=== PATIENT | female | born 1940 | race Caucasian/White ===

== ENCOUNTER 2022-09-11 12:00 | Outpatient (OUT) | payer MEDICARE, SELFPAY | END 2022-09-11 12:01 | disposition home or self-care (01) | LOC: PST 09-20 18:29 | PROVIDERS: PCP Internal Medicine; Visit Provider Surgery | DX: Z01.818 Encounter for other preprocedural examination (principal); R19.4 Change in bowel habit ==

== ENCOUNTER 2022-09-19 07:12 | Day surgery (SDC) | payer MEDICARE, SELFPAY ==
--- NOTE | 2022-09-19 | OP_ITS ---
OPERATION DATE: ??09/19/2022 PREOPERATIVE DIAGNOSIS:? Change in bowel habits with frequent loose stools. POSTOPERATIVE DIAGNOSIS:? Redundant with sigmoid diverticulosis and a patulous ileocecal valve, normal terminal ileum. PROCEDURE:? Colonoscopy to terminal ileum. SURGEON:? Pj Whatley M.D. ANESTHESIA:? Monitored anesthesia care. ESTIMATED BLOOD LOSS:? Zero. INDICATIONS AND CONSENT:? Patient is an 82-year-old female with history of intermittent loose stools, which has been a change in bowels for her.? Indications, risks, benefits, alternatives of proceeding with colonoscopy were explained extensively to the patient, including the risks of bleeding, colon perforation or anesthetic complications.? All of her questions were answered.? Informed consent was obtained. PROCEDURE:? Patient brought to the operating room, placed in the left lateral decubitus position.? Monitored anesthesia care was provided.? Rectal exam was performed which showed no masses or blood.? The scope was inserted into the anal canal.? Under direct visualization was advanced.? With the aid of abdominal compression, it was advanced to the cecum where cecal markings were clearly identified.? There was noted to be a good prep.? Upon withdrawal of the scope, mucosal surfaces were carefully examined.? There were no mass lesions or polyps.? No inflammatory changes or ulcerations.? There was noted to be a patulous ileocecal valve and the terminal ileum had been intubated, and there were no inflammatory changes or ulcerations.? There was moderate sigmoid diverticulosis as well as some redundancy of the colon. ?The scope was retroflexed in the anal canal.? There was no significant hemorrhoidal disease.? The scope was then withdrawn.? Patient tolerated procedure well, was sent to recovery room in good condition. no further colorectal screening required. CC:? [facility]
[2022-09-19 07:37] VITALS: BP 148/91; PULSE 99; RESP 16; TEMP 36.3; O2SAT 98; BMI 27.7
[2022-09-19] MEDS: LACTATED RINGER'S SOLUTION 1,000 ML 50 ML IV (07:48)
[2022-09-19 08:25] VITALS: BP 132/78; PULSE 90; RESP 18; TEMP 36.6; O2SAT 95
[2022-09-19 08:39] VITALS: BP 158/99; PULSE 72; RESP 16; O2SAT 98
[2022-09-19 08:53] VITALS: BP 160/87; PULSE 69; RESP 18; O2SAT 98
== END 2022-09-19 08:55 | disposition home or self-care (01) ==
PROVIDERS: PCP Internal Medicine; Visit Provider Surgery
PROC: (CPT 45378; principal; 2022-09-19 08:20)
DX: R19.4 Change in bowel habit (principal); K57.30 Diverticulosis of large intestine without perforation or abscess without bleeding; Z85.3 Personal history of malignant neoplasm of breast; K21.9 Gastro-esophageal reflux disease without esophagitis; I10 Essential (primary) hypertension; E78.5 Hyperlipidemia, unspecified; M06.9 Rheumatoid arthritis, unspecified; Z79.899 Other long term (current) drug therapy
CPT/HCPCS: 45378; J2704

== ENCOUNTER 2022-12-06 09:11 | Outpatient (OUT) | payer MEDICARE, SELFPAY ==
[2022-12-06 09:35] LABS: Basophils Percent Auto 0.6 % (0.2-2.0); Eosinophils Absolute Auto 0.1 10^3/uL (0.0-0.7); Eosinophils Percent Auto 1.1 % (0.9-7.0); Hematocrit 39.4 % (36.0-48.0); Immature Granulocytes Abs Auto 0.02 10^3/uL (0.00-0.03); Immature Granulocytes Pct Auto 0.3 % (0.0-0.5); Lymphocytes Absolute Auto 1.6 10^3/uL (1.2-3.8); Lymphocytes Percent Auto 24.5 % (20.5-60.0); Mean Corpuscular Hemoglobin 29.1 pg (26.7-34.0); Mean Corpuscular Volume 88.1 fL (81.0-99.0); Mean Platelet Volume 10.8 fL (9.5-13.5); Monocytes Absolute Auto 0.6 10^3/uL (0.3-0.8); Monocytes Percent Auto 8.6 % (1.7-12.0); Neutrophils Absolute Auto 4.2 10^3/uL (1.4-6.5); Neutrophils Percent Auto 64.9 % (43.0-75.0); Platelet Count 205 10^3/uL (150-450); Red Blood Count 4.47 10^6/uL (4.20-5.40); Red Cell Distribution Width 14.8 % (11.0-15.0); White Blood Count 6.5 10^3/uL (4.0-11.0)
[2022-12-06 10:40] LABS: Estimated Average Glucose 120 mg/dL; Glycohemoglobin A1C 5.8 % (4.5-6.2)
[2022-12-06 10:45] LABS: Anion Gap 8.2; BUN Creatinine Ratio 14.3; Calcium 9.5 mg/dL (8.5-10.1); Carbon Dioxide 32.6 mmol/L (21.0-32.0); Chloride 99 mmol/L (98-107); Chol HDL Ratio 2.7; Cholesterol 186 mg/dL (<=200); Estimated GFR (African America >60 (>=60); Estimated GFR (Non-African Ame 59 (>=60); Glucose 108 mg/dL (74-106); HDL Cholesterol 70 mg/dL (40-60); Potassium 3.8 mmol/L (3.5-5.1); Sodium 136 mmol/L (136-145); Thyroid Stimulating Hormone 3.554 uIU/mL (0.358-3.740); Triglycerides 109 mg/dL (<=150); VLDL CHOLESTEROL 21.8 mg/dL
[2022-12-06 12:59] LABS: Bilirubin Urine NEGATIVE (NEGATIVE); Blood Urine SMALL (NEGATIVE); Clarity Urine CLEAR (CLEAR); Color Urine YELLOW (YELLOW); Glucose Urine UA NEGATIVE (NEGATIVE); Ketones Urine NEGATIVE (NEGATIVE); Leukocyte Esterase Urine LARGE (NEGATIVE); Nitrite Urine NEGATIVE (NEGATIVE); Protein Urine TRACE mg/dL (NEG/TRACE); Urobilinogen Urine 0.2 EU/dL (0.2-1.0)
[2022-12-06 13:21] LABS: Bacteria Urine MODERATE #/HPF (NONE SEEN); Mucus Urine NONE SEEN (NONE SEEN); Squamous Epithelial Cell Urine FEW #/LPF (NONE/RARE); WBC Urine 20-50 #/HPF (NONE SEEN)
[2022-12-06 13:22] LABS: Cast Seen? NONE SEEN #/LPF (NONE SEEN); Crystals Seen? None Seen #/HPF (None Seen); Urine Culture Indicated ALREADY ORDERED
== END 2022-12-06 09:12 | disposition home or self-care (01) ==
LOC: LAB 09:13
PROVIDERS: PCP Internal Medicine; Visit Provider Internal Medicine
DX: E78.01 Familial hypercholesterolemia (principal); I10 Essential (primary) hypertension; R73.01 Impaired fasting glucose; R35.89 Other polyuria; Z79.899 Other long term (current) drug therapy; R53.83 Other fatigue
CPT/HCPCS: 36415; 80048; 80061; 81001; 83036; 84443; 85025; 87086; 87186

== ENCOUNTER 2022-12-24 10:43 | Outpatient (OUT) | payer MEDICARE, SELFPAY ==
--- NOTE | 2022-12-24 | XR_ITS ---
[address] [address] Patient Name: MITCH LUNSFORD MRN: [id number] date: 1940 Sex: F Assigned Patient Location: [facility] Current Patient Location: [facility] Accession/Order Number: [id number] Exam Date: 12/24/2022 11:20 Report Date: 12/24/2022 11:46 At the request of: VELVET MEEHAN Procedure: XR DEXA axial skeleton EXAMINATION: XR DEXA axial skeleton HISTORY: Z78.0, menopause COMPARISON: DEXA bone densitometry 09/23/2020 TECHNIQUE: Dual-energy X-ray absorptiometry (DXA) was performed. FINDINGS: SPINE ANALYSIS: Average bone mineral density is 1.108 g/cm2. T-score (standard deviation relative to young adult mean): -0.6 . +1.2% change since prior study. HIP ANALYSIS: Lowest bone mineral density is within the left femoral neck, 0.733 g/cm2. T-score (standard deviation relative to young adult mean): -2.2 . -1.8% change since prior study. XR/XR DEXA axial skeleton IMPRESSION: World [employer] Classification: Osteopenia - Moderate Fracture Risk Electronically authenticated by: ИРИНА MERCHANT Date: 12/24/2022 11:46
== END 2022-12-24 10:44 | disposition home or self-care (01) ==
LOC: RAD 10:43
PROVIDERS: PCP Internal Medicine; Visit Provider Internal Medicine
DX: Z78.0 Asymptomatic menopausal state (principal); M85.80 Other specified disorders of bone density and structure, unspecified site
CPT/HCPCS: 77080

== ENCOUNTER 2024-01-09 08:59 | Outpatient (OUT) | payer MEDICARE, SELFPAY ==
--- NOTE | 2024-01-09 09:02 | MM_ITS ---
Patient Name: MITCH LUNSFORD MR#: [id number] : 1940 Exam Date: 01/09/2024 Ordering Doctor: DR Kirby Bernal D.O. RADIOLOGY REPORT PROCEDURE: MM TOMOSYNTHESIS SCREENING BI COMPARISON: MG MAMM DIAGNOSTIC 3D [place] CAD, 10/20/2021. MG MAMM DIAGNOSTIC 3D [place] CAD, 09/23/2020. MG MAMM [place] DIAG W CAD, 09/17/2019. MAMMO POST BIOPSY UNILATERAL RIGHT, 06/20/2012. INDICATIONS: Screening Calculator Name NCI Breast Cancer Risk Assessment Tool 5 Year Breast Cancer Risk n/a% Lifetime Breast Cancer Risk n/a% Personal Breast Cancer Yes, 2012 right lumpectomy Personal Ovarian Cancer No Treatments radiation and chemotherapy Family Cancers Sister with breast cancer at age 63; Sister with breast cancer at age 70; Mother with ovarian cancer at age 59. LOCATION: [facility] BREAST COMPOSITION: There are scattered areas of fibroglandular density. FINDINGS: DIAGNOSTIC CATEGORY 2--BENIGN FINDING: RIGHT BREAST: No significant suspicious finding. No significant change has occurred. LEFT BREAST: No significant suspicious finding. Scattered benign-appearing calcifications are present. RECOMMENDATIONS: ROUTINE MAMMOGRAM AND CLINICAL EVALUATION IN 12 MONTHS. PLEASE NOTE: A NORMAL MAMMOGRAM DOES NOT EXCLUDE THE POSSIBILITY OF BREAST CANCER. A CLINICALLY SUSPICIOUS PALPABLE LUMP SHOULD BE BIOPSIED. Dictated by: Jose Yousif M.D. on 01/10/2024 at 08:10 Approved by: Jose Yousif M.D. on 01/10/2024 at 08:17
--- OUTSIDE RECORDS SUMMARY | 2024-01-09 09:13 | XMS_ITS | CCD ---
Author Organization [facility] Care Team Providers Care Senior Financial Analyst Name Role Phone DR JOSE YOUSIF Consulting Unavailable GABE, DR VERDIN Admitting Unavailable GABE, DR VERDIN Attending Unavailable GABE, DR VERDIN Primary Care Unavailable GABE, DR VERDIN Primary Care Unavailable GABE, DR VERDIN Admitting Unavailable GABE, DR VERDIN Attending Unavailable GABE, DR VERDIN Consulting Unavailable SHONDA, DR JOSE Xavier Consulting Unavailable KIRBY BERNAL Primary Care Physician Pj BANEGAS Attending Unavailable Kirby Bernal Unavailable JO ANN DIEGO Attending Unavailable MYLES, JO ANN Mcknight Attending Unavailable JO ANN DIEGO Attending Unavailable JO ANN DIEGO Attending Unavailable JO ANN DIEGO Attending Unavailable JO ANN DIEGO Attending Unavailable JO ANN DIEGO Attending Unavailable Kirby Bernal MD Primary Care Provider Allergies Allergy Classification Reported Allergen(s) Allergy Type Date of Onset Reaction(s) Facility (1 source) Sulfonamides (Antibiotic) Drug allergy (disorder) 3 [facility] Repository (2 sources) Sulfonamides (Antibiotic); Translations: [sulfa drugs] Drug allergy 3 Urticaria (disorder) [facility] [place] (2 sources) Sulfonamides (Antibiotic) Drug Allergy 3 Hives, Rash [facility] Work Phone: Medications Current Medications Medication Drug Class(es) Dates Sig (Normalized) Sig (Original) atorvastatin 40 mg oral tablet (8 sources) HMG-CoA Reductase Inhibitor Start: 08-01-2022 End: 12-27-2023 take 40 mg by mouth once daily Atorvastatin Active 40 MG PO Daily 90 90 December 27, 2023 10:27am ciprofloxacin 250 mg oral tablet (3 sources) Quinolone Antimicrobial Start: 12-07-2022 ciprofloxacin (Cipro) 250 MG tablet 12/08/2022 Active hydroCHLOROthiazide 12.5 mg / lisinopril 20 mg oral tablet (8 sources) Thiazide Diuretic, Angiotensin Converting Enzyme Inhibitor Start: 10-16-2023 take 1 tablet by mouth once daily Lisinopril-Hydroc hlorothiazide Active 0 .ROUTE .COMPLEX 90 October 16, 2023 1:25pm Take 1 tablet by mouth once daily Start: 10-16-2023 End: 10-16-2023 take 1 tablet by mouth once daily Lisinopril-Hydrochlorothiazide Discontin ued 1 TAB PO Daily October 16, 2023 12:00am October 16, 2023 1:31pm Start: 08-13-2022 take 1 tablet by jigna th once daily hydrochlorothiazide-lisinopril 12.5 mg-2 0 mg Tab 1 tab(s), Oral, Daily, Refill(s) 0 Start Date: 08/13/22 Status: Ordered Start: 08-13-2022 lisinopril-hyd roCHLOROthiazide 20-12.5 MG tablet Take by mouth. 08/13/2022 Active metoprolol tartrate 25 mg oral tablet (7 sources) beta-Adrenergic Huy Start: 08-13-2022 take 25 mg by mouth twice daily Metoprolol Tartrate Active 25 MG PO Twice daily October 16, 2023 12:00am Problems Active Problems Problem Classification Problem Date Documented Date Episodic/Chronic Abdominal pain (5 sources) Pelvic and perineal pain; Translations: [PELVIC AND PERINEAL PAIN] Onset: 10-19-19 Episodic Cancer of breast (4 sources) Personal history of malignant neoplasm of breast; Translations: [History of malignant neoplasm of breast] Onset: 10-25-19 22 08-13-2022 Episodic Cardiac dysrhythmias (3 sources) Intermittent palpitations; Translations: [Palpitations] Episodic Cataract (2 sources) Bilateral age-related nuclear cataracts; Translations: [Age-related nuclear cataract, bilateral] Onset: 12-17-19 24 12-17-2023 Chronic Diabetes mellitus without complication (6 sources) Impaired fasting glucose; Translations: [Impaired fasting glycemia] Onset: 10-25-19 22 08-13-2022 Episodic Disorders of lipid metabolism (8 sources) Familial hypercholesterolemia; Translations: [Hyperlipidemia] Onset: 10-25-1908-13-2022 Chronic Diverticulosis and diverticulitis (1 source) Diverticular disease 08-17-2022 Chronic Esophageal disorders (5 sources) Gastroesophageal reflux disease; Translations: [Gastro-esophageal reflux disease without esophagitis] 08-13-2022 Chronic Essential hypertension (14 sources) Essential (primary) hypertension; Translations: [Hypertensive disorder] Onset: 10-21-19 Chronic Hemorrhoids (1 source) Internal hemorrhoids 08-17-2022 Episodic Inflammation; infection of eye (except that caused by tuberculosis or sexually transmitteddisease) (3 sources) Keratoconjunctivitis sicca; Translations: [Keratoconjunctivitis sicca, not specified as Sjogren's, bilateral] Onset: 07-03-1907-03-2023 Chronic Malaise and fatigue (1 source) Other fatigue Episodic Other aftercare (2 sources) Other mcc (current) drug therapy; Translations: [OTH [facility] CURRENT DRUG THERAPY] Onset: 10-25-19 Episodic Other bone disease and musculoskeletal deformities (1 source) Osteopenia 08-13-2022 Episodic Other bone disease and musculoskeletal deformities (3 sources) Other specified disorders of bone density and structure, left thigh; Translations: [Osteopenia of neck of left femur] Episodic Other bone disease and musculoskeletal deformities (3 sources) Other specified disorders of bone density and structure, right thigh; Translations: [Osteopenia of neck of right femur] Episodic Other gastrointestinal disorders (5 sources) Irritable bowel syndrome; Translations: [Mixed irritable bowel syndrome] 08-13-2022 Chronic Other gastrointestinal disorders (1 source) Mixed irritable bowel syndrome Chronic Other gastrointestinal disorders (1 source) Irritable bowel syndrome without diarrhea; Translations: [Irritable bowel syndrome] 12-27-2023 Chronic Other gastrointestinal disorders (2 sources) Diarrhea; Translations: [Diarrhea, unspecified] Onset: 08-22-19 Episodic Other gastrointestinal disorders (5 sources) Altered bowel function; Translations: [Change in bowel habit] Onset: 08-22-19 Episodic Other gastrointestinal disorders (4 sources) Urgent desire for stool; Translations: [Fecal urgency] 08-13-2022 Episodic Other gastrointestinal disorders (3 sources) Abdominal bloating; Translations: [Abdominal distension (gaseous)] Episodic Other nutritional; endocrine; and metabolic disorders (1 source) Overweight 08-21-2022 Episodic Other nutritional; endocrine; and metabolic disorders (1 source) Overweight in adulthood with body mass index of 25 or more but less than 30 08-21-2022 Episodic Other screening for suspected conditions (not mental disorders or infectious disease) (3 sources) Encounter for screening mammogram for malignant neoplasm of breast; Translations: [Patient encounter status] Episodic Other upper respiratory disease (1 source) Seasonal allergic rhinitis 08-13-2022 Chronic Other upper respiratory disease (3 sources) Allergic rhinitis due to pollen; Translations: [Allergic rhinitis due to pollen] Chronic Residual codes; unclassified (1 source) Family history of malignant neoplasm of breast; Translations: [FAMILY HX MALIG NEOPLASM OF BREAST] Onset: 10-25-19 Episodic Residual codes; unclassified (1 source) Family history of malignant neoplasm of ovary; Translations: [FAM HX MALIGNANT NEOPLASM OVARY] Onset: 10-25-19 Episodic Residual codes; unclassified (1 source) Asymptomatic menopausal state Episodic Retinal detachments; defects; vascular occlusion; and retinopathy (3 sources) Exudative age-related macular degeneration; Translations: [Exudative age-related macular degeneration, right eye, with active choroidal neovascularization] Onset: 08-28-19 23 08-27-2022 Chronic Rheumatoid arthritis and related disease (3 sources) Rheumatoid arthritis; Translations: [Rheumatoid arthritis, unspecified] Onset: 12-03-19 14 08-13-2022 Chronic Spondylosis; intervertebral disc disorders; other back problems (6 sources) Cervical spondylosis; Translations: [Cervical spondylosis without myelopathy] 08-13-2022 Chronic Urinary tract infections (1 source) Acute cystitis without hematuria Episodic Past or Other Problems Problem Classification Problem Date Documented Da te Episodic/Chronic Unclassified (1 source) Polyuria R35.89 Results Test Name Value Interpretation Reference Range Facility Optical coherence tomography study reporton 12-17-2023 [facility] Radiology Study observation (narrative) [facility] Healthcare Study observation Right reti na by OCTon 12-17-2023 [facility] Validascar e Radiology Study observation (narrative) [facility] Healthcare Outside Colonoscopyon 2022 Outside Colonoscopy [id number] [id number]:127 Normal [facility] Consent for Procedure/Surger yon 08-22-2022 Consent for Procedure/Surgery [id number] 4#[id number]:127 Normal [facility] Ambulatory Visit Summaryon 0 08-21-2022 Ambulatory Visit Summary MITCH LUNSFORD Farzana :1940 Visit Date:08/21/2022 Ambulatory Visit Instructions Your Diagnosis Change in bowel habits Frequent loose stools Your Care Team Attending Physician - MAKENZIE PONCE, Pj Xavier Primary Care Physician - KIRBY BERNAL DO This Is Your Medications List Contact prescribing physician if questions or concerns atorvastatin (atorvastatin 40 mg Tab) hydrochlorothiazide -lisinopril (hydrochlorothiazid e-lisinopril 12.5 mg-20 mg Tab) metoprolol (Metoprolol tartrate 25 mg Tab) Procedures Performed Colonoscopy (06/12/2013), Lumpectomy of breast (2012), Right hemithyroidectomy. Discharge Vitals Heart Rate (Peripheral) 72 Respiratory Rate 16 Blood Pressure 118/86 Height 158.7 cm Height 62 in Weight 67.4 kg Weight 148.28 lb BMI 26.76 Medications What How Much When Instructions Unchanged atorvastatin (atorvastatin 40 mg Tab) 1 Tablets By Mouth Every day Contact prescribing physician if questions or concerns Unchanged hydrochlorothiazide -lisinopril (hydrochlorothiazid e-lisinopril 12.5 mg-20 mg Tab) 1 Tablets By Mouth Every day Contact prescribing physician if questions or concerns Unchanged metoprolol (Metoprolol tartrate 25 mg Tab) 1 Tablets By Mouth 2 times a day Contact prescribing physician if questions or concerns Allergies sulfa drugs (Urticaria) Problems Ongoing - Any problem that you are currently receiving treatment for. BMI 26.0-26.9,adult Cervical spondylosis Change in bowel habits Diverticulosis Fecal urgency Frequent loose stools GERD (gastroesophageal reflux disease) History of breast cancer HTN (hypertension) Hyperlipidemia IBS (irritable bowel syndrome) IFG (impaired fasting glucose) Internal hemorrhoids Osteopenia Overweight Rheumatoid arthritis Seasonal allergic rhinitis Rc [facility] Ambulatory Visit Summary MITCH LUNSFORD Farzana :1940 Visit Date:08/21/2022 Ambulatory Visit Instructions Your Diagnosis Change in bowel habits Frequent loose stools Your Care Team Attending Physician - MAKENZIE PONCE, Pj Xavier Primary Care Physician - KIRBY BERNAL DO This Is Your Medications List Contact prescribing physician if questions or concerns atorvastatin (atorvastatin 40 mg Tab) hydrochlorothiazide -lisinopril (hydrochlorothiazid e-lisinopril 12.5 mg-20 mg Tab) metoprolol (Metoprolol tartrate 25 mg Tab) Procedures Performed Colonoscopy (06/12/2013), Lumpectomy of breast (2012), Right hemithyroidectomy. Discharge Vitals Heart Rate (Peripheral) 72 Respiratory Rate 16 Blood Pressure 118/86 Height 158.7 cm Height 62 in Weight 67.4 kg Weight 148.28 lb BMI 26.76 Medications What How Much When Instructions Unchanged atorvastatin (atorvastatin 40 mg Tab) 1 Tablets By Mouth Every day Contact prescribing physician if questions or concerns Unchanged hydrochlorothiazide -lisinopril (hydrochlorothiazid e-lisinopril 12.5 mg-20 mg Tab) 1 Tablets By Mouth Every day Contact prescribing physician if questions or concerns Unchanged metoprolol (Metoprolol tartrate 25 mg Tab) 1 Tablets By Mouth 2 times a day Contact prescribing physician if questions or concerns Allergies sulfa drugs (Urticaria) Problems Ongoing - Any problem that you are currently receiving treatment for. BMI 26.0-26.9,adult Cervical spondylosis Change in bowel habits Diverticulosis Fecal urgency Frequent loose stools GERD (gastroesophageal reflux disease) History of breast cancer HTN (hypertension) Hyperlipidemia IBS (irritable bowel syndrome) IFG (impaired fasting glucose) Internal hemorrhoids Osteopenia Overweight Rheumatoid arthritis Seasonal allergic rhinitis Normal [facility] Physician Referralon 023 Physician Referral [id number]:127 Normal [facility] CBC AUTO DIFFon 10-20-2021 BASO # 0.0 103/ul Normal 0.0-0.1 [facility] Comment on above: Performed By: #### C BC #### [facility] [address] [place], [place] [address] Dr. Zion Baugh Basophils/100 WBC (Bld) 0.6 % Normal 0.2-2.0 [facility] Comment on above: Performed By: #### C BC #### [facility] [address] [place] [address] Dr. Zion Baugh EO # 0.1 103/ul Normal 0.0-0.7 [facility] Comment on above: Performed By: #### C BC #### [facility] [address] [place] [address] Dr. Zion Baugh Eosinophils/100 WBC (Bld) 1.1 % Normal 0.9-7.0 [facility] Comment on above: Performed By: #### C BC #### [facility] [address] [place] [address] Dr. Zion Baugh Erythrocyte distribution width (RBC) [Ratio] 14.7 % Normal 11.0-15.0 [facility] Comment on above: Performed By: #### C BC #### [facility] [address] [place] [address] Dr. Zion Baugh Hematocrit (Bld) [Volume fraction] 39.9 % Normal 36.0-48.0 [facility] Comment on above: Performed By: #### C BC #### [facility] [address] [place] [address] Dr. Zion Baugh Hemoglobin (Bld) [Mass/Vol] 13.1 g/dL Normal 12.0-16.0 [facility] Comment on above: Performed By: #### C BC #### [facility] [address] [place] [address] Dr. Zion Baugh IG # 0.02 10e3/ul Normal 0.00-0.03 [facility] Comment on above: Performed By: #### C BC #### [facility] [address] [place] [address] Dr. Zion Baugh IG % 0.3 % Normal 0.0-0.5 [facility] Comment on above: Performed By: #### C BC #### [facility] [address] [place] [address] Dr. Zion Baugh LYMPH # 1.7 103/ul Normal 1.2-3.8 [facility] Comment on above: Performed By: #### C BC #### [facility] [address] [place] [address] Dr. Zion Baugh Lymphocytes/100 WBC (Bld) 26.1 % Normal 20.5-60.0 [facility] Comment on above: Performed By: #### C BC #### [facility] [address] [place] [address] Dr. Zion Baugh MANUAL DIFF REQ NO Normal [facility] Comment on above: Performed By: #### C BC #### [facility] [address] [place] [address] Dr. Zion Baugh MCH (RBC) [Entitic mass] 28.4 pg Normal 26.7-34.0 [facility] Comment on above: Performed By: #### C BC #### [facility] [address] [place] [address] Dr. Zion Baugh MCHC (RBC) [Mass/Vol] 32.8 g/dL Normal 29.9-35.2 [facility] Comment on above: Performed By: #### C BC #### [facility] [address] [place] [address] Dr. Zion Baugh MCV (RBC) [Entitic vol] 86.4 fL Normal 81.0-99.0 [facility] Comment on above: Performed By: #### C BC #### [facility] [address] [place] [address] Dr. Zion Baugh MONO # 0.6 103/ul Normal 0.3-0.8 [facility] Comment on above: Performed By: #### C BC #### [facility] [address] [place] [address] Dr. Zion Baugh Monocytes/100 WBC (Bld) 8.6 % Normal 1.7-12.0 [facility] Comment on above: Performed By: #### C BC #### [facility] [address] [place] [address] Dr. Zion Baugh NEUT # 4.0 103/ul Normal 1.4-6.5 [facility] Comment on above: Performed By: #### C BC #### [facility] [address] [place] [address] Dr. Zion Baugh Neutrophils/100 WBC (Bld) 63.3 % Normal 43.0-75.0 [facility] Comment on above: Performed By: #### C BC #### [facility] [address] [place] [address] Dr. Zion Baugh Platelet mean volume (Bld) [Entitic vol] 10.5 fL Normal 9.5-13.5 [facility] Comment on above: Performed By: #### C BC #### [facility] [address] [place] [address] Dr. Zion Baugh PLT 235 103/ul Normal 150-450 [facility] Comment on above: Performed By: #### C BC #### [facility] [address] [place] [address] Dr. Zion Baugh RBC 4.62 106/ul Normal 4.20-5.40 [facility] Comment on above: Performed By: #### C BC #### [facility] [address] [place] [address] Dr. Zion Baugh WBC 6.4 103/ul Normal 4.0-11.0 [facility] Comment on above: Performed By: #### C BC #### [facility] [address] [place] [address] Dr. Zion Baugh DIRECT LDLon 10-20-2021 Cholesterol in LDL [Mass/Vol] 88 mg/dL Normal [facility] Comment on above: Performed By: #### B CARLOS DLDL #### [facility] [address] [place] [address] Dr. Zion Baugh DLDL NORMAL SEE BELOW Normal [facility] Comment on above: Result Comment: <100 mg/dl OPTIMAL 100 - 129 mg/dl NEAR OR ABOVE OPTIMAL 130 - 159 mg/dl BORDERLINE HIGH 160 - 189 mg/dl HIGH >190 mg/dl VERY HIGH Performed By: #### B CARLOS DLDL #### [facility] [address] [place] [address] Dr. Zion Baugh GLYCOHEMOGLOBIN A1Con 2021 ADA RECOMMENDATION SEE BELOW Normal [facility] Comment on above: Result Comment: ADA RECOMMENDED LIMIT 4.0 - 6.0 ADA THERAPEUTIC TARGET < 7.0 ACTION SUGGESTED > 7.0 Performed By: #### A 1C #### [facility] [address] [place], [place] [address] Dr. Zion Baugh Glucose [Mass/Vol] 114 mg/dL Normal [facility] Comment on above: Performed By: #### A 1C #### [facility] [address] [place], [place] [address] Dr. Zion Baugh HbA1c (Bld) [Mass fraction] 5.6 % Normal 4.5-6.2 [facility] Comment on above: Performed By: #### A 1C #### [facility] [address] [place], [place] [address] Dr. Zion Baugh MG MAMM DIAGNOSTIC 3D GILBERT CA Don 10-20-2021 MG MAMM DIAGNOSTIC 3D GILBERT CAD Patient: MITCH LUNSFORD Exam Date: 10/20/2021 : 1940 Gender:F Ordering : DR KIRBY BERNAL D.O. Admission #: [id number] Family : Order #: [id number] CLICK HERE TO VIEW EXAM RADIOLOGY REPORT PROCEDURE: MAMMOGRAM DIAGNOSTIC 3D BILATERAL CAD COMPARISON: MG MAMM DIAGNOSTIC 3D GILBERT CAD, 09/23/2020. MG MAMM GILBERT DIAG W CAD, 09/17/2019. INDICATIONS: Personal history of malignant neoplasm of breast Calculator Name NCI Breast Cancer Risk Assessment Tool 5 Year Breast Cancer Risk n/a% Lifetime Breast Cancer Risk n/a% Personal Breast Cancer Yes, 2012 right lumpectomy Personal Ovarian Cancer No Treatments radiation and chemotherapy Family Cancers Sister with breast cancer at age 63; Sister with breast cancer at age 70; Mother with ovarian cancer at age 59. LOCATION: [facility] BREAST COMPOSITION: Scattered areas fibroglandular density. FINDINGS: DIAGNOSTIC CATEGORY 2--BENIGN FINDING: RIGHT BREAST: No significant suspicious finding. Scattered benign-appearing calcifications are present. Stable mild postsurgical scarring within the upper-outer quadrant. No significant change has occurred. LEFT BREAST: No significant suspicious finding. Scattered benign-appearing calcifications are present. No significant change has occurred. RECOMMENDATIONS: ROUTINE MAMMOGRAM AND CLINICAL EVALUATION IN 12 MONTHS. PLEASE NOTE: A NORMAL MAMMOGRAM DOES NOT EXCLUDE THE POSSIBILITY OF BREAST CANCER. A CLINICALLY SUSPICIOUS PALPABLE LUMP SHOULD BE BIOPSIED. Dictated by: Jose Yousif M.D. on 10/20/2021 at 09:32 Approved by: Jose Yousif M.D. on 10/20/2021 at 09:35 Normal [facility] PROF CHEM 8 (BAS METB)on Anion gap [Moles/Vol] 8.5 mmol/L Normal [facility] Comment on above: Performed By: #### B MP, DLDL #### [facility] [address] [place] [address] Dr. Zion Baugh Calcium [Mass/Vol] 9.4 mg/dL Normal 8.5-10.1 [facility] Comment on above: Performed By: #### B CARLOS, DLDL #### [facility] [address] [place] [address] Dr. Zion Baugh Chloride [Moles/Vol] 98 mmol/L Normal 98-107 [facility] Comment on above: Performed By: #### B CARLOS, DLDL #### [facility] [address] [place] [address] [address] Zion Baugh CO2 [Moles/Vol] 33.1 mmol/L Critically high 21.0-32.0 [facility] Comment on above: Performed By: #### B CARLOS, DLDL #### [facility] [address] [place] [address] Dr. Zion Baugh Creatinine [Mass/Vol] 0.75 mg/dL Normal 0.55-1.02 [facility] Comment on above: Performed By: #### B CARLOS, DLDL #### [facility] [address] [place] [address] Dr. Zion Baugh EGFR-AF URUGUAYAN >60 Normal >=60 [facility] Comment on above: Performed By: #### B MP, DLDL #### [facility] [address] [place] [address] Dr. Zion Baugh EGFR-NON AF URUGUAYAN 74 mL/min/1.73m2 Normal >=60 [facility] Comment on above: Performed By: #### B MP, DLDL #### [facility] [address] [place] [address] Dr. Zion Baugh Glucose [Mass/Vol] 123 mg/dL Critically high 74-106 [facility] Comment on above: Performed By: #### B CARLOS, DLDL #### [facility] [address] [place] [address] Dr. Zion Baugh Potassium [Moles/Vol] 3.6 mmol/L Normal 3.5-5.1 [facility] Comment on above: Performed By: #### B CARLOS, DLDL #### [facility] [address] [place] [address] Dr. Zion Baugh Sodium [Moles/Vol] 136 mmol/L Normal 136-145 [facility] Comment on above: Performed By: #### B CARLOS, DLDL #### [facility] [address] [place] [address] Dr. Zion Baugh Urea nitrogen [Mass/Vol] 16.0 mg/dL Normal 7.0-18.0 [facility] Comment on above: Performed By: #### B CARLOS, DLDL #### [facility] [address] [place] [address] Dr. Zion Baugh Urea nitrogen/Creatinine [Mass ratio] 21.3 mg/mg Normal [facility] Comment on above: Performed By: #### B CARLOS, DLDL #### [facility] [address] [place] [address] Dr. Zion Baugh UA RANDOM W/MICROSCOPICon BACTERIA SMALL Abnormal NONE SEEN [facility] Comment on above: Performed By: #### U AMIC #### [facility] [address] [place] [address] Dr. Zion Baugh Bilirubin Ql (U) Negative Normal NEGATIVE [facility] Comment on above: Performed By: #### U AMIC #### [facility] [address] [place] [address] Dr. Zion Baugh CAST NONE SEEN Normal NONE SEEN [facility] Comment on above: Performed By: #### U AMIC #### [facility] [address] [place] [address] Dr. Zion Baugh Clarity (U) SL CLOUDY Abnormal CLEAR [facility] Comment on above: Performed By: #### U AMIC #### [facility] [address] [place] [address] [address] Zion Baugh Color (U) LT. YELLOW Normal YELLOW [facility] Comment on above: Performed By: #### U AMIC #### [facility] [address] [address] [address] Zion Baugh Crystals LM Nom (Urine sed) NONE SEEN Normal NONE SEEN [facility] [facility] Comment on above: Performed By: #### U AMIC #### [facility] [address] [address] [address] Zion Baugh Epithelial cells LM Ql (Urine sed) FEW Abnormal NONE SEEN /RARE [facility] Comment on above: Performed By: #### U AMIC #### [facility] [address] [place] [address] Dr. Zion Baugh Glucose Ql (U) Negative Normal NEGATIVE [facility] Comment on above: Performed By: #### U AMIC #### [facility] [address] [address] [address] Zion Baugh Hemoglobin Ql (U) TRACE-INTACT Abnormal NEGATIVE [facility] Comment on above: Performed By: #### U AMIC #### [facility] [address] [address] [address] Zion Baugh Ketones Ql (U) Negative Normal NEGATIVE [facility] Comment on above: Performed By: #### U AMIC #### [facility] [address] [address] [address] Zion Baugh LEUKOCYTES MODERATE Abnormal NEGATIVE [facility] Comment on above: Performed By: #### U AMIC #### [facility] [address] [address] [address] Zion Baugh MUCOUS NONE SEEN Normal NONE SEEN [facility] Comment on above: Performed By: #### U AMIC #### [facility] [address] [place] [address] Dr. Zion Baugh Nitrite Ql (U) Negative Normal NEGATIVE [facility] Comment on above: Performed By: #### U AMIC #### [facility] [address] [address] [address] Zion Baugh pH (U) 6.0 [pH] Normal 5-9 [facility] Comment on above: Performed By: #### U AMIC #### [facility] [address] [address] [address] Zion Baugh RBC NONE SEEN Abnormal 0-2 [facility] Comment on above: Performed By: #### U AMIC #### [facility] [address] [address] [address] Zion Baugh SPEC GRAVITY 1.015 Normal 1.005-<=1.025 The [facility] Comment on above: Performed By: #### U AMIC #### [facility] [address] [place] [address] Dr. Zion Baugh UA PROTEIN Negative Normal NEGATIVE/ TRACE [facility] Comment on above: Performed By: #### U AMIC #### [facility] [address] [place] [address] Dr. Zion Baugh Urobilinogen Qn (U) 0.2 {Dona'U}/dL Normal 0.2 - 1. 0 [facility] Comment on above: Performed By: #### U AMIC #### [facility] [address] [place] [address] Dr. Zion Baugh WBC 2-5 Abnormal NONE SEEN [facility] Comment on above: Performed By: #### U AMIC #### [facility] [address] [place] [address] Dr. Zion Baugh US PELVISon 10-19-2021 US PELVIS EXAMINATION: US PELVIS HISTORY: Pelvic and perineal pain , bloating, indigestion COMPARISON: No relevant comparison available. TECHNIQUE: Transabdominal sonographic examination. FINDINGS: UTERUS: 17 x 13 x 8 mm hyperechoic avascular area within left uterine fundus, likely a leiomyoma. Uterus size: 4 3.2 x 5.6 cm ENDOMETRIUM: Very thin; cannot be from myometrium. RIGHT OVARY: Not seen. LEFT OVARY: Not seen. CUL-DE-SAC: Unremarkable. No significant free fluid. BLADDER: Unremarkable. OTHER: None. IMPRESSION: 1. Slightly limited examination due to patient age and transabdominal imaging. 2. Small hyperechoic mass within uterine fundus, likely a leiomyoma. Electronically authenticated by: JOSE YOUSIF Date: 2021-10-19 09:40 Normal [facility] CNPTOUTREACHomaurilio 04-08-2020 [facility] Patient Outreach (COVAMN) ---- MITCH LUNSFORD ([id number]) 1940 F Date Time Provider Department 04/08/20 MERRICK TRAN During your visit today, we recorded the following information about you: Allergies As of Date: 04/08/2020 Noted Allergy Reaction SULFA (SULFONAMIDE ANTIBIOTICS) 07/01/2012 4 - Hives Date Reviewed: 07/09/2018 Reviewed by: Yeimy Arambula - Fully Assessed Order(s):SARS-COVID VACCINE 1ST DOSE APPT [[id number]] Order #: [id number] FUTURE Prescriptions as of 04/08/2020 Sig: PRESERVISION AREDS 2 ORAL Take by mouth once daily. ATORVASTATIN 40 MG TABLET Take 40 mg by mouth once shreya* CALCIUM 500 MG TABLET Take 500 mg by mouth three ti* CHOLECALCIFEROL (VITAMIN D3) * Take 1 capsule by mouth once * LISINOPRIL 20 MG-HYDROCHLOROT* Take 1 tablet by mouth once d* Problem List As Of Date 04/08/2020 Noted Resolved Breast cancer [C50.919] More... Hot flashes [R23.2] 12/03/2012 Joint ache [M25.50] 06/03/2013 RA (rheumatoid arthritis) (HCC) [M06.9] 12/02/2013 Letter Text Encounter Status:Closed by EPIC, PRODUSER on 04/11/20 Normal [facility] Vital Signs Date Time Vital Sign Value Performing Clinician Facility 12-27-2023 10: Body height 160.02 cm [facility] 12-27-2023 10:13-0400 Body mass index (BMI) [Ratio] 26.7 kg/m2 [facility] 12-27-2023 10:13-0400 Body weight 68.49 kg [facility] 12-27-2023 10:13-0400 Diastolic blood pressure 98 mm[Hg] [facility] 12-27-2023 10:13-0400 Heart rate 81 /min [facility] 12-27-2023 10:13-0400 Respiratory rate 12 /min [facility] 12-27-2023 10:13-0400 Systolic blood pressure 171 mm[Hg] [facility] 11-06-2022 10:00-0400 Body height 158.75 cm Kirby Ball Other [facility] Other 11-06-2022 10:00-0400 Body mass index (BMI) [Ratio] 26.78 kg/m2 Kirby Ball Other [facility] Other 11-06-2022 10:00-0400 Body weight 67.5 kg Kirby Ball Other [facility] Other 11-06-2022 10:00-0400 Diastolic blood pressure 94 mm[Hg] Kirby Ball Other [facility] Other 11-06-2022 10:00-0400 Respiratory rate 12 /min Kirby Ball Other [facility] Other 11-06-2022 10:00-0400 Systolic blood pressure 169 mm[Hg] Kirby Ball Other [facility] Other 08-21-2022 13:32-0400 Blood Pressure Location Pj BANEGAS [facility] [place] 08-21-2022 13:32-0400 Diastolic blood pressure 86 mm[Hg] Pj BANEGAS [facility] [place] 08-21-2022 13:32-0400 Heart rate 72 /min Pj BANEGAS [facility] [place] 08-21-2022 13:32-0400 Respiratory rate 16 /min Pj BANEGAS [facility] [place] 08-21-2022 13:32-0400 Systolic blood pressure 118 mm[Hg] Pj BANEGAS [facility] [place] Encounters Encounter Date Encounter Type Care Provider Facility Start: 12-27-2023 End: 12-27-2023 ambulatory [facility] Work Phone: Start: 12-27-2023 End: 12-27-2023 Patient encounter procedure [facility] Work Phone: Start: 12-26-2023 Non-patient / Non-visit [facility] Work Phone: Start: 12-24-2023 Patient encounter procedure [facility] Start: 12-17-2023 End: 12-17-2023 ambulatory JO ANN ROSASER Not Available Start: 12-17-2023 End: 12-17-2023 Bamboo flowsheet Jo Ann Hernandezhler DO Work Phone: [facility] Start: 12-17-2023 End: 12-17-2023 Bamboo flowsheet Jo Ann Hernandezhler DO Work Phone: [facility] Start: 10-16-2023 Non-patient / Non-visit [facility] Work Phone: Start: 10-07-2023 End: 10-07-2023 ambulatory JO ANNLARISA ROSASER Not Available Start: 08-28-2023 End: 08-28-2023 ambulatory JO ANN D SAMREENHLER Not Available Start: 07-03-2023 End: 07-03-2023 ambulatory JO ANN D ZAHLER Not Available Start: 05-08-2023 End: 05-08-2023 ambulatory JO ANN D SAMREENHLER Not Available Start: 03-13-2023 End: 03-13-2023 ambulatory JO ANN DIEGO Not Available Start: 01-15-2023 End: 01-15-2023 ambulatory JO ANN DIEGO Not Available Start: 12-07-2022 End: 12-07-2022 ambulatory Kirby Gabe Other [facility] Other Start: 12-07-2022 Telephone encounter Kirby WILEY [facility] Start: 12-06-2022 End: 12-06-2022 ambulatory Kirby Gabe Other [facility] Other Start: 12-06-2022 Telephone encounter Kirby WILEY Juan [facility] Start: 11-06-2022 End: 11-06-2022 ambulatory Kirby Bernal Other [facility] Other Start: 11-06-2022 Patient encounter procedure Kirby BERNAL [facility] Start: 08-21-2022 End: 08-22-2022 ambulatory Pj BANEGAS Facility:[facility] Start: 08-21-2022 End: 08-21-2022 Patient encounter procedure Pj R NILL [facility] Start: 08-17-2022 ambulatory Pj BANEGAS Facility:[facility] Start: 08-13-2022 ambulatory Pj BANEGAS Facility:[facility] Start: 10-20-2021 End: 10-21-[address] KIRBY BERNAL Facility:[facility] Start: 10-18-2021 End: 10-19-[address] JOSE YOUSIF Facility:[facility] Procedures Date Procedure Procedure Detail Performing Clinician Start: 12-17-2023 End: 12-17-2023 Computerized ophthalmic imaging retina Jo Ann Diego DO Work Phone: Start: 12-17-2023 End: 12-17-2023 [facility] medical xm&eval comprhnsv estab pt 1/> Exudative age-related macular degeneration of right eye with active choroidal neovascularization (CMS/HCC) Jo Ann Diego DO Work Phone: Comment on above: Retinal Injection; F ollow-up; Macular Degeneration Start: 06-12-2013 Colonoscopy Pj VACA Start: 03-04-2012 Lumpectomy of breast Kaitlynn BANEGAS Excision of right lo be of thyroid gland Pj BANEGAS Plan of Treatment Date Care Activity Detail Author Start: 01-28-2024 End: 01-28-2024 Patient encounter procedure 01/28/2024 10:30 AM EST Office Visit [facility] [address] [place] [address] Jo Ann Diego, DO [address] [place] [address] [facility] Comprehensive metabo lic 2000 panel - Serum or Plasma [facility] MG Breast - bilatera l Screening [facility] Immunizations Immunization Date Immunization Notes Care Provider Fa cility 11-05-2019 influenza virus vaccine, split virus (incl. purified surface antigen) Kirby Bernal Other [facility] Other 11-05-2019 influenza virus vaccine, unspecified formulation [facility] 12-05-2017 influenza virus vaccine, split virus (incl. purified surface antigen) Kirby Bernal Other [facility] Other 12-05-2017 influenza virus vaccine, unspecified formulation [facility] 05-24-2015 pneumococcal conjuga te vaccine, 13 valent Kirby Bernal Other [facility] 11-05-2012 tetanus and diphther ia toxoids, adsorbed, preservative free, for adult use (5 Lf of tetanus toxoid and 2 Lf of diphtheria toxoid) Kirby Bernal Other [facility] 05-09-2011 pneumococcal polysaccharide vaccine, 23 valent Kirby Bernal Other [facility] Payers Date Payer Category Payer Medicare (Managed Care) [place] [place] [employer] [id number] 1958 Medicare [id number] 1940 Unknown [id number]. 2.593 1940 Unknown [id number] [id number]. 2.593 1940 Unknown [id number] [id number]. 2.727 1940 Unknown [id number] [id number]. 2.1259 1940 Unknown [id number] [id number]. 2.1259 1940 Unknown [id number] 2.16.840.1.260147.3.579. 2.1259 1940 Unknown [id number] 2.16.840.1.086816.3.579. 2.1259 1940 Unknown [id number] 2.16.840.1.505669.3.579. 2.1259 1940 Unknown [id number] 2.16.840.1.766304.3.579. 2.1259 1940 Unknown [id number] [id number]. 2.1259 Medicare [place] [employer] PFFS OP [id number] Social History Date Type Detail Facility Start: 08-21-2022 End: 10-05-2022 Tobacco smoking status Never smoked tobacco (finding) [facility] Tobacco smoking status Never [facility] [place] Start: 10-07-2023 Sex Assigned At Female [facility] Start: 10-05-2022 Tobacco use and exposure Smokeless tobacco non-user [facility] Start: 10-07-2023 History of Social function [facility] Start: 1940 Sex assigned at Not on file [facility] Start: 1940 Sex Assigned At Female [facility] NEGATED: Highlighted rowStart: NINF History of tobacco use Passive smoker [facility] Functional Status Date Assessment Result Facility 08-21-2022 Functional Status N/A [facility] Clinical Notes 08-21-2022 to 12-17-2023 Jo Ann Diego DO - 12/17/2023 2:45 PM EDTJo Ann Diego DO - 12/17/2023 2:45 PM EDT Note Date & Type Note Facility 12-17-2023 Note Right Eye Quality was good. Scan locations included subfoveal. Progression has been stable. Findings include abnormal foveal contour. Left Eye Quality was good. Scan locations included subfoveal. Progression has been stable. Findings include abnormal foveal contour. Notes Retinal pigment epithelium (RPE) changes c/w drusen [facility] 12-17-2023 History of Presen t illness Narrative Images from the original note were not included. Assessment/Plan Images from the original note were not included. Assessment/Plan Diagnoses and all orders for this visit: Exudative age-related macular degeneration of right eye with active choroidal neovascularization (CMS/HCC) - ARMD OU, dry. Importance of smoking cessation, blood pressure control, and healthy diet were emphasized. Patient was advised to consider ultraviolet-B blocking sunglasses. In accordance with the AREDS study, appropriate antioxidant and mineral supplements were prescribed. Patient was instructed to self monitor their monocular vision (reading/Amsler Grid) at least weekly. Patient should immediately report any new onset of decreased vision or metamorphopsia. - Pt looks quiet today. Stable. No treatment today. Will cont to observe. Age-related nuclear cataract of both eyes - Cataract, OU: Observe for now without intervention. The patient was advised to contact us if any change or worsening of vision Keratoconjunctivitis sicca of both eyes not specified as Sjogren's - Keratoconjunctivitis sicca OU -- Environmental changes to minimize dryness and exposure and the use of artificial tears were recommended. Restart Cyclosporin both eyes (OU) BID and increase usage of artificial tears. documented in this encounter [facility] 12-07-2022 Evaluation note Encounter Date Diagnosis Assessment Notes Dec, Acute cystitis without hematuria (ICD-10 - N30.00) [facility] Other 09-05-2023 Evaluation note* Encounter Date Diagnosis Assessment Notes Treatment Notes Treatment Clinical Notes Nov, Medicare annual wellness visit, subsequent (ICD-10 - Z00.00) Personalized health advice was given to the beneficiary including a written plan for screenings discussed and provided. Advanced care planning reviewed and/or information given as requested. Additional counseling was provided here today in regards to, [ ]. The above visit was performed by [ ], under direct supervision of [ ]. Document reviewed and amended by provider signed below. Nov, Primary hypertension (ICD-10 - I10) This patient is instructed to consume a healthy, low-fat, low-salt diet. They are also encouraged to continue exercise to achieve/maintain a normal BMI. Nov, GERD (gastroesophageal reflux disease) (ICD-10 - K21.9) Diet instructions: Smaller portions, avoid eating and laying flat, avoid eating or drinking prior to bedtime. Weight loss. Nov, Hyperlipidemia type II (ICD-10 - E78.01) Instructed on diet and exercise with continued statin therapy.Discussed the beneficial effects of lowering cholesterol in reducing the risk for cerebrovchascular and cardiovascular disease. Nov, Irritable bowel syndrome with both constipation and diarrhea (ICD-10 - K58.2) Nov, IFG (impaired fasting glucose) (ICD-10 - R73.01) Healthy diet, exercise and weight loss A1C yearly Nov, Screening mammogram for breast cancer (ICD-10 - Z12.31) Hx of breast cancer 10 years ago. Instructed patient on monthly SBE and yearly mammograms. Nov, Menopause (ICD-10 - Z78.0) Healthy diet, exercise Ca and Vit D supplements Nov, High risk medication use (ICD-10 - Z79.899) Nov, Polyuria (ICD-10 - R35.89) Push fluids, check UA Nov, Fatigue, unspecified type (ICD-10 - R53.83) Check labs: TSH and H/H [facility] Other 06-20-2023 NoteChief Complaint consultation for bowel changes HPI Staff 82 year old female presents on consultation from Dr. Bernal for change in bowel habits. Reports one year history of alternating loose stools and constipation. Reports occasional crampy abdominal pain with fecal urgency and rare incontinence. Denies rectal pain or bleeding. Denies nausea or vomiting. No unexplained weight loss. PCP recommended daily Metamucil for which patient does not regularly. Last colonoscopy completed 06/2013 with diverticulosis and internal hemorrhoids. No known family history of colon cancer. History of Present Illness 82 yo female with h/o htn, hyperlipidemia, Rheumatoid arthritis, GERD, IBS, referred for change in bowel habits; patient reports 1 year h/o intermittent loose stools, worsening over the past several months; no blood or mucous; at times worse with dairy products; has tried to take more fiber, but is inconsistent; no abd pain, no N/V; no wt loss; no abd operations; last colonoscopy 2013 with diverticulosis; no asa or NSAID use, no SBE prophylaxis, no fmhx of GI malignancy or IBD; no tobacco use. Review of Systems PHQ Score Initial Depression Screen Score: 0 ROS - Provider Constitutional: no fever, no sweats, no weight loss. Eyes: no glasses, no blurred vision, no visual loss. ENMT: no dentures, no hoarseness, no swallowing difficulties, no hearing loss, no ear infection(s),no nose bleeds. Cardiovascular: normal blood pressure, no chest pain, regular heartbeat, no heart murmur. Respiratory: no shortness of breath, no cough, no asthma, no wheezing. Gastrointestinal: no nausea, no vomiting, yes diarrhea, no constipation, no blood in stool, yes change in bowel habits, no abdominal pain, no hepatitis. Genitourinary: no kidney stones, no urine infection, no dysuria. Musculoskeletal: no pain, no weakness. Skin: no changing moles, no rash, no skin lumps. Neurologic: no seizures, no epilepsy, no headache. Psychiatric: no emotional or psychiatric problem. Heme/Lymph: no bleeding problems, no anemia, no blood clots, no transfusions. Allergy/Immunologic: no swollen lymph nodes/glands, no IV drug abuse. Other: Additional ROS info: Except as noted in the above Review of Systems and in the History of Present Illness, all other systems have been reviewed and are negative or noncontributory. Physical Exam Vitals & Measurements HR: 72(Peripheral) RR: 16 BP: 118/86 HT: 62 in HT: 158.7 cm WT: 67.4 kg WT: 148.28 lb BMI: 26.76 HEENT: normal conjunctiva, sclera clear, no scleral icterus, EOM intact, PERRLA, oral mucosa moist without lesions. Neck: trachea midline, no mass, symmetric, no thyromegaly or nodules, no adenopathy Respiratory: lungs CTA, respirations non labored. Cardiovascular: regular rate and rhythm, no murmur, no pedal edema or varicosities. Gastrointestinal: soft, non distended, no tenderness, no masses, no palpable hernias, diastasis recti no, no hepatosplenomegaly; normal bs; abd bruit Lymphatic: no cervical adenopathy, no axillary adenopathy, no inguinal adenopathy. Musculoskeletal: normal gait, digits and nails without infection, nodes, cyanosis, clubbing. Skin: no rashes, no lesions, no ulcers, no subcutaneous nodules, induration. Psychiatric/Neuro: oriented to time, place, person, judgement normal, affect appropriate for age, insight intact, no focal deficits. Tests: review of old records completed, Discussed surgical options, risks, and possible complications with patient. Assessment/Plan 1. Change in bowel habits (R19.4: Change in bowel habit) plan colonoscopy under anesthesia for further evaluation, informed consent obtained. 2. Frequent loose stools (R19.7: Diarrhea, unspecified) see # 1 Follow-up No qualifying data available Problem List/Past Medical History Ongoing BMI 26.0-26.9,adult Cervical spondylosis Change in bowel habits Diverticulosis Fecal urgency Frequent loose stools GERD (gastroesophageal reflux disease) History of breast cancer HTN (hypertension) Hyperlipidemia IBS (irritable bowel syndrome) IFG (impaired fasting glucose) Internal hemorrhoids Osteopenia Overweight Rheumatoid arthritis Seasonal allergic rhinitis Historical No qualifying data Procedure/Surgical History Colonoscopy (06/12/2013), Lumpectomy of breast (2012), Right hemithyroidectomy. Medications atorvastatin 40 mg Tab, 40 mg= 1 tab(s), Oral, Daily hydrochlorothiazide-lisinopril 12.5 mg-20 mg Tab, 1 tab(s), Oral, Daily Metoprolol tartrate 25 mg Tab, 25 mg= 1 tab(s), Oral, BID Allergies sulfa drugs (Urticaria) Social History Alcohol Current, Wine, 1-2 times per week, 08/21/2022 Substance Abuse - Denies Substance Abuse, 08/21/2022 Tobacco Never (less than 100 in lifetime) Tobacco Use:. Never Smokeless Tobacco Use:., 08/21/2022 Family History Hypertension: Mother. Ovarian cancer: Mother. Primary malignant neoplasm of female breast: Sister.[facility] Comment on above:Result Comment: Electronically Signed By: MAKENZIE PONCE, Pj Rahman\Date and Time Signed: 08/21/22 14:16 EDTEvaluation + Plan note No data available for this section [facility] Evaluation noteNo [employer] Other Evaluation note* Diagnosis Exudative age-related macular degeneration of right eye with active choroidal neovascularization (CMS/HCC)- Primary Age-related nuclear cataract of both eyes Keratoconjunctivitis sicca of both eyes not specified as Sjogren's [facility] Diagnosis Onset Date Resolution Status Cervical spondylosis acute H/O malignant neoplasm of breast acute Hypercholesterolemia acute Hypertension acute IBS (irritable bowel syndrome) acute Medicare annual wellness visit, subsequent acute Rheumatoid arthritis acute Screening mammogram for breast cancer acute [facility] Work Phone: History general Narrative - Reported* Type Description Date Medical History Osteopenia of neck of left femur Medical History Osteopenia of neck of right femu r Medical History GERD (gastroesophageal reflux di sease) Medical History IFG (impaired fasting glucose) Medical History Essential hypertension Medical History History of breast cancer Medical History Hyperlipidemia type II Medical History Intermittent palpitations Medical History Seasonal allergic rhinitis due t o pollen Medical History Cervical spondylosis without mye lopathy Medical History Irritable bowel synd gem with both constipation and diarrhea Surgical History LUMPECTOMY W/ SENTINAL NODE DIS ECTION 2012 Surgical History RIGHT HEMITHYROIDECTOMY 2013 Surgical History COLONOSCOPY 2013 Surgical History Colonoscopy 09/2022 Hospitalization History SEE SURGICAL HX [facility] Other Hospital Discharge instructions No data available for this section [facility] [place] Progress note No data available for this section [facility] [place] Summary Purpose Family History Relationship Condition Age at Onset Recorded Date/T bianca family member Malignant neoplasm of ovary Unknown mother Unknown Hypertension Unknown Advance Directives Advance Directive Response Recorded Date/ Time Advance Directives No December 27, 2023 9:24am Chief Complaint and Reason for Visit Chief Complaint Amb Documentation CC Adult Risk Stratification Wellness Reason for Visit Cervical spondylosis H/O malignant neoplasm of breast Hypercholesterolemia Hypertension IBS (irritable bowel syndrome) Medicare annual wellness visit, subsequent Rheumatoid arthritis Screening mammogram for breast cancer Additional Source Comments INFORMATION SOURCE (unrecogn ized section and content) DATE CREATED AUTHOR 04/11/2020 [facility] DATE CREATED AUTHOR AUTHOR'S ORGANIZ ATION 10/25/2021 [facility] DATE CREATED AUTHOR AUTHOR'S ORGANIZ ATION 09/21/2022 [facility] DATE CREATED AUTHOR AUTHOR'S ORGANIZ ATION 12/19/2023 [facility] EPIC Patient Care team informatio n (unrecognized section and content) Senior Financial Analyst Relationship Specialty Start Date End Date Kirby Bernal MD [address] [place] [address] PCP - General Internal Medicine 08/28/23 Senior Financial Analyst Relationship Specialty Start Date End Date Kirby Bernal MD [address] [facility] [place] [address] PCP - General Internal Medicine 08/28/23 Team Status: Active Member Role Status Dates iKrby Bernal DO Primary Care Provider Active Team Status: Active Member Role Status Dates Kirby Bernal DO Primary Care Provider Active Start: October 16, 2023 Ria Martinez LPN Attending Provider Active St art: October 16, 2023 Team Status: Active Member Role Status Dates Kirby Bernal DO Primary Care Provide r, Attending Provider Active Start: December 26, 2023 Team Status: Inactive Member Role Status Dates Kirby Bernal DO Primary Care Provide r, Attending Provider Active Start: December 27, 2023 End: December 27, 2023 REASON FOR VISIT (unrecogniz ed section and content) Reason Comments Retinal Injection Follow-up Macular Degeneration Goals (unrecognized section and content) Goals may be documented in a n alternate section FOR RECORDS PERTAINING TO PATIENTS WHO ARE OR HAVE BEEN ENROLLED IN A CHEMICAL DEPENDENCY/SUBSTANCEABUSE PROGRAM, SOME INFORMATION MAY BE OMITTED. This clinical summary was aggregated from multiple sources. Caution should be exercised in using it in the provision of clinical care. This summary normalizes information from multiple sources, and as a consequence, information in this document may materially change the coding, format and clinical context of patient data. In addition, data may be omitted in some cases. CLINICAL DECISIONS SHOULD BE BASED ON THE PRIMARY CLINICAL RECORDS. [employer] [facility]. provides no warranty or guarantee of the accuracy or completeness of information in this document.
[2024-01-09 09:21] LABS: Basophils Percent Auto 0.5 % (0.2-2.0); Eosinophils Absolute Auto 0.1 10^3/uL (0.0-0.7); Eosinophils Percent Auto 1.4 % (0.9-7.0); Hematocrit 39.9 % (36.0-48.0); Hemoglobin 13.2 g/dL (12.0-16.0); Immature Granulocytes Abs Auto 0.01 10^3/uL (0.00-0.03); Immature Granulocytes Pct Auto 0.2 % (0.0-0.5); Lymphocytes Absolute Auto 1.9 10^3/uL (1.2-3.8); Lymphocytes Percent Auto 32.8 % (20.5-60.0); Mean Corpuscular HGB Conc 33.1 g/dL (29.9-35.2); Mean Corpuscular Volume 87.7 fL (81.0-99.0); Monocytes Absolute Auto 0.6 10^3/uL (0.3-0.8); Monocytes Percent Auto 9.5 % (1.7-12.0); Neutrophils Absolute Auto 3.2 10^3/uL (1.4-6.5); Neutrophils Percent Auto 55.6 % (43.0-75.0); Platelet Count 221 10^3/uL (150-450); Red Blood Count 4.55 10^6/uL (4.20-5.40); Red Cell Distribution Width 14.5 % (11.0-15.0); White Blood Count 5.8 10^3/uL (4.0-11.0)
[2024-01-09 10:23] LABS: Alanine Aminotransferase 20 U/L (14-59); Albumin Globulin Ratio 0.7; Albumin Level 3.3 g/dL (3.4-5.0); Alkaline Phosphatase 80 U/L (46-116); Anion Gap 12.2; Aspartate Amino Transferase 21 U/L (15-37); BUN Creatinine Ratio 18.8; Bilirubin Total 0.7 mg/dL (0.2-1.0); Calcium 9.1 mg/dL (8.5-10.1); Carbon Dioxide 27.3 mmol/L (21.0-32.0); Chloride 101 mmol/L (98-107); Chol HDL Ratio 3.2; Cholesterol 209 mg/dL (<=200); Estimated GFR (African America >60 (>=60 mL/min/1.73m^2); Estimated GFR (Non-African Ame >60 (>=60 mL/min/1.73m^2); Globulin 4.6 g/dL; Glucose 109 mg/dL (74-106); HDL Cholesterol 66 mg/dL (40-60); Potassium 3.5 mmol/L (3.5-5.1); Sodium 137 mmol/L (136-145); Thyroid Stimulating Hormone 3.528 uIU/mL (0.358-3.740); Total Protein 7.9 g/dL (6.4-8.2); Triglycerides 84 mg/dL (<=150); VLDL CHOLESTEROL 16.8 mg/dL
[2024-01-09 11:17] LABS: Bilirubin Urine NEGATIVE (NEGATIVE); Blood Urine NEGATIVE (NEGATIVE); Clarity Urine CLEAR (CLEAR); Color Urine LT. YELLOW (YELLOW); Glucose Urine UA NEGATIVE (NEGATIVE); Ketones Urine NEGATIVE (NEGATIVE); Leukocyte Esterase Urine SMALL (NEGATIVE); Nitrite Urine NEGATIVE (NEGATIVE); Protein Urine NEGATIVE (NEG/TRACE); Urobilinogen Urine 0.2 EU/dL (0.2-1.0)
[2024-01-09 11:29] LABS: Bacteria Urine SMALL #/HPF (NONE SEEN); Cast Seen? NONE SEEN #/LPF (NONE SEEN); Crystals Seen? None Seen #/HPF (None Seen); Mucus Urine NONE SEEN (NONE SEEN); RBC Urine 0-2 #/HPF (0-2); Squamous Epithelial Cell Urine MODERATE #/LPF (NONE/RARE)
== END 2024-01-09 09:00 | disposition home or self-care (01) ==
LOC: LAB 08:59
PROVIDERS: PCP Internal Medicine; Visit Provider Internal Medicine
DX: Z12.31 Encounter for screening mammogram for malignant neoplasm of breast (principal); Z85.3 Personal history of malignant neoplasm of breast; E78.00 Pure hypercholesterolemia, unspecified; I10 Essential (primary) hypertension; M06.9 Rheumatoid arthritis, unspecified; R30.0 Dysuria; R53.83 Other fatigue; Z80.3 Family history of malignant neoplasm of breast; Z80.41 Family history of malignant neoplasm of ovary
CPT/HCPCS: 36415; 77063; 77067; 80053; 80061; 81001; 84443; 85025; 87086

== ENCOUNTER 2024-12-04 09:01 | Outpatient (OUT) | payer MEDICARE, SELFPAY ==
--- OUTSIDE RECORDS SUMMARY | 2024-12-04 09:08 | XMS_ITS | CCD ---
Author Organization [facility] [employer] Care Team Providers Care Auto Technician Name Role Phone DR JOSE YOUSIF Consulting Unavailable ZORAN, DR VERDIN Admitting Unavailable ZORAN, DR VERDIN Attending Unavailable ZORAN, DR VERDIN Primary Care Unavailable ZORAN, DR VERDIN Primary Care Unavailable ZORAN, DR VERDIN Admitting Unavailable ZORAN, DR VERDIN Attending Unavailable ZORAN, DR VERDIN Consulting Unavailable SHONDA, DR JOSE Xavier Consulting Unavailable KIRBY BERNAL Primary Care Physician Pj BANEGAS Attending Unavailable Kirby Bernal Unavailable Kirby Bernal MD Primary Care Provider Kirby Bernal MD Primary Care Provider Kirby Bernal DO Primary Care Provider JO ANN DIEGO Attending Unavailable JO ANN DIEGO Attending Unavailable JO ANN DIEGO Attending Unavailable JO ANN DIEGO Attending Unavailable JO ANN DIEGO Attending Unavailable JO ANN DIEGO Attending Unavailable JO ANN DIEGO Attending Unavailable JO ANN DIEGO Attending Unavailable JO ANN DIEGO Attending Unavailable JO ANN DIEGO Attending Unavailable JO ANN DIEGO Attending Unavailable JO ANN DIEGO Attending Unavailable Kirby Bernal DO Primary Care Provider [phone] Kirby Bernal DO Attending Provider [phone] Allergies Allergy Classification Reported Allergen(s) Allergy Type Date of Onset Reaction(s) Facility (1 source) Sulfonamides (Antibiotic) Drug allergy (disorder) 3 [facility] (2 sources) Sulfonamides (Antibiotic); Translations: [sulfa drugs] Drug allergy 3 Urticaria (disorder) [facility] [place] (20 sources) Sulfonamides (Antibiotic) Drug Allergy 3 Hives, Rash [facility] Work Phone: Medications Current Medications Medication Drug Class(es) Dates Sig (Normalized) Sig (Original) ciprofloxacin 250 mg oral tablet (20 sources) Quinolone Antimicrobial Start: ciprofloxacin (Cipro) 250 MG tablet 12/08/2022 Active cycloSPORINE 0.5 mg/ml ophthalmic suspension (12 sources) Calcineurin Inhibitor Immunosuppressant Start: 025 End: take 1 drop(s) into the eye(s) in the morning cycloSPORINE (Restasis) 0.05 % ophthalmic emulsion Indications: Keratoconjunctivitis sicca of both eyes not specified as Sjogren's Administer 1 drop into both eyes in the morning and 1 drop before bedtime. 180 mL 3 04/15/2024 07/14/2024 Active hydroCHLOROthiazide 12.5 mg / lisinopril 20 mg oral tablet (20 sources) Thiazide Diuretic, Angiotensin Converting Enzyme Inhibitor Start: 024 End: take 1 tablet by mouth once daily Lisinopril-Hydrochloro thiazide 20-12.5 mg tablet Active 0 .ROUTE .COMPLEX 90 October 09, 2024 7:43am Take 1 tablet by mouth once daily Complies with drug therapy Start: 10-16-2023 End: 10-16-2023 take 1 tablet by mouth once daily Lisinopril-Hydrochlorothiazide 20-12.5 m g tablet Discontinued 1 TAB PO Daily October 16, 2023 12:00am October 16, 2023 1:31pm Start: 08-13-2022 take 1 tablet by jigna th once daily hydrochlorothiazide-lisinopril 12.5 mg-2 0 mg Tab 1 tab(s), Oral, Daily, Refill(s) 0 Start Date: 08/13/22 Status: Ordered Start: 08-13-2022 lisinopril-hyd roCHLOROthiazide 20-12.5 MG tablet Take by mouth. 08/13/2022 Active metoprolol tartrate 25 mg oral tablet (20 sources) beta-Adrenergic Huy Start: 04-15-2024 take 1 tablet by mouth twice daily Metoprolol Tartrate 25 mg tablet Active 0 .ROUTE .COMPLEX 180 April 15, 2024 7:51am Take 1 tablet by mouth twice daily Complies with drug therapy Start: 08-13-2022 End: 04-15-2024 take 1 tablet by mouth twice daily Metoprolol Tartrate 25 mg tablet Discontinued 25 MG PO Twice daily October 16, 2023 12:00am April 15, 2024 7:51am nitrofurantoin, macrocrystals 25 mg / nitrofurantoin, monohydrate 75 mg oral capsule (1 source) Nitrofuran Antibacterial Start: 11-11-2024 take 1 capsule by mouth every twelve hours at mealtime Nitrofurantoin Monohyd/M-Cryst 100 mg capsule Active 100 MG PO Every 12 hours 10 November 11, 2024 12:00am must administer with a meal/food Complies with drug therapy Prednisolon-Moxiflox -Bromfenac 1-0.5-0.075 % solution (16 sources) Start: 04-15-2024 Prednisolon-Moxiflo x-Bromfenac 1-0.5-0.075 % solution Indications: Age-related nuclear cataract of both eyes Administer 1 drop into affected eye(s) in the morning and 1 drop at noon and 1 drop in the evening and 1 drop before bedtime. 10 mL 1 04/15/2024 Active Completed/Discontinued Medications Medication Drug Class(es) Dates Sig (Normalized) Sig (Original) atorvastatin 40 mg oral tablet (20 sources) HMG-CoA Reductase Inhibitor Start: 08-01-2022 End: 12-27-2023 take 1 tablet by mouth once daily Atorvastatin 40 mg tablet Discontinued 40 MG PO Daily October 16, 2023 12:00am December 27, 2023 10:28am Bevacizumab solution prefilled syringe 1.25 mg (10 sources) Start: 10-21-2024 End: 10-21-2024 Bevacizumab solution prefilled syringe 1.25 mg Start: 10-21-2024 End: 10-21-2024 1.25 mg, Intravitreal, Once PRN Procedure, Starting on Sat10/21/24 at 1022, For 1 dose Start: 07-14-2024 End: 07-14-2024 Bevacizumab solution prefill ed syringe 1.25 mg Start: 07-14-2024 End: 07-14-2024 1.25 mg, Intravitreal, Once PRN Procedure, Starting on Sat07/14/24 at 0958, For 1 dose Start: 05-13-2024 End: 05-13-2024 Bevacizumab solution prefill ed syringe 1.25 mg Start: 05-13-2024 End: 05-13-2024 1.25 mg, Intravitreal, Once PRN Procedure, Starting on Sat05/13/24 at 1120, For 1 dose Start: 03-18-2024 End: 03-18-2024 Bevacizumab solution prefill ed syringe 1.25 mg Start: 03-18-2024 End: 03-18-2024 1.25 mg, Intravitreal, Once PRN Procedure, Starting on Sat03/18/24 at 1558, For 1 dose Start: 01-28-2024 End: 01-28-2024 Bevacizumab solution prefill ed syringe 1.25 mg Start: 01-28-2024 End: 01-28-2024 1.25 mg, Intravitreal, Once PRN Procedure, Starting on Sat01/28/24 at 1030, For 1 dose Problems Active Problems Problem Classification Problem Date Documented Date Episodic/Chronic Abdominal pain (6 sources) Pelvic and perineal pain; Translations: [Abdominal pain] Onset: 10-19-19 Episodic Cancer of breast (7 sources) Personal history of malignant neoplasm of breast; Translations: [History of malignant neoplasm of breast] Onset: 10-25-1908-13-2022 Episodic Cardiac dysrhythmias (3 sources) Intermittent palpitations; Translations: [Palpitations] Episodic Cataract (20 sources) Bilateral age-related nuclear cataracts; Translations: [Age-related nuclear cataract, bilateral] Onset: 12-17-19 Resolved : 07-02-1912-17-2023 Chronic Diabetes mellitus without complication (6 sources) Impaired fasting glucose; Translations: [Impaired fasting glycemia] Onset: 10-25-1908-13-2022 Episodic Disorders of lipid metabolism (11 sources) Familial hypercholesterolemia; Translations: [Hyperlipidemia] Onset: 10-25-1908-13-2022 Chronic Diverticulosis and diverticulitis (1 source) Diverticular disease 08-17-2022 Chronic Esophageal disorders (5 sources) Gastroesophageal reflux disease; Translations: [Gastro-esophageal reflux disease without esophagitis] 08-13-2022 Chronic Essential hypertension (17 sources) Essential (primary) hypertension; Translations: [Hypertensive disorder] Onset: 10-21-19 Chronic Genitourinary symptoms and ill-defined conditions (2 sources) Dysuria; Translations: [Dysuria] 12-27-2023 Episodic Hemorrhoids (1 source) Internal hemorrhoids 08-17-2022 Episodic Inflammation; infection of eye (except that caused by tuberculosis or sexually transmitteddisease) (20 sources) Keratoconjunctivitis sicca; Translations: [Keratoconjunctivitis sicca, not specified as Sjogren's, bilateral] Onset: 07-03-1907-03-2023 Chronic Malaise and fatigue (1 source) Other fatigue Episodic Other aftercare (2 sources) Other [place] [facility] (current[facility] drug therapy; Translations: [OTH JAIL CURRENT DRUG THERAPY] Onset: 10-25-19 Episodic Other [...] of right femur] Episodic Other gastrointestinal disorders (8 sources) Irritable bowel syndrome; Translations: [Mixed irritable [...] conditions (not mental disorders or infectious disease) (5 sources) Encounter for screening mammogram for malignant neoplasm of breast; Translations: [Patient encounter status] Episodic Other upper respiratory disease (1 source) Seasonal allergic rhinitis 08-13-2022 Chronic Other upper respiratory disease (3 sources) Allergic rhinitis due to pollen; Translations: [Allergic rhinitis due to pollen] Chronic Other upper respiratory disease (1 source) Nasal congestion; Translations: [Nasal congestion] 11-17-2024 Episodic Residual codes; unclassified (1 source) Family history of malignant neoplasm of breast; Translations: [FAMILY HX MALIG NEOPLASM OF BREAST] Onset: 10-25-19 Episodic Residual codes; unclassified (1 source) Family history of malignant neoplasm of ovary; Translations: [FAM HX MALIGNANT NEOPLASM OVARY] Onset: 10-25-19 Episodic Residual codes; unclassified (1 source) Asymptomatic menopausal state Episodic Retinal detachments; defects; vascular occlusion; and retinopathy (20 sources) Exudative age-related macular degeneration; Translations: [Exudative age-related macular degeneration, right eye, with active choroidal neovascularization] Onset: 08-28-19 23 08-27-2022 Chronic Rheumatoid arthritis and related disease (6 sources) Rheumatoid arthritis; Translations: [Rheumatoid arthritis, unspecified] Onset: 12-03-19 14 08-13-2022 Chronic Spondylosis; intervertebral disc disorders; other back problems (9 sources) Cervical spondylosis; Translations: [Cervical spondylosis without myelopathy] 08-13-2022 Chronic Urinary tract infections (1 source) Acute cystitis without hematuria Episodic Past or Other Problems Problem Classification Problem Date Documented Da te Episodic/Chronic Unclassified (1 source) Polyuria R35.89 Results Test Name Value Interpretation Reference Range Facility Laboratory - Chemistry and C hemistry - challengeOrdered By: Kirby Bernal on 11-11-2024 Bilirubin Ql (U) Negative [facility] Glucose (U) [Mass/Vol] Negative [facility] Ketones Ql (U) Negative [facility] pH (U) 7.0 [pH] [facility] Specific gravity (U) [Rel density] 1.000 [facility] Urobilinogen (U) [Mass/Vol] 0.2 mg/dL [facility] Laboratory - Specimen inform ationOrdered By: Kirby Bernal on 11-11-2024 Appearance (U) clear [facility] Color (U) lightyellow [facility] Laboratory - UrinalysisOrder ed By: Kirby Bernal on 11-11-2024 Leukocyte esterase Test strip Ql (U) + [facility] Nitrite Ql (U) Negative [facility] Protein Ql (U) + [facility] No Panel InformationOrdered By: Kirby Bernal on 11-11-2024 Urine Occult Blood Negative [facility] Intravitreal Injection, Phar macologic Agent - OD - Right Eyeon 10-21-2024 [facility] Radiology Study observation (narrative) [facility] Optical coherence tomography study reporton 10-21-2024 [facility] Radiology Study observation (narrative) [facility] Intravitreal Injection, Phar macologic Agent - OD - Right Eyeon 07-14-2024 [facility] Radiology Study observation (narrative) [facility] Optical coherence tomography study reporton 07-14-2024 [facility] Radiology Study observation (narrative) [facility] Optical coherence tomography study reporton 06-02-2024 [facility] Radiology Study observation (narrative) [facility] US Eye+Orbit - bilateralon 0 06-02-2024 Diagnosis: Cataract both eyes (OU) Testing Indication: Performed for preop measurements in the determination of an intraocular lens (IOL) for both eyes (OU) Test Reliability: Good quality both eyes (OU) Interpretation: Good measurements for intraocular lens (IOL) calculation purposes. Calculation made for both eyes (OU). [facility] Radiology Study observation (narrative) [facility] Intravitreal Injection, Phar macologic Agent - OD - Right Eyeon 05-13-2024 [facility] Radiology Study observation (narrative) [facility] Optical coherence tomography study reporton 05-13-2024 [facility] Radiology Study observation (narrative) [facility] Optical coherence tomography study reporton 04-15-2024 [facility] Radiology Study observation (narrative) [facility] Intravitreal Injection, Phar macologic Agent - OD - Right Eyeon 03-18-2024 [facility] Radiology Study observation (narrative) [facility] Optical coherence tomography study reporton 03-18-2024 [facility] Radiology Study observation (narrative) [facility] Intravitreal Injection, Phar macologic Agent - OD - Right Eyeon 02-14-2024 [facility] Optical coherence tomography study reporton 02-03-2024 [facility] No Panel Informationon 01-27 Radiology Study observation (narrative) [facility] Optical coherence tomography study reporton 12-17-2023 [facility] Radiology Study observation (narrative) [facility] Study observation Right reti na by OCTon 12-17-2023 [facility] Radiology Study observation (narrative) [facility] Outside Colonoscopyon 2022 Outside Colonoscopy [id number] 40#1.00CD:127 Normal [facility] Consent for Procedure/Surger yon 08-22-2022 Consent for Procedure/Surgery [id number] 4#1.00CD:127 Normal [facility] Ambulatory Visit Summaryon 0 08-21-2022 Ambulatory Visit Summary MITCH LUNSFORD :1940 Visit Date:08/21/2022 Ambulatory Visit Instructions Your Diagnosis Change in bowel habits Frequent loose stools Your Care Team Attending Physician - MAKNEZIE PONCE, Pj Xavier Primary Care Physician - [...] Overweight Rheumatoid arthritis Seasonal allergic rhinitis Normal [facility] Ambulatory Visit Summary MITCH LUNSFORD :1940 Visit Date:08/21/2022 Ambulatory Visit Instructions Your [...] Osteopenia Overweight Rheumatoid arthritis Seasonal allergic rhinitis [facility] Physician Referralon 023 Physician Referral [id number] F1#[id number]:127 Normal [facility] CBC AUTO DIFFon 10-20-2021 BASO # 0.0 103/ul Normal 0.0-0.1 [facility] Comment on above: Performed By: #### C BC #### [facility] [address] [address] [address] Zion Baugh Basophils/100 WBC (Bld) 0.6 % Normal 0.2-2.0 [facility] Comment on above: Performed By: #### C BC #### [facility] [address] [address] [address] Zion Baugh EO # 0.1 103/ul Normal 0.0-0.7 [facility] Comment on above: Performed By: #### C BC #### [facility] [address] [place] [address] Dr. Zion Baugh Eosinophils/100 WBC (Bld) 1.1 % Normal 0.9-7.0 [facility] Comment on above: Performed By: #### C BC #### [facility] [address] [address] [address] Zion Baugh Erythrocyte distribution width (RBC) [Ratio] 14.7 % Normal 11.0-15.0 [facility] Comment on above: Performed By: #### C BC #### [facility] [address] [place] [address] Dr. Zion Baugh Hematocrit (Bld) [Volume fraction] 39.9 % Normal 36.0-48.0 [facility] Comment on above: Performed By: #### C BC #### [facility] [address] [address] [address] Zion Baugh Hemoglobin (Bld) [Mass/Vol] 13.1 g/dL Normal 12.0-16.0 [facility] Comment on above: Performed By: #### C BC #### [facility] [address] [place] [address] Dr. Zion Baugh IG # 0.02 10e3/ul Normal 0.00-0.03 [facility] Comment on above: Performed By: #### C BC #### [facility] [address] [place] [address] Dr. Zion Baugh IG % 0.3 % Normal 0.0-0.5 [facility] Comment on above: Performed By: #### C BC #### [facility] [address] [place] [address] Dr. Zion Baugh LYMPH # 1.7 103/ul Normal 1.2-3.8 [facility] Comment on above: Performed By: #### C BC #### [facility] [address] [place] [address] Dr. Zion Baugh Lymphocytes/100 WBC (Bld) 26.1 % Normal 20.5-60.0 [facility] Comment on above: Performed By: #### C BC #### [facility] [address] [place] [address] Dr. Zion Baugh MANUAL DIFF REQ NO Normal [facility] Comment on above: Performed By: #### C BC #### [facility] [address] [place] [address] Dr. Zion Baugh MCH (RBC) [Entitic mass] 28.4 pg Normal 26.7-34.0 [facility] Comment on above: Performed By: #### C BC #### [facility] [address] [place] [address] Dr. Zion Baugh MCHC (RBC) [Mass/Vol] 32.8 g/dL Normal 29.9-35.2 [facility] Comment on above: Performed By: #### C BC #### [facility] [address] [place] [address] Dr. Zion Baugh MCV (RBC) [Entitic vol] 86.4 fL Normal 81.0-99.0 [facility] Comment on above: Performed By: #### C BC #### [facility] [address] [place] [address] Dr. Zion Baugh MONO # 0.6 103/ul Normal 0.3-0.8 [facility] Comment on above: Performed By: #### C BC #### [facility] [address] [place] [address] Dr. Zion Baugh Monocytes/100 WBC (Bld) 8.6 % Normal 1.7-12.0 [facility] Comment on above: Performed By: #### C BC #### [facility] [address] [place] [address] Dr. Zion Baugh NEUT # 4.0 103/ul Normal 1.4-6.5 [facility] Comment on above: Performed By: #### C BC #### [facility] [address] [place] [address] Dr. Zion Baugh Neutrophils/100 WBC (Bld) 63.3 % Normal 43.0-75.0 [facility] Comment on above: Performed By: #### C BC #### [facility] [address] [place] [address] Dr. Zion Baugh Platelet mean volume (Bld) [Entitic vol] 10.5 fL Normal 9.5-13.5 [facility] Comment on above: Performed By: #### C BC #### [facility] [address] [place] [address] Dr. Zion Baugh PLT 235 103/ul Normal 150-450 [facility] Comment on above: Performed By: #### C BC #### [facility] [address] [place] [address] Dr. Zion Baugh RBC 4.62 106/ul Normal 4.20-5.40 [facility] Comment on above: Performed By: #### C BC #### [facility] [address] [place] [address] Dr. Zion Baugh WBC 6.4 103/ul Normal 4.0-11.0 [facility] Comment on above: Performed By: #### C BC #### [facility] [address] [place] [address] Dr. Zion Baugh DIRECT LDLon 10-20-2021 Cholesterol in LDL [Mass/Vol] 88 mg/dL Normal [facility] Comment on above: Performed By: #### B MP, DLDL #### [facility] [address] [address] [address] Zion Baugh DLDL NORMAL SEE BELOW Normal [facility] Comment on above: Result Comment: <100 mg/dl OPTIMAL 100 - 129 mg/dl NEAR OR ABOVE OPTIMAL 130 - 159 mg/dl BORDERLINE HIGH 160 - 189 mg/dl HIGH >190 mg/dl VERY HIGH Performed By: #### B MP, DLDL #### [facility] [address] [address] [address] Zion Baugh GLYCOHEMOGLOBIN A1Con 2021 ADA RECOMMENDATION SEE BELOW Normal [facility] Comment on above: Result Comment: ADA RECOMMENDED LIMIT 4.0 - 6.0 ADA THERAPEUTIC TARGET < 7.0 ACTION SUGGESTED > 7.0 Performed By: #### A 1C #### [facility] [address] [address] [address] Zion Baugh Glucose [Mass/Vol] 114 mg/dL Normal [facility] Comment on above: Performed By: #### A 1C #### [facility] [address] [address] [address] Zion Baugh HbA1c (Bld) [Mass fraction] 5.6 % Normal 4.5-6.2 [facility] Comment on above: Performed By: #### A 1C #### [facility] [address] [place] [address] Dr. Zion Baugh MG MAMM DIAGNOSTIC 3D [place] CA Don 10-20-2021 MG MAMM DIAGNOSTIC 3D [place] CAD Patient: MITCH LUNSFORD Exam Date: 10/20/2021 : 1940 Gender:F Ordering : DR KIRBY BERNAL D.O. Admission #: [id number] Family : Order #: [id number] CLICK HERE TO VIEW EXAM RADIOLOGY REPORT [...] ovarian cancer at age 60. LOCATION: [facility] BREAST COMPOSITION: Scattered areas fibroglandular density. [...] Yousif M.D. on 10/20/2021 at 09:35 Normal [facility] PROF CHEM 8 (BAS METB)on Anion gap [Moles/Vol] 8.5 mmol/L Normal [facility] Comment on above: Performed By: #### B CARLOS, DLDL #### [facility] [address] [address] [address] Zion Baugh Calcium [Mass/Vol] 9.4 mg/dL Normal 8.5-10.1 [facility] Comment on above: Performed By: #### B CARLOS, DLDL #### [facility] [address] [address] [address] Zion Baugh Chloride [Moles/Vol] 98 mmol/L Normal 98-107 [facility] Comment on above: Performed By: #### B CARLOS, DLDL #### [facility] [address] [address] [address] Zion Baugh CO2 [Moles/Vol] 33.1 mmol/L Critically high 21.0-32.0 [facility] Comment on above: Performed By: #### B CARLOS, DLDL #### [facility] [address] [address] [address] Zion Baugh Creatinine [Mass/Vol] 0.75 mg/dL Normal 0.55-1.02 [facility] Comment on above: Performed By: #### B CARLOS DLDL #### [facility] [address] [address] [address] Zion Baugh EGFR-AF [place] >60 Normal >=60 [facility] Comment on above: Performed By: #### B MP, DLDL #### [facility] [address] [address] [address] Zion Baugh EGFR-NON AF [place] 74 mL/min/1.73m2 Normal >=60 [facility] Comment on above: Performed By: #### B MP, DLDL #### [facility] [address] [address] [address] Zion Baugh Glucose [Mass/Vol] 123 mg/dL Critically high 74-106 T [facility] Comment on above: Performed By: #### B MP, DLDL #### [facility] [address] [address] [address] Zion Baugh Potassium [Moles/Vol] 3.6 mmol/L Normal 3.5-5.1 [facility] Comment on above: Performed By: #### B MP, DLDL #### [facility] [address] [address] [address] Zion Baugh Sodium [Moles/Vol] 136 mmol/L Normal 136-145 [facility] Comment on above: Performed By: #### B MP, DLDL #### [facility] [address] [address] [address] Zion Baugh Urea nitrogen [Mass/Vol] 16.0 mg/dL Normal 7.0-18.0 [facility] Comment on above: Performed By: #### B MP, DLDL #### [facility] [address] [address] [address] Zion Baugh Urea nitrogen/Creatinine [Mass ratio] 21.3 mg/mg Normal [facility] Comment on above: Performed By: #### B MP, DLDL #### [facility] [address] [address] [address] Zion Baugh UA RANDOM W/MICROSCOPICon BACTERIA SMALL Abnormal NONE SEEN [facility] Comment on above: Performed By: #### U AMIC #### [facility] [address] [address] [address] Zion Baugh Bilirubin Ql (U) Negative Normal NEGATIVE [facility] Comment on above: Performed By: #### U AMIC #### [facility] [address] [address] [address] Zion Baugh CAST NONE SEEN Normal NONE SEEN [facility] Comment on above: Performed By: #### U AMIC #### [facility] [facility] [address] [address] [address] Zion Baugh Clarity (U) SL CLOUDY Abnormal CLEAR [facility] Comment on above: Performed By: #### U AMIC #### [facility] [address] [address] [address] Zion Baugh Color (U) LT. YELLOW Normal YELLOW [facility] Comment on above: Performed By: #### U AMIC #### [facility] [address] [address] [address] Zion Baugh Crystals LM Nom (Urine sed) NONE SEEN Normal NONE SEEN [facility] Comment on above: Performed By: #### U AMIC #### [facility] [address] [address] [address] Zion Baugh Epithelial cells LM Ql (Urine sed) FEW Abnormal NONE SEEN /RARE [facility] Comment on above: Performed By: #### U AMIC #### [facility] [address] [address] [address] Zion Baugh Glucose Ql (U) Negative Normal NEGATIVE [facility] Comment on above: Performed By: #### U AMIC #### [facility] [address] [address] [address] Zion Baugh Hemoglobin Ql (U) TRACE-INTACT Abnormal NEGATIVE [facility] Comment on above: Performed By: #### U AMIC #### [facility] [address] [address] [address] Zion Baugh Ketones Ql (U) Negative Normal NEGATIVE [facility] Comment on above: Performed By: #### U AMIC #### [facility] [address] [address] [address] Zion Baugh LEUKOCYTES MODERATE Abnormal NEGATIVE [facility] Comment on above: Performed By: #### U AMIC #### [facility] [address] [address] [address] Zion Baugh MUCOUS NONE SEEN Normal NONE SEEN [facility] Comment on above: Performed By: #### U AMIC #### [facility] [address] [address] [address] Zion Baugh Nitrite Ql (U) Negative Normal NEGATIVE [facility] Comment on above: Performed By: #### U AMIC #### [facility] [address] [address] [address] Zion Baugh pH (U) 6.0 [pH] Normal 5-9 [facility] Comment on above: Performed By: #### U AMIC #### [facility] [address] [place] [address] Dr. Zion Baugh RBC NONE SEEN Abnormal 0-2 [facility] Comment on above: Performed By: #### U AMIC #### [facility] [address] [place] [address] Dr. Zion Baugh SPEC GRAVITY 1.015 Normal 1.005-<=1.025 The [facility] Comment on above: Performed By: #### U AMIC #### [facility] [address] [place] [address] Dr. Zion Baugh UA PROTEIN Negative Normal NEGATIVE/ TRACE [facility] Comment on above: Performed By: #### U AMIC #### [facility] [address] [place] [address] Dr. Zion Baugh Urobilinogen Qn (U) 0.2 {Dona'U}/dL Normal 0.2 - 1. 0 [facility] Comment on above: Performed By: #### U AMIC #### [facility] [address] [place] [address] Dr. Zion Baugh WBC 2-5 Abnormal NONE SEEN [facility] Comment on above: Performed By: #### U AMIC #### [facility] [address] [place] [address] Dr. Zion Baugh US PELVISon 10-19-2021 US [...] by: JOSE YOUSIF Date: 2021-10-19 09:40 Normal [facility] CNPTOUTREACHon 04-08-2020 [facility] Patient Outreach (COVAMN) ---- MITCH LUNSFORD ([id number]) 1940 F Date Time Provider [facility] your visit today, we recorded the following information about you: Allergies As of Date: 04/08/2020 Noted Allergy Reaction SULFA (SULFONAMIDE ANTIBIOTICS) 07/01/2012 4 - Hives Date Reviewed: 07/09/2018 Reviewed by: Yeimy Arambula - Fully Assessed Order(s):SARS-COVID VACCINE 1ST DOSE APPT [[id number]] Order #: [id number] FUTURE Prescriptions as of 04/08/2020 Sig: PRESERVISION [...] Status:Closed by EPIC, PRODUSER on 04/11/20 Normal [facility] Vital Signs Date Time Vital Sign Value Performing Clinician Facility 11-17-2024 10:43-0400 Body height 160.02 cm Kirby Ball DO Work Phone: [facility] 11-17-2024 10:43-0400 Body mass index (BMI) [Ratio] 27.6 kg/m2 Kirby Ball DO Work Phone: [facility] 11-17-2024 10:43-0400 Body weight 70.93 kg Kirby Ball DO Work Phone: [facility] 11-17-2024 10:43-0400 Diastolic blood pressure 101 mm[Hg] Kirby Ball DO Work Phone: [facility] 11-17-2024 10:43-0400 Heart rate 75 /min Kirby Ball DO Work Phone: [facility] 11-17-2024 10:43-0400 Respiratory rate 12 /min Kirby Ball DO Work Phone: [facility] 11-17-2024 10:43-0400 Systolic blood pressure 193 mm[Hg] Kirby Ball DO Work Phone: [facility] 12-27-2023 10:130400 Body height 160.02 cm [facility] 12-27-2023 10:13-0400 Body mass index (BMI) [Ratio] 26.7 kg/m2 [facility] 12-27-2023 10:13-0400 Body weight 68.49 kg [facility] 12-27-2023 10:13-0400 Diastolic blood pressure 98 mm[Hg] [facility] 12-27-2023 10:13-0400 Heart rate 81 /min [facility] 12-27-2023 10:13-0400 Respiratory rate 12 /min [facility] 12-27-2023 10:13-0400 Systolic blood pressure 171 mm[Hg] [facility] 11-06-2022 10:00-0400 Body height 158.75 cm Kirby Ball Other [facility] Other 11-06-2022 10:00-0400 Body mass index (BMI) [Ratio] 26.78 kg/m2 Kirby Ball Other [facility] Other 11-06-2022 10:00-0400 Body weight 67.5 kg Kirby Ball Other [facility] Other 11-06-2022 10:00-0400 Diastolic blood pressure 94 mm[Hg] Kirby Ball Other [facility] Other 11-06-2022 10:00-0400 Respiratory rate 12 /min Kirby Ball Other [facility] Other 11-06-2022 10:00-0400 Systolic blood pressure 169 mm[Hg] Kirby Ball Other [facility] Other 08-21-2022 13:32-0400 Blood Pressure Location [facility] [place] [facility] 08-21-2022 13:32-0400 Diastolic blood pressure 86 mm[Hg] P[facility] N[facility] [place] 08-21-2022 13:32-0400 Heart rate 72 /min Pj NILL [facility] [place] 08-21-2022 13:32-0400 Respiratory rate 16 /min Pj NILL [facility] [place] 08-21-2022 13:32-0400 Systolic blood pressure 118 mm[Hg] Pj BANEGAS [facility] [place] Encounters Encounter Date Encounter Type Care Provider Facility Start: 11-17-2024 End: 11-17-2024 ambulatory Kirby Ball DO Work Phone: [facility] Work Phone: Start: 11-17-2024 End: 11-17-2024 Patient encounter procedure Kirby Ball DO -[facility] Work Phone: Start: 11-11-2024 End: 11-11-2024 ambulatory Kirby Ball DO Work Phone: [facility] Work Phone: Start: 11-11-2024 End: 11-11-2024 Patient encounter procedure Kirby Ball DO -[facility] Work Phone: Start: 10-21-2024 End: 10-21-2024 Bamboo flowsheet Jo Ann Diego DO Work Phone: [facility] Start: 10-21-2024 End: 10-21-2024 Bamboo flowsheet Jo Ann Diego DO Work Phone: [facility] Start: 10-21-2024 End: 10-21-2024 ambulatory JO ANN DIEGO Not Available Start: 10-21-2024 End: 10-21-2024 Follow-up encounter Jo Ann Diego DO Work Phone: [facility] Comment on above: Follow-up; Retinal I njection; Macular Degeneration Start: 08-11-2024 End: 08-11-2024 Bamboo flowsheet Jo Ann Diego DO Work Phone: [facility] Start: 08-11-2024 End: 08-11-2024 Bamboo flowsheet Jo Ann Diego DO Work Phone: [facility] Start: 08-11-2024 End: 08-11-2024 ambulatory JO ANN DIEGO Not Available Start: 08-11-2024 End: 08-11-2024 Postop follow up visit related to original px Jo Ann Roxanna Marypatelcuca DO Work Phone: [facility] Comment on above: Pseudophakia (Primar y Dx) Start: 07-14-2024 End: 07-14-2024 Bamboo flowsheet Jo Ann Diego DO Work Phone: [facility] Start: 07-14-2024 End: 07-14-2024 Bamboo flowsheet Jo Ann Veraer DO Work Phone: [facility] Start: 07-14-2024 End: 07-14-2024 Follow-up encounter Jo Ann Diego DO Work Phone: [facility] Comment on above: Follow-up; Retinal I njection; Macular Degeneration Start: 07-14-2024 End: 07-14-2024 ambulatory JO ANN DIEGO Not Available Start: 07-07-2024 End: 07-07-2024 Bamboo flowsheet Jo Ann Diego DO Work Phone: [facility] Start: 07-07-2024 End: 07-07-2024 Bamboo flowsheet Jo Ann Diego DO Work Phone: [facility] Start: 07-07-2024 End: 07-07-2024 Postop follow up visit related to original px Jo Ann Diego DO Work Phone: [facility] Comment on above: Pseudophakia (Primar y Dx) Start: 07-07-2024 End: 07-07-2024 ambulatory JO ANN DIEGO Not Available Start: 07-01-2024 End: 07-01-2024 Bamboo flowsheet Jo Ann Diego DO Work Phone: [facility] Start: 07-01-2024 End: 07-01-2024 Bamboo flowsheet Jo Ann D Zahler DO Work Phone: [facility] Start: 07-01-2024 End: 07-01-2024 Postop follow up visit related to original px Jo Ann D Zahler DO Work Phone: [facility] Comment on above: Pseudophakia (Primar y Dx); Age-related nuclear cataract of left eye Start: 07-01-2024 End: 07-01-2024 ambulatory JO ANN DIEGO Not Available Start: 06-23-2024 End: 06-23-2024 Bamboo flowsheet Jo Ann Roxanna Zahler DO Work Phone: [facility] Start: 06-23-2024 End: 06-23-2024 Bamboo flowsheet Jo Ann Roxanna Zahler DO Work Phone: [facility] Start: 06-23-2024 End: 06-23-2024 ambulatory JO ANN DIEGO Not Available Start: 06-23-2024 End: 06-23-2024 Postop follow up visit related to original px Jo Ann Mcknight Zahler DO Work Phone: [facility] Comment on above: Pseudophakia (Primar y Dx) Start: 06-02-2024 End: 06-02-2024 Bamboo flowsheet Jo Ann Roxanna Zahler DO Work Phone: [facility] Start: 06-02-2024 End: 06-02-2024 Bamboo flowsheet Jo Ann Roxanna Zahler DO Work Phone: [facility] Start: 06-02-2024 End: 06-02-2024 ambulatory JOA NN VERAER Not Available Start: 06-02-2024 End: 06-02-2024 Office outpatient visit 25 minutes Jo Ann Roxanna Hernandezhler DO Work Phone: [facility] Comment on above: Age-related nuclear cataract of both eyes (Primary Dx); Exudative age-related macular degeneration of right eye with active choroidal neovascularization (CMS/HCC) Start: 05-13-2024 End: 05-13-2024 Patient encounter procedure Jo Ann Diego DO Work Phone: [facility] Comment on above: Exudative age-relate d macular degeneration of right eye with active choroidal neovascularization (CMS/HCC) (Primary Dx) Start: 05-13-2024 End: 05-13-2024 ambulatory JO ANN DIEGO Not Available Start: 04-15-2024 End: 04-15-2024 Bamboo flowsheet Jo Ann Diego DO Work Phone: [facility] Start: 04-15-2024 End: 04-15-2024 Bamboo flowsheet Jo Ann Diego DO Work Phone: [facility] Start: 04-15-2024 End: 04-15-2024 ambulatory JO ANN DIEGO Not Available Start: 03-18-2024 End: 03-18-2024 Follow-up encounter Jo Ann Diego DO Work Phone: [facility] Comment on above: Follow-up; Retinal I njection; Macular Degeneration Start: 03-18-2024 End: 03-18-2024 ambulatory JO ANN DIEGO Not Available Start: 03-18-2024 End: 03-18-2024 Bamboo flowsheet Jo Ann Diego DO Work Phone: [facility] Start: 03-18-2024 End: 03-18-2024 Bamboo flowsheet Jo Ann Diego DO Work Phone: [facility] Start: 01-28-2024 End: 01-28-2024 ambulatory JO ANN DIEGO Not Available Start: 01-28-2024 End: 01-28-2024 Patient encounter procedure Jo Ann Diego DO Work Phone: [facility] Comment on above: Age-related nuclear cataract of both eyes (Primary Dx); Exudative age-related macular degeneration of right eye with active choroidal neovascularization (CMS/HCC) Start: 12-27-2023 End: 12-27-2023 ambulatory [facility] Work Phone: Start: 12-27-2023 End: 12-27-2023 [facility] Work Phone: Start: 12-26-2023 Non-patient / Non-visit [facility] Work Phone: Start: 12-24-2023 Patient encounter procedure [facility] Start: 12-17-2023 End: 12-17-2023 ambulatory JO ANN DIEGO Not Available Start: 12-17-2023 End: 12-17-2023 Bamboo flowsheet Jo Ann Diego DO Work Phone: [facility] Start: 12-17-2023 End: 12-17-2023 Bamboo flowsheet Jo Ann Diego DO Work Phone: [facility] Start: 10-16-2023 Non-patient / Non-visit [facility] Work Phone: Start: 12-07-2022 End: 12-07-2022 ambulatory Kirby Bernal Other [employer] Other Start: 12-07-2022 Telephone encounter Kirby Bernal [facility] Start: 12-06-2022 End: 12-06-2022 ambulatory Kirby Bernal Other [employer] Other Start: 12-06-2022 Telephone encounter Kirby Bernal [facility] Start: 11-06-2022 End: 11-06-2022 ambulatory Kirby Bernal Other [employer] Other Start: 11-06-2022 Patient encounter procedure Kirby Bernal [facility] Start: 08-21-2022 End: 08-22-2022 ambulatory Pj BANEGAS Facility: [facility] Start: 08-21-2022 End: 08-21-2022 Patient encounter procedure Pj Xavier MAKENZIE [facility] Start: 08-17-2022 ambulatory Pj MAKENZIE Facility:[facility] Start: 08-13-2022 ambulatory Pj BANEGAS Facility:[facility] Start: 10-20-2021 End: 10-21-[address] KIRBY BERNAL Facility:[facility] Start: 10-18-2021 End: 10-19-[address] JOSE YOUSIF Facility:[facility] Procedures Date Procedure Procedure Detail Performing Clinician Start: 10-21-2024 Intravitreal njx pharmacologic agt spx Jo Ann Diego DO Work Phone: Start: 10-21-2024 Computerized ophthalmic imaging retina Jo Ann Diego DO Work Phone: Start: 07-14-2024 Intravitreal njx pharmacologic agt spx Jo Ann Diego DO Work Phone: Start: 07-14-2024 Computerized ophthalmic imaging retina Jo Ann Diego DO Work Phone: Start: 06-02-2024 End: 06-02-2024 Oph bmtry prtl coher intrfrmtry io lens pwr mathew Jo Ann Diego DO Work Phone: Start: 05-13-2024 Intravitreal njx pharmacologic agt spx Jo Ann Diego DO Work Phone: Start: 05-13-2024 Computerized ophthalmic imaging retina Jo Ann Dieog DO Work Phone: Start: 04-15-2024 Computerized ophthalmic imaging retina Jo Ann Diego DO Work Phone: Start: 04-15-2024 End: 04-15-2024 Oph medical xm&eval comprhnsv estab pt 1/> Keratoconjunctivitis sicca of both eyes not specified as Sjogren's Jo Ann Diego DO Work Phone: Comment on above: Keratoconjunctivitis sicca of both eyes not specified as Sjogren's (Primary Dx); Age-related nuclear cataract of both eyes; Exudative age-related macular degeneration of right eye with active choroidal neovascularization (CMS/HCC) Start: 03-18-2024 Intravitreal njx pharmacologic agt spx Jo Ann Diego DO Work Phone: Start: 03-18-2024 Computerized ophthalmic imaging retina Jo Ann Diego DO Work Phone: Start: 01-28-2024 Computerized ophthalmic imaging retina Jo Ann Diego DO Work Phone: Start: 01-28-2024 Intravitreal njx pharmacologic agt spx Jo Ann Diego DO Work Phone: Start: 12-17-2023 End: 12-17-2023 Computerized ophthalmic imaging retina Jo Ann Digeo DO Work Phone: Start: 12-17-2023 End: 12-17-2023 [facility] medical xm&eval comprhnsv estab pt 1/> Exudative age-related macular degeneration of right eye with active choroidal neovascularization (CMS/HCC) Jo Ann Diego DO Work Phone: Comment on above: Retinal Injection; Follow-up; Macular De generation Start: 06-12-2013 Colonoscopy Pj BANEGAS Start: 03-04-2012 Lumpectomy of breast Pj BANEGAS Excision of right lo be of thyroid gland Pj BANEGAS Plan of Treatment Date Care Activity Detail Author Start: 07-14-2024 End: 07-14-2024 Clinical Support 07/14/2024 9:30 AM EDT Clinical Support [facility] [address] [place] [address] Jo Ann Diego DO [address] [place] [address] Arrived [facility] Comment on above: Arrived Start: 07-07-2024 End: 07-07-2024 Patient encounter procedure [facility] Comment on above: Arrived Start: 07-01-2024 End: 07-01-2024 Patient encounter procedure 07/01/2024 10:15 AM EDT Office Visit [facility] [address] [place] [phone] Jo Ann Diego, DO [address] [place] [address] Arrived [facility] Comment on above: Arrived Start: 06-02-2024 End: 06-02-2024 Patient encounter procedure 06/02/2024 1:15 PM EDT Office Visit [facility] [address] [place] [phone] Jo Ann Diego, DO [address] [place] [address] [facility] Start: 03-18-2024 End: 03-18-2024 Clinical Support 03/18/2024 3:00 PM EST Clinical Support [facility] [address] [place] [phone] Jo Ann Diego, DO [address] [place] [address] Arrived [facility] Comment on above: Arrived Start: 01-28-2024 End: 01-28-2024 Patient encounter procedure 01/28/2024 10:30 AM EST Office Visit [facility] [address] [place] [phone] Jo Ann Diego, DO [address] [place] [address] [facility] Comprehensive metabo lic 1999 panel - Serum or Plasma [facility] MG Breast - bilatera l Screening [facility] Urine culture [facility] US Eye+Orbit - bilateral IOL Bio metry - OU - Both Eyes (CPT 83852) Ophthalmology Routine Age-related nuclear cataract of both eyes Ordered: 04/15/2024 [facility] Work Phone: Comment on above: Ordered: 04/15/2024 [facility] Immunizations Immunization Date Immunization Notes Care Provider Fa cility 11-05-2019 influenza virus vaccine, split virus (incl. purified surface antigen) Kirby Bernal Other [facility] [email or web address] Other 11-05-2019 influenza virus vaccine, unspecified formulation [facility] 12-05-2017 influenza virus vaccine, split virus (incl. purified surface antigen) Kirby Bernal Other [facility] [email or web address] Other 12-05-2017 influenza virus vaccine, unspecified formulation [facility] 05-24-2015 pneumococcal conjuga te vaccine, 13 valent Kirby Bernal Other [facility] 11-05-2012 tetanus and diphther ia toxoids, adsorbed, preservative free, for adult use (5 Lf of tetanus toxoid and 2 Lf of diphtheria toxoid) Kirby Bernal Other [facility] 05-09-2011 pneumococcal polysaccharide vaccine, 23 valent Kirby Bernal Other [facility] Payers Date Payer Category Payer Medicare (Managed Care) [employer] [id number] 1958 Medicare [id number] 1940 Unknown [id number] [id number]. 2.593 1940 Unknown [id number] 2.16.840.1.701648.3.579. 2.593 1940 Unknown [id number] 2.16.840.1.883238.3.579. 2.727 1940 Unknown [id number] 2.16.840.1.890843.3.579. 2.125 1940 Unknown [id number] 2.16.840.1.482475.3.579. 2.125 1940 Unknown [id number] 2.16.840.1.160478.3.579. 2.125 1941 Unknown [id number] 2.16.840.1.800578.3.579. 2.125 1941 Unknown [id number] 2.16.840.1.222958.3.579. 2.125 1941 Unknown [id number] 2.16.840.1.962798.3.579. 2.125 1941 Unknown [id number] 2.16.840.1.052625.3.579. 2.125 1941 Unknown [id number] 2.16.840.1.961288.3.579. 2.125 1941 Unknown [id number] 2.16.840.1.368563.3.579. 2.125 1941 Unknown [id number] 2.16.840.1.461036.3.579. 2.125 1941 Unknown [id number] 2.16.840.1.278336.3.579. 2.125 1940 Unknown [id number] 2.16.840.1.669221.3.579. 2.1259 Medicare Anthem MCR PFFS OP [id number] Social History Date Type Detail Facility Start: 08-21-2022 End: 10-05-2022 Tobacco smoking status Never smoked tobacco (finding) [facility] Tobacco smoking status Never [facility] Start: 10-07-2023 End: 08-11-2024 Sex Assigned At Female [facility] Start: 10-05-2022 Tobacco use and exposure Smokeless tobacco non-user [facility] Start: 10-07-2023 End: 08-11-2024 History of Social function [facility] Start: 1940 Sex assigned at Not on file [facility] Start: 1940 Sex Assigned At Female [facility] Tobacco smoking status NHIS Unknown if ever smoked [facility] Work Phone: Sex Female (finding) [facility] NEGATED: Highlighted rowStart: NINF History of tobacco use Passive smoker [facility] Functional Status Date Assessment Result Facility 08-21-2022 Functional Status N/A [facility] 08-21-2022 to 10-21-2024 Jo Ann Diego, DO - 10/21/2024 9:30 AM EDTJo Ann Diego, DO - 08/11/2024 9:30 AM EDKenney Diego, DO - 07/14/2024 9:30 AM EDKenney Diego, DO - 07/07/2024 8:45 AM EDT Note Date & Type Note Facility 10-21-2024 Note Time Out 10/21/2024. 10:22 AM. Confirmed correct patient, procedure, site, and patient consented. Anesthesia Topical anesthesia was used. Anesthetic medications included Lidocaine 2%, Proparacaine 0.5%. Procedure Preparation included 5% betadine to ocular surface, eyelid speculum. A 30 gauge needle was used. Injection: 1.25 mg Bevacizumab 1.25 MG/0.05ML Route: Intravitreal, Site: Right Eye [facility]: [address]-3, Lot: [id number], Expiration date: 01/19/2025 Post-op Post injection exam found visual acuity of at least counting fingers, no retinal detachment, perfused optic nerve. The patient tolerated the procedure well. There were no complications. The patient received written and verbal post procedure care education. Post injection medications were not given. Notes Intravitreal antiVEGF Treatment: Risks, benefits and alternatives were discussed for Intravitreal injection with the prescribed antiVEGF agent. With intraocular surgery, there is potential for direct retinal damage through retinal or RPE tear, or infection, with subsequent vision loss. Informative Intravitreal pamphlet provided as well as an OMIC consent. Of course, the treatment may fail to accomplish the overall therapeutic objectives, which is to stall or decrease the amount of retinal edema / bleeding, and therefore stall or improve vision loss. Intravitreal Anti-VEGF: Consent was obtained and questions answered. Operative eye was identified, receiving topical proparacaine, 5% betadine, and 2% xylocaine jelly. A lid speculum was placed and the inferotemp. injection site received additional anesthetic with a proparacaine soaked cotton swab. Using calipers (set at 3.5mm for pseudo and 4mm for phakic), the inferotemp. limbus was measured, sclera marked and 2 additional drops of betadine placed. Avoiding any talking to avoid contamination, intravitreal injection was carried out without difficulty. Any residual amount of medication was discarded appropriately. The patient tolerated the procedure well and instructed to call with increased pain, redness, decreased vision or concerns. [facility] 10-21-2024 Note Right Eye Quality was good. Scan locations included subfoveal. Progression has been stable. Findings include abnormal foveal contour, subretinal fluid. Left Eye Quality was good. Scan locations included subfoveal. Progression has been stable. Findings include abnormal foveal contour. [facility] 10-21-2024 History of Presen t illness Narrative Images from the original note were not included. Assessment/Plan Diagnoses and all orders for this visit: Exudative age-related macular degeneration of right eye with active choroidal neovascularization (HCC) - OCT, Retina - OU - Both Eyes - Intravitreal Injection, Pharmacologic Agent - OD - Right Eye - Bevacizumab solution prefilled syringe 1.25 mg OCT, Retina - OU - Both Eyes Right Eye Quality was good. Scan locations included subfoveal. Progression has been stable. Findings include abnormal foveal contour, subretinal fluid. Left Eye Quality was good. Scan locations included subfoveal. Progression has been stable. Findings include abnormal foveal contour. Linked Images Intravitreal Injection, Pharmacologic Agent - OD - Right Eye Time Out 10/21/2024. 10:22 AM. Confirmed correct patient, procedure, site, and patient consented. Anesthesia Topical anesthesia was used. Anesthetic medications included Lidocaine 2%, Proparacaine 0.5%. Procedure Preparation included 5% betadine to ocular surface, eyelid speculum. A 30 gauge needle was used. Injection: 1.25 mg Bevacizumab 1.25 MG/0.05ML Route: Intravitreal, Site: Right Eye [facility]: [address]-6, Lot: [id number], Expiration date: 01/19/2025 Post-op Post injection exam found visual acuity of at least counting fingers, no retinal detachment, perfused optic nerve. The patient tolerated the procedure well. There were no complications. The patient received written and verbal post procedure care education. Post injection medications were not given. Notes Intravitreal antiVEGF Treatment: Risks, benefits and alternatives were discussed for Intravitreal injection with the prescribed antiVEGF agent. With intraocular surgery, there is potential for direct retinal damage through retinal or RPE tear, or infection, with subsequent vision loss. Informative Intravitreal pamphlet provided as well as an OMIC consent. Of course, the treatment may fail to accomplish the overall therapeutic objectives, which is to stall or decrease the amount of retinal edema / bleeding, and therefore stall or improve vision loss. Intravitreal Anti-VEGF: Consent was obtained and questions answered. Operative eye was identified, receiving topical proparacaine, 5% betadine, and 2% xylocaine jelly. A lid speculum was placed and the inferotemp. injection site received additional anesthetic with a proparacaine soaked cotton swab. Using calipers (set at 3.5mm for pseudo and 4mm for phakic), the inferotemp. limbus was measured, sclera marked and 2 additional drops of betadine placed. Avoiding any talking to avoid contamination, intravitreal injection was carried out without difficulty. Any residual amount of medication was discarded appropriately. The patient tolerated the procedure well and instructed to call with increased pain, redness, decreased vision or concerns. documented in this encounter [facility] 08-11-2024 History of Presen t illness Narrative Images from the original note were not included. Assessment/Plan Diagnoses and all orders for this visit: Pseudophakia - s/p CE OS (1mth): Patient should be close to off all post-op meds. Pt. received final refraction for this eye today. documented in this encounter [facility] 07-14-2024 Note Time Out 07/14/2024. 9:58 AM. Confirmed correct patient, procedure, site, and patient consented. Anesthesia Topical anesthesia was used. Anesthetic medications included Lidocaine 2%, Proparacaine 0.5%. Procedure Preparation included 5% betadine to ocular surface, eyelid speculum. A 30 gauge needle was used. Injection: 1.25 mg Bevacizumab 1.25 MG/0.05ML Route: Intravitreal, Site: Right Eye [facility]: [address]-5, Lot: [id number], Expiration date: 01/19/2025 Post-op Post injection exam found visual acuity of at least counting fingers, no retinal detachment, perfused optic nerve. The patient tolerated the procedure well. There were no complications. The patient received written and verbal post procedure care education. Post injection medications were not given. Notes Intravitreal antiVEGF Treatment: Risks, benefits and alternatives were discussed for Intravitreal injection with the prescribed antiVEGF agent. With intraocular surgery, there is potential for direct retinal damage through retinal or RPE tear, or infection, with subsequent vision loss. Informative Intravitreal pamphlet provided as well as an OMIC consent. Of course, the treatment may fail to accomplish the overall therapeutic objectives, which is to stall or decrease the amount of retinal edema / bleeding, and therefore stall or improve vision loss. Intravitreal Anti-VEGF: Consent was obtained and questions answered. Operative eye was identified, receiving topical proparacaine, 5% betadine, and 2% xylocaine jelly. A lid speculum was placed and the inferotemp. injection site received additional anesthetic with a proparacaine soaked cotton swab. Using calipers (set at 3.5mm for pseudo and 4mm for phakic), the inferotemp. limbus was measured, sclera marked and 2 additional drops of betadine placed. Avoiding any talking to avoid contamination, intravitreal injection was carried out without difficulty. Any residual amount of medication was discarded appropriately. The patient tolerated the procedure well and instructed to call with increased pain, redness, decreased vision or concerns. [facility] 07-14-2024 Note Right Eye Quality was good. Scan locations included subfoveal. Progression has been stable. Findings include pigment epithelial detachment. Left Eye Quality was good. Scan locations included subfoveal. Progression has been stable. Findings include normal observations. Notes Good scan with normal appearance [facility] 07-14-2024 History of Presen t illness Narrative Images from the original note were not included. Assessment/Plan Diagnoses and all orders for this visit: Exudative age-related macular degeneration of right eye with active choroidal neovascularization (CMS/HCC) - OCT, Retina - OU - Both Eyes - Intravitreal Injection, Pharmacologic Agent - OD - Right Eye - Bevacizumab solution prefilled syringe 1.25 mg OCT, Retina - OU - Both Eyes Right Eye Quality was good. Scan locations included subfoveal. Progression has been stable. Findings include pigment epithelial detachment. Left Eye Quality was good. Scan locations included subfoveal. Progression has been stable. Findings include normal observations. Notes Good scan with normal appearance Linked Images Intravitreal Injection, Pharmacologic Agent - OD - Right Eye Time Out 07/14/2024. 9:58 AM. Confirmed correct patient, procedure, site, and patient consented. Anesthesia Topical anesthesia was used. Anesthetic medications included Lidocaine 2%, Proparacaine 0.5%. Procedure Preparation included 5% betadine to ocular surface, eyelid speculum. A 30 gauge needle was used. Injection: 1.25 mg Bevacizumab 1.25 MG/0.05ML Route: Intravitreal, Site: Right Eye [facility]: [address]-8, Lot: [id number], Expiration date: 01/19/2025 Post-op Post injection exam found visual acuity of at least counting fingers, no retinal detachment, perfused optic nerve. The patient tolerated the procedure well. There were no complications. The patient received written and verbal post procedure care education. Post injection medications were not given. Notes Intravitreal antiVEGF Treatment: Risks, benefits and alternatives were discussed for Intravitreal injection with the prescribed antiVEGF agent. With intraocular surgery, there is potential for direct retinal damage through retinal or RPE tear, or infection, with subsequent vision loss. Informative Intravitreal pamphlet provided as well as an OMIC consent. Of course, the treatment may fail to accomplish the overall therapeutic objectives, which is to stall or decrease the amount of retinal edema / bleeding, and therefore stall or improve vision loss. Intravitreal Anti-VEGF: Consent was obtained and questions answered. Operative eye was identified, receiving topical proparacaine, 5% betadine, and 2% xylocaine jelly. A lid speculum was placed and the inferotemp. injection site received additional anesthetic with a proparacaine soaked cotton swab. Using calipers (set at 3.5mm for pseudo and 4mm for phakic), the inferotemp. limbus was measured, sclera marked and 2 additional drops of betadine placed. Avoiding any talking to avoid contamination, intravitreal injection was carried out without difficulty. Any residual amount of medication was discarded appropriately. The patient tolerated the procedure well and instructed to call with increased pain, redness, decreased vision or concerns. documented in this encounter [facility] 07-07-2024 History of Presen t illness Narrative Images from the original note were not included. Assessment/Plan Diagnoses and all orders for this visit: Pseudophakia - s/p CE OS (POD #1): Patient provided with post-op form. Instructed to continue drops as well as shield. Instructed to call immediately with increased pain, redness, decreased vision, questions or concerns. documented in this encounter [facility] 07-01-2024 History of Presen t illness Narrative Images from the original note were not included. Assessment/Plan Diagnoses and all orders for this visit: Pseudophakia - s/p CE OD (POD #7): Patient provided with post-op form. Instructed to continue drops. Discontinue eye shield. Instructed to call immediately with increased pain, redness, decreased vision, questions or concerns. Age-related nuclear cataract of left eye - Visually Significant Cataract, OS: I discussed the risks, benefits, alternatives, and expectations of cataract surgery. A complete ophthalmic exam was performed and it was determined that the cataracts were a primary source of vision decline, affecting activities of daily living, necessitating removal. Limited vision post-surgery may occur with pre-existing conditions affecting other areas of the eye or the brain was explained and the patient displayed an understanding. The overall objective is to improve ADLs, not eliminate glasses or restore vision to 20/20. Tests were reviewed - the different lens options were explained including the [id number] fees for any upgrades. Intraocular lens (IOL) selection may be altered either prior to or during the procedure based on the doctor's discretion including reverting to a traditional intraocular lens (IOL). They understood that there will exist the potential of glasses prescription need post surgery for near, distance or possibly both. The patient stated a full understanding and a desire to proceed with the procedure. The patient received cataract measurements and had any additional questions answered. - A complete exam was performed including a physical exam: General: AAOx3 and NAD, Lungs: Clear, Heart: RRR, Abdomen: S/NT/ND, Extremities: no pitting edema. documented in this encounter [facility] 06-23-2024 History of Presen t illness Narrative Images from the original note were not included. Assessment/Plan Diagnoses and all orders for this visit: Pseudophakia - s/p CE OD (POD #1): Patient provided with post-op form. Instructed to continue drops as well as shield. Instructed to call immediately with increased pain, redness, decreased vision, questions or concerns. documented in this encounter [facility] 06-02-2024 Note Right Eye Quality was good. Scan locations included subfoveal. Progression has been stable. Findings include abnormal foveal contour. Left Eye Quality was good. Scan locations included subfoveal. Progression has been stable. Findings include abnormal foveal contour. [facility] 06-02-2024 History of Presen t illness Narrative Images from the original note were not included. Subjective Patient ID: Mitch Lunsford is a 83 y.o. female. Chief Complaint Macular Degeneration; Cataract HPI Macular Degeneration In right eye. This started years ago. Vision is stable. Characterized as blurry vision. Associated difficulties include daily activities. Cataract In both eyes. Associated symptoms include blurred vision, glare and haloes. Severity is moderate. Onset was gradual. Frequency is constant. Context: mid-range vision, reading, watching TV and computer work. Since onset it is gradually worsening. Affected activities include working on the computer, night driving, watching TV and daily activities. Treatments tried include artificial tears and glasses. Response to treatment was mild improvement. 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 Pt states she uses restasis, and otc artificial tears for dry eyes. Pt states she thought she was here to schedule her cataract extraction (CE) she states she still needs to order her drops (gtts) that RX was sent 04/15/24. Last edited by Jo Ann Diego DO on 06/02/2024 2:45 PM. Current Outpatient Medications (Ophthalmic Agents) Medication Sig Dispense Refill cycloSPORINE (Restasis) 0.05 % ophthalmic emulsion Administer 1 drop into both eyes in the morning and 1 drop before bedtime. 180 mL 3 Itlgytqkzek-Stxlexwl-Ctjyqyzzo 1-0.5-0.075 % solution Administer 1 drop into affected eye(s) in the morning and 1 drop at noon and 1 drop in the evening and 1 drop before bedtime. 10 mL 1 No current facility-administered medications for this visit. (Ophthalmic Agents) Current Outpatient Medications (Other) Medication Sig Dispense Refill atorvastatin (Lipitor) 40 MG tablet Take 40 mg by mouth. ciprofloxacin (Cipro) 250 MG tablet lisinopril-hydroCHLOROthiazide 20-12.5 MG tablet Take by mouth. metoprolol tartrate (Lopressor) 25 MG tablet Take 25 mg by mouth in the morning and 25 mg before bedtime. No current facility-administered medications for this visit. (Other) Past Medical History: Diagnosis Date ARMD (age related macular degeneration) Cataract Dry eyes HTN (hypertension) (CMS/HCC) Hypercholesteremia (CMS/HCC) Allergies Allergen Reactions Sulfa Antibiotics Hives and Rash Review of Systems Constitutional: Negative. HENT: Negative. Eyes: Negative. Respiratory: Negative. Cardiovascular: Negative. Gastrointestinal: Negative. Genitourinary: Negative. Musculoskeletal: Negative. Skin: Negative. Neurological: Negative. Psychiatric/Behavioral: Negative. Hematological: Negative. Endocrine: Negative. Allergic/Immunologic: Negative. Objective Base Eye Exam Visual Acuity (Snellen - Linear) Right Left Dist cc 20/50 20/30 -1 Correction: Glasses Pupils Pupils Right PERRL Left PERRL Visual Goldman Left Right Full Full Extraocular Movement Right Left Full, Ortho Full, Ortho Neuro/Psych Oriented x3: Yes Dilation Both eyes: 1.0% Mydriacyl @ 1:43 PM Additional Tests Glare Testing High Right 20/400 Left 20/100 Slit Lamp and Fundus Exam External Exam Right Left External Rosacea, Brow ptosis Rosacea, Brow ptosis Slit Lamp Exam Right Left Lids/Lashes Blepharitis, Ptosis, Dermatochalasis - upper lid Blepharitis, Ptosis, Dermatochalasis - upper lid Conjunctiva/Sclera White and quiet White and quiet Cornea Decreased tear film, central anterior stromal hazy patches, 3-4+ diffuse superficial punctate keratitis (SPK), ABMD central Decreased tear film, 1+ superficial punctate keratitis (SPK), haze and ABMD changes Anterior Chamber Deep and quiet Deep and quiet Iris Round and reactive Round and reactive Lens 3+ Nuclear sclerosis, 1+ Cortical cataract 3+ Nuclear sclerosis, 1+ Cortical cataract Anterior Vitreous Normal Normal Fundus Exam Right Left Disc Normal Normal Macula Retinal pigment epithelial mottling, Hard drusen Retinal pigment epithelial mottling, Hard drusen Vessels Normal Normal Periphery Normal Normal Refraction Wearing Rx Sphere Cylinder [place] Add Right +0.25 -2.50 096 +2.25 Left +0.50 -2.25 086 +2.25 Final Rx Sphere Cylinder [place] Dist [place] Add Right -0.25 -2.50 095 20/50 +2.25 Left [place] -2.25 085 20/30 +2.25 Expiration Date: 06/02/2025 Assessment/Plan Diagnoses and all orders for this visit: Age-related nuclear cataract of both eyes - Visually Significant Cataract, OU: I discussed the risks, benefits, alternatives, and expectations of cataract surgery. A complete ophthalmic exam was performed and it was determined that the cataracts were a primary source of vision decline, affecting activities of daily living, necessitating removal. Limited vision post-surgery may occur with pre-existing conditions affecting other areas of the eye or the brain was explained and the patient displayed an understanding. The overall objective is to improve ADLs, not eliminate glasses or restore vision to 20/20. Tests were reviewed - the different lens options were explained including the [id number] fees for any upgrades. Intraocular lens (IOL) selection may be altered either prior to or during the procedure based on the doctor's discretion including reverting to a traditional intraocular lens (IOL). They understood that there will exist the potential of glasses prescription need post surgery for near, distance or possibly both. The patient stated a full understanding and a desire to proceed with the procedure. The patient received cataract measurements and had any additional questions answered. - A complete exam was performed including a physical exam: General: AAOx3 and NAD, Lungs: Clear, Heart: RRR, Abdomen: S/NT/ND, Extremities: no pitting edema. Exudative age-related macular degeneration of right eye with active choroidal neovascularization (CMS/HCC) - Cont current management. documented in this encounter [facility] 05-13-2024 Note Time Out 05/13/2024. 11:20 AM. Confirmed correct patient, procedure, site, and patient consented. Anesthesia Topical anesthesia was used. Anesthetic medications included Lidocaine 2%, Proparacaine 0.5%. Procedure Preparation included 5% betadine to ocular surface, eyelid speculum. A 30 gauge needle was used. Injection: 1.25 mg Bevacizumab 1.25 MG/0.05ML Route: Intravitreal, Site: Right Eye [facility]: [address]-6, Lot: [id number], Expiration date: 01/19/2025 Post-op Post injection exam found visual acuity of at least counting fingers, no retinal detachment, perfused optic nerve. The patient tolerated the procedure well. There were no complications. The patient received written and verbal post procedure care education. Post injection medications were not given. Notes Intravitreal antiVEGF Treatment: Risks, benefits and alternatives were discussed for Intravitreal injection with the prescribed antiVEGF agent. With intraocular surgery, there is potential for direct retinal damage through retinal or RPE tear, or infection, with subsequent vision loss. Informative Intravitreal pamphlet provided as well as an OMIC consent. Of course, the treatment may fail to accomplish the overall therapeutic objectives, which is to stall or decrease the amount of retinal edema / bleeding, and therefore stall or improve vision loss. Intravitreal Anti-VEGF: Consent was obtained and questions answered. Operative eye was identified, receiving topical proparacaine, 5% betadine, and 2% xylocaine jelly. A lid speculum was placed and the inferotemp. injection site received additional anesthetic with a proparacaine soaked cotton swab. Using calipers (set at 3.5mm for pseudo and 4mm for phakic), the inferotemp. limbus was measured, sclera marked and 2 additional drops of betadine placed. Avoiding any talking to avoid contamination, intravitreal injection was carried out without difficulty. Any residual amount of medication was discarded appropriately. The patient tolerated the procedure well and instructed to call with increased pain, redness, decreased vision or concerns. [facility] 05-13-2024 Note Right Eye Quality was good. Scan locations included subfoveal. Progression has been stable. Findings include normal observations. Left Eye Quality was good. Scan locations included subfoveal. Progression has been stable. Findings include normal observations. Notes Good scan with normal appearance [facility] 05-13-2024 History of Presen t illness Narrative Images from the original note were not included. Assessment/Plan Diagnoses and all orders for this visit: Exudative age-related macular degeneration of right eye with active choroidal neovascularization (CMS/HCC) - OCT, Retina - OU - Both Eyes - Intravitreal Injection, Pharmacologic Agent - OD - Right Eye - Bevacizumab solution prefilled syringe 1.25 mg OCT, Retina - OU - Both Eyes Right Eye Quality was good. Scan locations included subfoveal. Progression has been stable. Findings include normal observations. Left Eye Quality was good. Scan locations included subfoveal. Progression has been stable. Findings include normal observations. Notes Good scan with normal appearance Linked Images Intravitreal Injection, Pharmacologic Agent - OD - Right Eye Time Out 05/13/2024. 11:20 AM. Confirmed correct patient, procedure, site, and patient consented. Anesthesia Topical anesthesia was used. Anesthetic medications included Lidocaine 2%, Proparacaine 0.5%. Procedure Preparation included 5% betadine to ocular surface, eyelid speculum. A 30 gauge needle was used. Injection: 1.25 mg Bevacizumab 1.25 MG/0.05ML Route: Intravitreal, Site: Right Eye [facility]: [address]-8, Lot: [id number], Expiration date: 01/19/2025 Post-op Post injection exam found visual acuity of at least counting fingers, no retinal detachment, perfused optic nerve. The patient tolerated the procedure well. There were no complications. The patient received written and verbal post procedure care education. Post injection medications were not given. Notes Intravitreal antiVEGF Treatment: Risks, benefits and alternatives were discussed for Intravitreal injection with the prescribed antiVEGF agent. With intraocular surgery, there is potential for direct retinal damage through retinal or RPE tear, or infection, with subsequent vision loss. Informative Intravitreal pamphlet provided as well as an OMIC consent. Of course, the treatment may fail to accomplish the overall therapeutic objectives, which is to stall or decrease the amount of retinal edema / bleeding, and therefore stall or improve vision loss. Intravitreal Anti-VEGF: Consent was obtained and questions answered. Operative eye was identified, receiving topical proparacaine, 5% betadine, and 2% xylocaine jelly. A lid speculum was placed and the inferotemp. injection site received additional anesthetic with a proparacaine soaked cotton swab. Using calipers (set at 3.5mm for pseudo and 4mm for phakic), the inferotemp. limbus was measured, sclera marked and 2 additional drops of betadine placed. Avoiding any talking to avoid contamination, intravitreal injection was carried out without difficulty. Any residual amount of medication was discarded appropriately. The patient tolerated the procedure well and instructed to call with increased pain, redness, decreased vision or concerns. documented in this encounter [facility] 04-15-2024 Note Right Eye Quality was poor. Scan locations included subfoveal. Progression has been stable. Findings include abnormal foveal contour. Left Eye Quality was borderline. Scan locations included subfoveal. Progression has been stable. Findings include normal observations. Notes Good scan with normal appearance OS [facility] 04-15-2024 History of Presen t illness Narrative Images from the original note were not included. Assessment/Plan Diagnoses and all orders for this visit: Keratoconjunctivitis sicca of both eyes not specified as Sjogren's - Keratoconjunctivitis sicca OU -- Environmental changes to minimize dryness and exposure and the use of artificial tears were recommended. Begin Restasis both eyes (OU) BID as well as artificial tears both eyes (OU) QID and warm compresses. - Pt has failed at using artificial tears alone. Age-related nuclear cataract of both eyes - Cataract, OU: Observe for now without intervention. The patient was advised to contact us if any change or worsening of vision Exudative age-related macular degeneration of right eye with active choroidal neovascularization (CMS/HCC) - Repeat antiVEGF in treatment and extension model with a return in 4 wks for a total of 8 wks since last injection. documented in this encounter [facility] 03-18-2024 Note Time Out 03/18/2024. 3:58 PM. Confirmed correct patient, procedure, site, and patient consented. Anesthesia Topical anesthesia was used. Anesthetic medications included Lidocaine 2%, Proparacaine 0.5%. Procedure Preparation included 5% betadine to ocular surface, eyelid speculum. A 30 gauge needle was used. Injection: 1.25 mg Bevacizumab 1.25 MG/0.05ML Route: Intravitreal, Site: Right Eye [facility]: [address]-3, Lot: [id number], Expiration date: 05/14/2024 Post-op Post injection exam found visual acuity of at least counting fingers, no retinal detachment, perfused optic nerve. The patient tolerated the procedure well. There were no complications. The patient received written and verbal post procedure care education. Post injection medications were not given. Notes Intravitreal antiVEGF Treatment: Risks, benefits and alternatives were discussed for Intravitreal injection with the prescribed antiVEGF agent. With intraocular surgery, there is potential for direct retinal damage through retinal or RPE tear, or infection, with subsequent vision loss. Informative Intravitreal pamphlet provided as well as an OMIC consent. Of course, the treatment may fail to accomplish the overall therapeutic objectives, which is to stall or decrease the amount of retinal edema / bleeding, and therefore stall or improve vision loss. Intravitreal Anti-VEGF: Consent was obtained and questions answered. Operative eye was identified, receiving topical proparacaine, 5% betadine, and 2% xylocaine jelly. A lid speculum was placed and the inferotemp. injection site received additional anesthetic with a proparacaine soaked cotton swab. Using calipers (set at 3.5mm for pseudo and 4mm for phakic), the inferotemp. limbus was measured, sclera marked and 2 additional drops of betadine placed. Avoiding any talking to avoid contamination, intravitreal injection was carried out without difficulty. Any residual amount of medication was discarded appropriately. The patient tolerated the procedure well and instructed to call with increased pain, redness, decreased vision or concerns. [facility] 03-18-2024 Note Right Eye Quality was poor. Scan locations included subfoveal. Progression has been stable. Findings include normal observations. Left Eye Quality was borderline. Scan locations included subfoveal. Progression has been stable. Findings include normal observations. Notes Good scan with normal appearance [facility] 03-18-2024 History of Presen t illness Narrative Images from the original note were not included. Assessment/Plan Diagnoses and all orders for this visit: Exudative age-related macular degeneration of right eye with active choroidal neovascularization (CMS/HCC) - OCT, Retina - OU - Both Eyes - Intravitreal Injection, Pharmacologic Agent - OD - Right Eye - Bevacizumab solution prefilled syringe 1.25 mg OCT, Retina - OU - Both Eyes Right Eye Quality was poor. Scan locations included subfoveal. Progression has been stable. Findings include normal observations. Left Eye Quality was borderline. Scan locations included subfoveal. Progression has been stable. Findings include normal observations. Notes Good scan with normal appearance Linked Images Intravitreal Injection, Pharmacologic Agent - OD - Right Eye Time Out 03/18/2024. 3:58 PM. Confirmed correct patient, procedure, site, and patient consented. Anesthesia Topical anesthesia was used. Anesthetic medications included Lidocaine 2%, Proparacaine 0.5%. Procedure Preparation included 5% betadine to ocular surface, eyelid speculum. A 30 gauge needle was used. Injection: 1.25 mg Bevacizumab 1.25 MG/0.05ML Route: Intravitreal, Site: Right Eye [facility]: [address]-4, Lot: [id number], Expiration date: 05/14/2024 Post-op Post injection exam found visual acuity of at least counting fingers, no retinal detachment, perfused optic nerve. The patient tolerated the procedure well. There were no complications. The patient received written and verbal post procedure care education. Post injection medications were not given. Notes Intravitreal antiVEGF Treatment: Risks, benefits and alternatives were discussed for Intravitreal injection with the prescribed antiVEGF agent. With intraocular surgery, there is potential for direct retinal damage through retinal or RPE tear, or infection, with subsequent vision loss. Informative Intravitreal pamphlet provided as well as an OMIC consent. Of course, the treatment may fail to accomplish the overall therapeutic objectives, which is to stall or decrease the amount of retinal edema / bleeding, and therefore stall or improve vision loss. Intravitreal Anti-VEGF: Consent was obtained and questions answered. Operative eye was identified, receiving topical proparacaine, 5% betadine, and 2% xylocaine jelly. A lid speculum was placed and the inferotemp. injection site received additional anesthetic with a proparacaine soaked cotton swab. Using calipers (set at 3.5mm for pseudo and 4mm for phakic), the inferotemp. limbus was measured, sclera marked and 2 additional drops of betadine placed. Avoiding any talking to avoid contamination, intravitreal injection was carried out without difficulty. Any residual amount of medication was discarded appropriately. The patient tolerated the procedure well and instructed to call with increased pain, redness, decreased vision or concerns. Age-related nuclear cataract of both eyes - Plan for cataract extraction (CE) left eye (OS) then right eye (OD) with right eye (OD) 2 wks after Avastin. documented in this encounter [facility] 02-14-2024 Note Time Out 01/28/2024. 11:00 AM. Confirmed correct patient, procedure, site, and patient consented. Anesthesia Topical anesthesia was used. Anesthetic medications included Lidocaine 2%, Proparacaine 0.5%. Procedure Preparation included 5% betadine to ocular surface, eyelid speculum. A 30 gauge needle was used. Injection: 1.25 mg Bevacizumab 1.25 MG/0.05ML Route: Intravitreal, Site: Right Eye [facility]: [address]-4, Lot: [id number], Expiration date: 03/22/2024 Post-op Post injection exam found visual acuity of at least counting fingers, no retinal detachment, perfused optic nerve. The patient tolerated the procedure well. There were no complications. The patient received written and verbal post procedure care education. Post injection medications were not given. Notes Intravitreal antiVEGF Treatment: Risks, benefits and alternatives were discussed for Intravitreal injection with the prescribed antiVEGF agent. With intraocular surgery, there is potential for direct retinal damage through retinal or RPE tear, or infection, with subsequent vision loss. Informative Intravitreal pamphlet provided as well as an OMIC consent. Of course, the treatment may fail to accomplish the overall therapeutic objectives, which is to stall or decrease the amount of retinal edema / bleeding, and therefore stall or improve vision loss. Intravitreal Anti-VEGF: Consent was obtained and questions answered. Operative eye was identified, receiving topical proparacaine, 5% betadine, and 2% xylocaine jelly. A lid speculum was placed and the inferotemp. injection site received additional anesthetic with a proparacaine soaked cotton swab. Using calipers (set at 3.5mm for pseudo and 4mm for phakic), the inferotemp. limbus was measured, sclera marked and 2 additional drops of betadine placed. Avoiding any talking to avoid contamination, intravitreal injection was carried out without difficulty. Any residual amount of medication was discarded appropriately. The patient tolerated the procedure well and instructed to call with increased pain, redness, decreased vision or concerns. [facility] 02-03-2024 Note Right Eye Quality was good. Scan locations included subfoveal. Progression has been stable. Findings include abnormal foveal contour, pigment epithelial detachment, subretinal fluid. Left Eye Quality was good. Scan locations included subfoveal. Progression has been stable. Findings include normal observations. Notes Good scan with normal appearance OS [facility] 01-28-2024 History of Presen t illness Narrative Images from the original note were not included. Assessment/Plan Diagnoses and all orders for this visit: Age-related nuclear cataract of both eyes Exudative age-related macular degeneration of right eye with active choroidal neovascularization (CMS/HCC) - OCT, Retina - OU - Both Eyes - Intravitreal Injection, Pharmacologic Agent - OD - Right Eye - Bevacizumab solution prefilled syringe 1.25 mg OCT, Retina - OU - Both Eyes Right Eye Quality was good. Scan locations included subfoveal. Progression has been stable. Findings include abnormal foveal contour, pigment epithelial detachment, subretinal fluid. Left Eye Quality was good. Scan locations included subfoveal. Progression has been stable. Findings include normal observations. Notes Good scan with normal appearance OS Linked Images Intravitreal Injection, Pharmacologic Agent - OD - Right Eye Time Out 01/28/2024. 11:00 AM. Confirmed correct patient, procedure, site, and patient consented. Anesthesia Topical anesthesia was used. Anesthetic medications included Lidocaine 2%, Proparacaine 0.5%. Procedure Preparation included 5% betadine to ocular surface, eyelid speculum. A 30 gauge needle was used. Injection: 1.25 mg Bevacizumab 1.25 MG/0.05ML Route: Intravitreal, Site: Right Eye [facility]: [address]-7, Lot: [id number], Expiration date: 03/22/2024 Post-op Post injection exam found visual acuity of at least counting fingers, no retinal detachment, perfused optic nerve. The patient tolerated the procedure well. There were no complications. The patient received written and verbal post procedure care education. Post injection medications were not given. Notes Intravitreal antiVEGF Treatment: Risks, benefits and alternatives were discussed for Intravitreal injection with the prescribed antiVEGF agent. With intraocular surgery, there is potential for direct retinal damage through retinal or RPE tear, or infection, with subsequent vision loss. Informative Intravitreal pamphlet provided as well as an OMIC consent. Of course, the treatment may fail to accomplish the overall therapeutic objectives, which is to stall or decrease the amount of retinal edema / bleeding, and therefore stall or improve vision loss. Intravitreal Anti-VEGF: Consent was obtained and questions answered. Operative eye was identified, receiving topical proparacaine, 5% betadine, and 2% xylocaine jelly. A lid speculum was placed and the inferotemp. injection site received additional anesthetic with a proparacaine soaked cotton swab. Using calipers (set at 3.5mm for pseudo and 4mm for phakic), the inferotemp. limbus was measured, sclera marked and 2 additional drops of betadine placed. Avoiding any talking to avoid contamination, intravitreal injection was carried out without difficulty. Any residual amount of medication was discarded appropriately. The patient tolerated the procedure well and instructed to call with increased pain, redness, decreased vision or concerns. documented in this encounter [facility] 12-17-2023 Note Right Eye Quality was good. Scan locations included subfoveal. Progression has been stable. Findings include abnormal foveal contour. Left Eye Quality was good. Scan locations included subfoveal. Progression has been stable. Findings include abnormal foveal contour. 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 documented in this encounter [facility] 12-07-2022 Evaluation note Encounter Date Diagnosis Assessment Notes Dec, Acute cystitis without hematuria (ICD-10 - N30.00) [facility] Other 09-05-2023 Evaluation note* Encounter Date Diagnosis [...] - R53.83) Check labs: TSH and H/H [facility] Other 06-20-2023 NoteChief Complaint consultation for bowel [...] Mother. 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 choroidal neovascularization (CMS/HCC)- Primary Age-related nuclear cataract of both eyes Keratoconjunctivitis sicca of both eyes not specified as Sjogren's documented in this encounter [facility]* Diagnosis Onset Date Resolution Status Cervical spondylosis acute H/O malignant neoplasm of breast acute Hypercholesterolemia acute Hypertension acute IBS (irritable bowel syndrome) acute Medicare annual wellness visit, subsequent acute Rheumatoid arthritis acute Screening mammogram for breast cancer acute [facility] Work Phone: Evaluation note* Diagnosis Age-related nuclear cataract of both eyes- Primary Exudative age-related macular degeneration of right eye with active choroidal neovascularization (CMS/HCC) [facility]* Diagnosis Exudative age-related macular degeneration of right eye with active choroidal neovascularization (CMS/HCC)- Primary Age-related nuclear cataract of both eyes [facility]* Diagnosis Keratoconjunctivitis sicca of both eyes not specified as Sjogren's- Primary Age-related nuclear cataract of both eyes Exudative age-related macular degeneration of right eye with active choroidal neovascularization (CMS/HCC) [facility]* Diagnosis Exudative age-related macular degeneration of right eye with active choroidal neovascularization (CMS/HCC)- Primary [facility]* Diagnosis Age-related nuclear cataract of both eyes- Primary Exudative age-related macular degeneration of right eye with active choroidal neovascularization (CMS/HCC) [facility]* Diagnosis Pseudophakia- Primary Lens replaced by other means documented in this encounter [facility] HealthcareEvaluation note* Diagnosis Pseudophakia- Primary Lens replaced by other means Age-related nuclear cataract of left eye documented in this encounter [facility] HealthcareEvaluation note* Diagnosis Exudative age-related macular degeneration of right eye with active choroidal neovascularization (CMS/HCC)- Primary documented in this encounter [facility] HealthcareEvaluation note* Diagnosis Pseudophakia- Primary Lens replaced by other means documented in this encounter [facility] HealthcareEvaluation note* Diagnosis Exudative age-related macular degeneration of right eye with active choroidal neovascularization (HCC)- Primary documented in this encounter [facility] HealthcareEvaluation noteNo assessment information [facility] Work [facility]: Evaluation note* Diagnosis Onset Date Resolution Status Admit Date Cervical spondylosis acute Nov 10:38am H/O malignant neoplasm of breast acu te November 17, 2024 10:38am Hypercholesterolemia acute Nov 10:38am Hypertension acute November 172024 10:38am IBS (irritable bowel syndrome) acute November 17, 2024 10:38am Rheumatoid arthritis acute Nov 10:38am [facility] Work Phone: History general Narrative - Reported* [...] Colonoscopy 09/2022 Hospitalization History SEE SURGICAL HX [facility] Other Hospital Discharge instructions No data available for this section General Surgery [place] [facility] note No data available for this section General Surgery [place] Reason for referral (narrative)No reason for referral information [facility]Hol[facility] Work Phone: Summary Purpose Family History Relationship Condition Age [...] Rheumatoid arthritis Screening mammogram for breast cancer Chief Complaint Admit Date UA:Stomach Pain November 11, 2024 1:21pm Chief Complaint Admit Date UA:Stomach Pain November 11, 2024 1:21pm not feeling well November 17, 2024 10:38am Reason for Visit Admit Date Cervical spondylosis November 17 10:38am H/O malignant neoplasm of breast Septemb er 2024 10:38am Hypercholesterolemia November 17 10:38am Hypertension November 17, 2024 10:38am IBS (irritable bowel syndrome) November 17, 2024 10:38am Rheumatoid arthritis November 17 10:38am Additional Source Comments INFORMATION SOURCE (unrecogn ized section and content) DATE CREATED AUTHOR 04/11/2020 [facility] DATE CREATED AUTHOR AUTHOR'S ORGANIZ ATION 10/25/2021 [facility] DATE CREATED AUTHOR AUTHOR'S ORGANIZ ATION 09/21/2022 [facility] DATE CREATED AUTHOR AUTHOR'S ORGANIZ ATION 10/22/2024 [facility] EPIC Patient Care team informatio n (unrecognized section and content) Team Status: Active Member Role Status Dates Kirby Bernal DO Primary Care Provider Active Team Status: Inactive Member Role Status Dates Kirby Bernal DO Primary Care Provider Active Start: November 11, 2024 End: November 11, 2024 Kirby Bernal DO Attending Provider Active Sta rt: November 11, 2024 End: November 11, 2024 Auto Technician Relationship Specialty Start Date End Date Kirby Bernal MD [address] [place] [id number] PCP - General Internal Medicine 08/28/23 Auto Technician Relationship Specialty Start Date End Date Kirby Bernal MD [address] [place] [id number] PCP - General Internal Medicine 08/28/23 Team [...] December 27, 2023 End: December 27, 2023 Auto Technician Relationship Specialty Start Date End Date Kirby Bernal MD [address] [place] [address] PCP - General Internal Medicine 08/28/23 Auto Technician Relationship Specialty Start Date End Date Kirby Bernal MD [address] [place] [address] PCP - General Internal Medicine 08/28/23 Auto Technician Relationship Specialty Start Date End Date Kirby Bernal MD [address] [place] [phone] PCP - General Internal Medicine 08/28/23 Auto Technician Relationship Specialty Start Date End Date Kirby Bernal MD [address] [place] [address] PCP - General Internal Medicine 08/28/23 Auto Technician Relationship Specialty Start Date End Date Kirby Bernal MD [address] [place] [address] PCP - General Internal Medicine 08/28/23 Auto Technician Relationship Specialty Start Date End Date Kirby Bernal MD PCP - General Internal Medicine 08/28/23 Auto Technician Relationship Specialty Start Date End Date Kirby Bernal MD PCP - General Internal Medicine 08/28/23 Auto Technician Relationship Specialty Start Date End Date Kirby Bernal DO [address] [facility] [phone] PCP - General Internal Medicine 08/28/23 Auto Technician Relationship Specialty Start Date End Date Kirby Bernal DO [address] [facility], [phone] PCP - General Internal Medicine 08/28/23 Auto Technician Relationship Specialty Start Date End Date Kirby Bernal DO [address] [facility], [phone] PCP - General Internal Medicine 08/28/23 Auto Technician Relationship Specialty Start Date End Date Kirby Bernal DO [address] [facility], [phone] PCP - General Internal Medicine 08/28/23 Auto Technician Relationship Specialty Start Date End Date Kirby Bernal DO [address] [facility] [address] PCP - General Internal Medicine 08/28/23 Auto Technician Relationship Specialty Start Date End Date Kirby Bernal DO [address] [facility] [place] [place] [phone] PCP - General Internal Medicine 08/28/23 Auto Technician Relationship Specialty Start Date End Date Kirby Bernal DO [address] [facility] [place] [phone] PCP - General Internal Medicine 08/28/23 Team Status: Inactive Member Role Status Dates Kirby Bernal DO Primary Care Provider Active Start: November 17, 2024 End: November 17, 2024 Kirby Bernal DO Attending Provider Active Sta rt: November 17, 2024 End: November 17, 2024 REASON FOR VISIT (unrecogniz ed section and content) Reason Comments Retinal Injection Follow-up Macular Degeneration Reason Comments Retinal Injection Reason Comments Follow-up Retinal Injection Macular Degeneration Reason Comments Cataract Reason Comments Macular Degeneration Retinal Injection Reason Comments Macular Degeneration Cataract Reason Comments Post-op Reason Comments Post-op Follow-up Cataract Reason Comments Post-op Follow-up Goals (unrecognized section and content) Goals may [...] BE BASED ON THE PRIMARY CLINICAL RECORDS. [employer] provides no warranty or guarantee of the accuracy or completeness of information in this document.
--- NOTE | 2024-12-04 09:17 | CT_ITS ---
The [address] [address] Patient Name: MITCH LUNSFORD MRN: [id number] date: 1940 Sex: F Assigned Patient Location: LAB Current Patient Location: LAB Accession/Order Number: [id number] Exam Date: 12/04/2024 10:30 Report Date: 12/04/2024 14:33 At the request of: VELVET MEEHAN DO Procedure: CT abdomen pelvis wo con CT ABDOMEN AND PELVIS WITHOUT INTRAVENOUS CONTRAST: CLINICAL HISTORY: Abdominal pain, Altered Bowel Habits COMPARISON: None TECHNIQUE: Spiral images were obtained through the abdomen and pelvis without intravenous contrast. This CT exam was performed using one or more following dose reduction techniques: Automated exposure control, adjustment of the mA and/or kV according to patient size, or use of iterative reconstruction technique. FINDINGS: Lung Bases: [Mild bibasilar to/scarring. Small cyst right lower lobe.] Organs:Suboptimal evaluation due to lack of IV contrast. Liver cyst. Gallbladder spleen pancreas and adrenal glands appear unremarkable. Kidneys demonstrate no stone or hydronephrosis. Abdominal aorta appears normal in caliber.[ GI: Stomach is grossly unremarkable. Small bowel appears nondilated. Left colon diverticulosis.[ Pelvis:[Urinary bladder is grossly unremarkable. Uterus is grossly unremarkable.] Peritoneum/Retroperitoneum:No free air or free fluid or lymphadenopathy.[ Abd wall/Bones:Abdominal wall demonstrates no acute findings. Osseous structures demonstrate degenerative change.[ CT/CT abdomen pelvis wo con IMPRESSION: No acute findings. Colonic diverticulosis. Impression dictated by: Julian Rae Jr., D.O. 12/04/2024 2:33 PM Dictation Location: [place] [address] Electronically authenticated by: [id number] Y Date: 12/04/2024 14:33
[2024-12-04 09:46] LABS: Hematocrit 40.7 % (36.0-48.0); Hemoglobin 13.4 g/dL (12.0-16.0); Immature Granulocytes Abs Auto 0.01 10^3/uL (0.00-0.03); Immature Granulocytes Pct Auto 0.2 % (0.0-0.5); Lymphocytes Absolute Auto 1.6 10^3/uL (1.2-3.8); Mean Corpuscular HGB Conc 32.9 g/dL (29.9-35.2); Mean Corpuscular Hemoglobin 28.6 pg (26.7-34.0); Mean Corpuscular Volume 87.0 fL (81.0-99.0); Platelet Count 243 10^3/uL (150-450); Red Blood Count 4.68 10^6/uL (4.20-5.40); White Blood Count 5.8 10^3/uL (4.0-11.0)
[2024-12-04 10:30] LABS: Alanine Aminotransferase 27 U/L (14-59); Albumin Globulin Ratio 0.8; Albumin Level 3.7 g/dL (3.4-5.0); Alkaline Phosphatase 82 U/L (46-116); Anion Gap 10.2; Aspartate Amino Transferase 19 U/L (15-37); Blood Urea Nitrogen 18.0 mg/dL (7.0-18.0); Calcium 9.9 mg/dL (8.5-10.1); Carbon Dioxide 33.5 mmol/L (21.0-32.0); Chloride 99 mmol/L (98-107); Cholesterol 192 mg/dL (<=200); Estimated GFR (African America >60 (>=60 mL/min/1.73m^2); Estimated GFR (Non-African Ame >60 (>=60 mL/min/1.73m^2); Globulin 4.9 g/dL; Glucose 109 mg/dL (74-106); HDL Cholesterol 77 mg/dL (40-60); Potassium 3.7 mmol/L (3.5-5.1); Sodium 139 mmol/L (136-145); Thyroid Stimulating Hormone 3.197 uIU/mL (0.358-3.740); Total Protein 8.6 g/dL (6.4-8.2); Triglycerides 69 mg/dL (<=150); VLDL CHOLESTEROL 13.8 mg/dL
== END 2024-12-04 09:02 | disposition home or self-care (01) ==
LOC: LAB 09:01
PROVIDERS: PCP Internal Medicine; Visit Provider Internal Medicine
DX: E78.00 Pure hypercholesterolemia, unspecified (principal); R10.32 Left lower quadrant pain; I10 Essential (primary) hypertension; R53.83 Other fatigue; R30.0 Dysuria; R19.4 Change in bowel habit; K57.90 Diverticulosis of intestine, part unspecified, without perforation or abscess without bleeding
CPT/HCPCS: 36415; 74176; 80053; 80061; 81001; 84443; 85025; 87086

== ENCOUNTER 2024-12-05 12:02 | Outpatient (REF) | payer MEDICARE, SELFPAY ==
--- OUTSIDE RECORDS SUMMARY | 2024-12-05 12:05 | XMS_ITS | CCD ---
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 Name Role Phone DR JOSE YOUSIF Consulting Unavailable ZORAN, DR VERDIN Admitting Unavailable ZORAN, DR VERDIN Attending Unavailable ZORAN, DR VERDIN Primary Care Unavailable ZORAN, DR VERDIN Primary Care Unavailable ZORAN, DR VERDIN Admitting Unavailable ZORAN, DR VERDIN Attending Unavailable ZORAN, DR VERDIN Consulting Unavailable SHONDA, DR JOSE aXvier Consulting Unavailable KIRBY BERNAL Primary Care Physician [...] Unavailable Kirby Bernal DO Primary Care Provider Kirby Bernal DO Attending Provider Allergies Allergy Classification Reported Allergen(s) Allergy Type Date of Onset Reaction(s) Facility (1 source) Sulfonamides (Antibiotic) Drug allergy (disorder) 3 [facility] Repository (2 sources) Sulfonamides (Antibiotic); Translations: [sulfa drugs] Drug allergy 3 Urticaria (disorder) [facility] [place] (20 sources) Sulfonamides (Antibiotic) Drug Allergy 3 [...] fatigue Episodic Other aftercare (2 sources) Other half-way (current) drug therapy; Translations: [OTH CORRECTION CURRENT DRUG THERAPY] Onset: 10-25-19 Episodic Other [...] Bernal on 11-11-2024 Bilirubin Ql (U) Negative [facility] Glucose (U) [Mass/Vol] Negative [facility] Ketones Ql (U) Negative [facility] pH (U) 7.0 [pH] [facility] Specific gravity (U) [Rel density] 1.000 [facility] Urobilinogen (U) [Mass/Vol] 0.2 mg/dL [facility] Laboratory - Specimen inform ationOrdered By: Kirby Bernal on 11-11-2024 Appearance (U) clear [facility] Color (U) lightyellow [facility] Laboratory - UrinalysisOrder ed By: Kirby Bernal on 11-11-2024 Leukocyte esterase Test strip Ql (U) + [facility] Nitrite Ql (U) Negative [facility] Protein Ql (U) + [facility] No Panel InformationOrdered By: Kirby Bernal on 11-11-2024 Urine Occult Blood Negative [facility] Intravitreal Injection, Phar macologic Agent - OD - Right Eyeon 10-21-2024 [facility] Radiology Study observation (narrative) [facility] Optical coherence tomography study reporton 10-21-2024 On license of [facility] Radiology Study observation (narrative) [facility] Intravitreal Injection, Phar macologic Agent - OD - Right Eyeon 07-14-2024 [facility] Radiology Study observation (narrative) [facility] Optical coherence tomography study reporton 07-14-2024 On license of [facility] Radiology Study observation (narrative) [facility] Optical coherence tomography study reporton 06-02-2024 On license of [facility] Radiology Study observation (narrative) [facility] US Eye+Orbit - bilateralon 0 06-02-2024 Diagnosis: Cataract both eyes (OU) Testing Indication: Performed for preop measurements in the determination of an intraocular lens (IOL) for both eyes (OU) Test Reliability: Good quality both eyes (OU) Interpretation: Good measurements for intraocular lens (IOL) calculation purposes. Calculation made for both eyes (OU). On license of [facility] Radiology Study observation (narrative) [facility] Intravitreal Injection, Phar macologic Agent - OD - Right Eyeon 05-13-2024 [facility] Radiology Study observation (narrative) [facility] Optical coherence tomography study reporton 05-13-2024 On license of [facility] Radiology Study observation (narrative) [facility] Optical coherence tomography study reporton 04-15-2024 On license of [facility] Radiology Study observation (narrative) [facility] Intravitreal Injection, Phar macologic Agent - OD - Right Eyeon 03-18-2024 [facility] Radiology Study observation (narrative) [facility] Optical coherence tomography study reporton 03-18-2024 On license of [facility] Radiology Study observation (narrative) [facility] Intravitreal Injection, Phar macologic Agent - OD - Right Eyeon 02-14-2024 [facility] Optical coherence tomography study reporton 02-03-2024 On license of [facility] No Panel Informationon 01-27 Radiology Study observation (narrative) [facility] Optical coherence tomography study reporton 12-17-2023 [facility] Radiology Study observation (narrative) [facility] Study observation Right reti na by OCTon 12-17-2023 [facility] Radiology Study observation (narrative) [facility] Outside Colonoscopyon 2022 Outside Colonoscopy [id number] 40#1.00CD:127 Normal [facility] Consent for Procedure/Surger yon 08-22-2022 Consent for Procedure/Surgery [id number] 4#1.00CD:127 Normal [facility] Ambulatory Visit Summaryon 0 08-21-2022 Ambulatory Visit [...] Overweight Rheumatoid arthritis Seasonal allergic rhinitis Normal [facility] Ambulatory Visit Summary MITCH LUNSFORD :1940 Visit [...] Osteopenia Overweight Rheumatoid arthritis Seasonal allergic rhinitis [facility] Physician Referralon 023 Physician Referral [id number] F1#1.00CD:127 Normal [facility] CBC AUTO DIFFon 10-20-2021 BASO # 0.0 103/ul Normal 0.0-0.1 [facility] Comment on above: Performed By: #### C BC #### [facility] [address] [address] [address] Zion Baugh Basophils/100 WBC (Bld) 0.6 % Normal 0.2-2.0 [facility] Comment on above: Performed By: #### C BC #### [facility] [address] [address] [address] Zion Baugh EO # 0.1 103/ul Normal 0.0-0.7 [facility] Comment on above: Performed By: #### C BC #### [facility] [address] [place] [address] Dr. Zion Baugh Eosinophils/100 WBC (Bld) 1.1 % Normal 0.9-7.0 [facility] Comment on above: Performed By: #### C BC #### [facility] [address] [address] [address] Zion Baugh Erythrocyte distribution width (RBC) [Ratio] 14.7 % Normal 11.0-15.0 [facility] Comment on above: Performed By: #### C BC #### [facility] [address] [place] [address] Dr. Zion Baugh Hematocrit (Bld) [Volume fraction] 39.9 % Normal 36.0-48.0 [facility] Comment on above: Performed By: #### C BC #### [facility] [address] [address] [address] Zion Baugh Hemoglobin (Bld) [Mass/Vol] 13.1 g/dL Normal 12.0-16.0 [facility] Comment on above: Performed By: #### C BC #### [facility] [address] [place] [address] Dr. Zion Baugh IG # 0.02 10e3/ul Normal 0.00-0.03 [facility] Comment on above: Performed By: #### C BC #### [facility] [address] [place] [address] Dr. Zion Baugh IG % 0.3 % Normal 0.0-0.5 [facility] Comment on above: Performed By: #### C BC #### [facility] [address] [place] [address] Dr. Zion Baugh LYMPH # 1.7 103/ul Normal 1.2-3.8 [facility] Comment on above: Performed By: #### C BC #### [facility] [address] [place] [address] Dr. Zion Baugh Lymphocytes/100 WBC (Bld) 26.1 % Normal 20.5-60.0 [facility] Comment on above: Performed By: #### C BC #### [facility] [address] [place] [address] Dr. Zion Baugh MANUAL DIFF REQ NO Normal [facility] Comment on above: Performed By: #### C BC #### [facility] [address] [place] [address] Dr. Zion Baugh MCH (RBC) [Entitic mass] 28.4 pg Normal 26.7-34.0 [facility] Comment on above: Performed By: #### C BC #### [facility] [address] [place] [address] Dr. Zion Baugh MCHC (RBC) [Mass/Vol] 32.8 g/dL Normal 29.9-35.2 [facility] Comment on above: Performed By: #### C BC #### [facility] [address] [place] [address] Dr. Zion Baugh MCV (RBC) [Entitic vol] 86.4 fL Normal 81.0-99.0 [facility] Comment on above: Performed By: #### C BC #### [facility] [address] [place] [address] Dr. Zion Baugh MONO # 0.6 103/ul Normal 0.3-0.8 [facility] Comment on above: Performed By: #### C BC #### [facility] [address] [place] [address] Dr. Zion Baugh Monocytes/100 WBC (Bld) 8.6 % Normal 1.7-12.0 [facility] Comment on above: Performed By: #### C BC #### [facility] [address] [place] [address] Dr. Zion Baugh NEUT # 4.0 103/ul Normal 1.4-6.5 [facility] Comment on above: Performed By: #### C BC #### [facility] [address] [place] [address] Dr. Zion Baugh Neutrophils/100 WBC (Bld) 63.3 % Normal 43.0-75.0 [facility] Comment on above: Performed By: #### C BC #### [facility] [address] [place] [address] Dr. Zion Baugh Platelet mean volume (Bld) [Entitic vol] 10.5 fL Normal 9.5-13.5 [facility] Comment on above: Performed By: #### C BC #### [facility] [address] [place] [address] Dr. Zion Baugh PLT 235 103/ul Normal 150-450 [facility] Comment on above: Performed By: #### C BC #### [facility] [address] [place] [address] Dr. Zion Baugh RBC 4.62 106/ul Normal 4.20-5.40 [facility] Comment on above: Performed By: #### C BC #### [facility] [address] [place] [address] Dr. Zion Baugh WBC 6.4 103/ul Normal 4.0-11.0 [facility] Comment on above: Performed By: #### C BC #### [facility] [address] [place] [address] Dr. Zion Baugh DIRECT LDLon 10-20-2021 Cholesterol in LDL [Mass/Vol] 88 mg/dL Normal [facility] Comment on above: Performed By: #### B MP, DLDL #### [facility] [address] [address] [address] Zion Baugh DLDL NORMAL SEE BELOW Normal [facility] Comment on above: Result Comment: <100 mg/dl OPTIMAL 100 - 129 mg/dl NEAR OR ABOVE OPTIMAL 130 - 159 mg/dl BORDERLINE HIGH 160 - 189 mg/dl HIGH >190 mg/dl VERY HIGH Performed By: #### B MP, DLDL #### [facility] [address] [address] [address] Zion Baugh GLYCOHEMOGLOBIN A1Con 2021 ADA RECOMMENDATION SEE BELOW Normal [facility] Comment on above: Result Comment: ADA RECOMMENDED LIMIT 4.0 - 6.0 ADA THERAPEUTIC TARGET < 7.0 ACTION SUGGESTED > 7.0 Performed By: #### A 1C #### [facility] [address] [address] [address] Zion Baugh Glucose [Mass/Vol] 114 mg/dL Normal [facility] Comment on above: Performed By: #### A 1C #### [facility] [address] [address] [address] Zion Baugh HbA1c (Bld) [Mass fraction] 5.6 % Normal 4.5-6.2 [facility] Comment on above: Performed By: #### A 1C #### [facility] [address] [place] [address] Dr. Zion Baugh MG MAMM DIAGNOSTIC 3D GILBERT CA Don 10-20-2021 MG MAMM DIAGNOSTIC 3D GILBERT CAD Patient: MITCH LUNSFORD Exam Date: 10/20/2021 : 1940 Gender:F Ordering : DR KIRBY BERNAL D.O. Admission #: [id number] Family : Order #: [id number] CLICK HERE TO VIEW EXAM RADIOLOGY REPORT [...] ovarian cancer at age 60. LOCATION: [facility] BREAST COMPOSITION: Scattered areas fibroglandular density. [...] Yousif M.D. on 10/20/2021 at 09:35 Normal [facility] PROF CHEM 8 (BAS METB)on Anion gap [Moles/Vol] 8.5 mmol/L Normal [facility] Comment on above: Performed By: #### B CARLOS, DLDL #### [facility] [address] [address] [address] Zion Baugh Calcium [Mass/Vol] 9.4 mg/dL Normal 8.5-10.1 [facility] Comment on above: Performed By: #### B CARLOS, DLDL #### [facility] [address] [address] [address] Zion Baugh Chloride [Moles/Vol] 98 mmol/L Normal 98-107 [facility] Comment on above: Performed By: #### B CARLOS, DLDL #### [facility] [address] [address] [address] Zion Baugh CO2 [Moles/Vol] 33.1 mmol/L Critically high 21.0-32.0 [facility] Comment on above: Performed By: #### B CARLOS, DLDL #### [facility] [address] [address] [address] Zion Baugh Creatinine [Mass/Vol] 0.75 mg/dL Normal 0.55-1.02 [facility] Comment on above: Performed By: #### B CARLOS DLDL #### [facility] [address] [address] [address] Zion Baugh EGFR-AF AFGHAN >60 Normal >=60 [facility] Comment on above: Performed By: #### B MP, DLDL #### [facility] [address] [address] [address] Zion Baugh EGFR-NON AF AFGHAN 74 mL/min/1.73m2 Normal >=60 [facility] Comment on above: Performed By: #### B MP, DLDL #### [facility] [address] [address] [address] Zion Baugh Glucose [Mass/Vol] 123 mg/dL Critically high 74-[address] [facility] Comment on above: Performed By: #### B MP, DLDL #### [facility] [address] [address] [address] Zion Baugh Potassium [Moles/Vol] 3.6 mmol/L Normal 3.5-5.1 [facility] Comment on above: Performed By: #### B MP, DLDL #### [facility] [address] [address] [address] Zion Baugh Sodium [Moles/Vol] 136 mmol/L Normal 136-145 [facility] Comment on above: Performed By: #### B MP, DLDL #### [facility] [address] [address] [address] Zion Baugh Urea nitrogen [Mass/Vol] 16.0 mg/dL Normal 7.0-18.0 [facility] Comment on above: Performed By: #### B MP, DLDL #### [facility] [address] [address] [address] Zion Baugh Urea nitrogen/Creatinine [Mass ratio] 21.3 mg/mg Normal [facility] Comment on above: Performed By: #### B MP, DLDL #### [facility] [address] [address] [address] Zion Baugh UA RANDOM W/MICROSCOPICon BACTERIA SMALL Abnormal NONE SEEN [facility] Comment on above: Performed By: #### U AMIC #### [facility] [address] [address] [address] Zion Baugh Bilirubin Ql (U) Negative Normal NEGATIVE [facility] Comment on above: Performed By: #### U AMIC #### [facility] [address] [address] [address] Zion Baugh CAST NONE SEEN Normal NONE SEEN [facility] Comment on above: Performed By: #### U AMIC #### [facility] [address] [address] [address] Zion Baugh Clarity (U) SL CLOUDY Abnormal CLEAR [facility] Comment on above: Performed By: #### U AMIC #### [facility] [address] [address] [address] Zion Baugh Color (U) LT. YELLOW Normal YELLOW [facility] Comment on above: Performed By: #### U AMIC #### [facility] [address] [address] [address] Zion Baugh Crystals LM Nom (Urine sed) NONE SEEN Normal NONE SEEN [facility] Comment on above: Performed By: #### U AMIC #### [facility] [address] [address] [address] Zion Baugh Epithelial cells LM Ql (Urine sed) FEW Abnormal NONE SEEN /RARE [facility] Comment on above: Performed By: #### U AMIC #### [facility] [address] [address] [address] Zion Baugh Glucose Ql (U) Negative Normal NEGATIVE [facility] Comment on above: Performed By: #### U AMIC #### [facility] [address] [address] [address] Zion Baugh Hemoglobin Ql (U) TRACE-INTACT Abnormal NEGATIVE [facility] Comment on above: Performed By: #### U AMIC #### [facility] [address] [address] [address] Zion Baugh Ketones Ql (U) Negative Normal NEGATIVE [facility] Comment on above: Performed By: #### U AMIC #### [facility] [address] [address] [address] Zion Baugh LEUKOCYTES MODERATE Abnormal NEGATIVE [facility] Comment on above: Performed By: #### U AMIC #### [facility] [address] [address] [address] Zion Baugh MUCOUS NONE SEEN Normal NONE SEEN [facility] Comment on above: Performed By: #### U AMIC #### [facility] [address] [address] [address] Zion Baugh Nitrite Ql (U) Negative Normal NEGATIVE [facility] Comment on above: Performed By: #### U AMIC #### [facility] [address] [address] [address] Zion Baugh pH (U) 6.0 [pH] Normal 5-9 [facility] Comment on above: Performed By: #### U AMIC #### [facility] [address] [place] [address] Dr. Zion Baugh RBC NONE SEEN Abnormal 0-2 [facility] Comment on above: Performed By: #### U AMIC #### [facility] [address] [place] [address] Dr. Zion Baugh SPEC GRAVITY 1.015 Normal 1.005-<=1.025 [facility] Comment on above: Performed By: #### U AMIC #### [facility] [address] [place] [address] Dr. Zion Baugh UA PROTEIN Negative Normal NEGATIVE/ TRACE [facility] Comment on above: Performed By: #### U AMIC #### [facility] [address] [place] [address] Dr. Zion Baugh Urobilinogen Qn (U) 0.2 {Dona'U}/dL Normal 0.2 - 1. 0 [facility] Comment on above: Performed By: #### U AMIC #### [facility] [address] [place] [address] Dr. Zion Baugh WBC 2-5 Abnormal NONE SEEN [facility] Comment on above: Performed By: #### U AMIC #### [facility] [address] [place] [address] Dr. Zion Baugh US PELVISon 10-19-2021 [place] [...] by: JOSE YOUSIF Date: 2021-10-19 09:40 Normal [facility] CNPTOUTREACHon 04-08-2020 [facility] Patient Outreach (COVAMN) ---- MITCH LUNSFORD ([id number]) 1940 F Date Time Provider [facility] During your visit today, we recorded the following information about you: Allergies As of Date: 04/08/2020 Noted Allergy Reaction SULFA (SULFONAMIDE ANTIBIOTICS) 07/01/2012 4 - Hives Date Reviewed: 07/09/2018 Reviewed by: Yeimy Arambula - Fully Assessed Order(s):SARS-COVID VACCINE 1ST DOSE APPT [[id number]] Order #: [id number] FUTURE Prescriptions as of 04/08/2020 Sig: PRESERVISION [...] Status:Closed by EPIC, PRODUSER on 04/11/20 Normal [facility] Vital Signs Date Time Vital Sign Value Performing Clinician Facility 11-17-2024 10:43-0400 Body height 160.02 cm Kirby Ball DO Work Phone: [facility] 11-17-2024 10:43-0400 Body mass index (BMI) [Ratio] 27.6 kg/m2 Kirby Ball DO Work Phone: [facility] 11-17-2024 10:43-0400 Body weight 70.93 kg Kirby Ball DO Work Phone: [facility] 11-17-2024 10:43-0400 Diastolic blood pressure 101 mm[Hg] Kirby Ball DO Work Phone: [facility] 11-17-2024 10:43-0400 Heart rate 75 /min Kirby Ball DO Work Phone: [facility] 11-17-2024 10:43-0400 Respiratory rate 12 /min Kirby Ball DO Work Phone: [facility] 11-17-2024 10:43-0400 Systolic blood pressure 193 mm[Hg] Kirby Ball DO Work Phone: [facility] 12-27-2023 10:130400 Body height 160.02 cm [facility] 12-27-2023 10:13-0400 Body mass index (BMI) [Ratio] 26.7 kg/m2 [facility] 12-27-2023 10:13-0400 Body weight 68.49 kg [facility] 12-27-2023 10:13-0400 Diastolic blood pressure 98 mm[Hg] [facility] 12-27-2023 10:13-0400 Heart rate 81 /min [facility] 12-27-2023 10:13-0400 Respiratory rate 12 /min [facility] 12-27-2023 10:13-0400 Systolic blood pressure 171 mm[Hg] [facility] 11-06-2022 10:00-0400 Body height 158.75 cm Kirby Ball Other [facility] Other 11-06-2022 10:00-0400 Body mass index (BMI) [Ratio] 26.78 kg/m2 Kirby Ball Other [facility] Other 11-06-2022 10:00-0400 Body weight 67.5 kg Kirby Ball Other [facility] Other 11-06-2022 10:00-0400 Diastolic blood pressure 94 mm[Hg] Kirby Ball Other [facility] Other 11-06-2022 10:00-0400 Respiratory rate 12 /min Kirby Ball Other [facility] Other 11-06-2022 10:00-0400 Systolic blood pressure 169 mm[Hg] Kirby Ball Other [facility] Other 08-21-2022 13:32-0400 Blood Pressure Location [facility] 08-21-2022 13:32-0400 Diastolic blood pressure 86 mm[Hg] [facility] 08-21-2022 13:32-0400 Heart rate 72 /min [facility] [place] 08-21-2022 13:32-0400 Respiratory rate 16 /min Pj N[facility] [place] 08-21-2022 13:32-0400 Systolic blood pressure 118 mm[Hg] [facility] Encounters Encounter Date Encounter Type Care Provider Facility Start: 11-17-2024 End: 11-17-2024 ambulatory Kirby Ball DO Work Phone: [facility] Work Phone: Start: 11-17-2024 End: 11-17-2024 Patient encounter procedure Kirby Ball DO -[facility] Work Phone: Start: 11-11-2024 End: 11-11-2024 ambulatory Kirby Ball DO Work Phone: [facility] Work Phone: Start: 11-11-2024 End: 11-11-2024 Patient encounter procedure Kirby Ball DO -[facility] Work Phone: Start: 10-21-2024 End: 10-21-2024 Bamboo flowsheet Jo Ann Diego DO Work Phone: [facility] Start: 10-21-2024 End: 10-21-2024 Bamboo flowsheet Jo Ann Diego DO Work Phone: [facility] Start: 10-21-2024 End: 10-21-2024 ambulatory JO ANN DIEGO Not Available Start: 10-21-2024 End: 10-21-2024 Follow-up encounter Jo Ann Diego DO Work Phone: [facility] Comment on above: Follow-up; Retinal I njection; Macular Degeneration Start: 08-11-2024 End: 08-11-2024 Bamboo flowsheet Jo Ann Diego DO Work Phone: [facility] Start: 08-11-2024 End: 08-11-2024 Bamboo flowsheet Jo Ann Diego DO Work Phone: [facility] Start: 08-11-2024 End: 08-11-2024 [...] [facility] Start: 06-02-2024 End: 06-02-2024 ambulatory JO ANN VERAER Not Available Start: 06-02-2024 End: 06-02-2024 [...] Available Start: 03-18-2024 End: 03-18-2024 Follow-up encounter J oAnn Diego DO Work Phone: [facility] [...] neovascularization (CMS/HCC) Start: 12-27-2023 End: 12-27-2023 ambulatory [facility] Work Phone: Start: 12-27-2023 End: 12-27-2023 [facility] encounter [facility] Work Phone: Start: 12-26-2023 Non-patient / Non-visit [facility] Work Phone: Start: 12-24-2023 Patient encounter procedure [facility] Start: 12-17-2023 End: 12-17-2023 ambulatory JO ANN DIEGO Not Available Start: 12-17-2023 End: 12-17-2023 Bamboo flowsheet Jo Ann Diego DO Work Phone: [facility] Start: 12-17-2023 End: 12-17-2023 Bamboo flowsheet Jo Ann Diego DO Work Phone: [facility] Start: 10-16-2023 Non-patient / Non-visit [facility] Work Phone: Start: 12-07-2022 End: 12-07-2022 ambulatory Kirby Bernal Other [facility] Other Start: 12-07-2022 Telephone encounter Kirby Bernal [facility] Start: 12-06-2022 End: 12-06-2022 ambulatory Kirby Bernal Other [facility] Other Start: 12-06-2022 Telephone encounter Kirby Bernal [facility] Start: 11-06-2022 End: 11-06-2022 ambulatory Kirby Bernal Other [facility] Other Start: 11-06-2022 Patient encounter procedure Kirby Bernal [facility] Start: 08-21-2022 End: 08-22-2022 ambulatory [facility] [...] 05-13-2024 Computerized ophthalmic imaging retina Jo Ann Diego DO Work Phone: Start: 04-15-2024 Computerized ophthalmic [...] DO Work Phone: Start: 12-17-2023 End: 12-17-2023 [facility] medical xm&eval comprhnsv estab pt [...] [facility] [address] [place] [address] Jo Ann Diego DO [address] [address] [place] [address] Arrived [facility] Comment on above: Arrived Start: 07-07-2024 End: 07-07-2024 Patient encounter procedure [facility] Comment on above: Arrived Start: 07-01-2024 End: 07-01-2024 Patient encounter procedure 07/01/2024 10:15 AM EDT Office Visit [facility] [address] [place] [phone] Jo Ann Diego, DO [address] [place] [address] Arrived [facility] Comment on above: Arrived Start: 06-02-2024 End: 06-02-2024 Patient encounter procedure 06/02/2024 1:15 PM EDT Office Visit [facility] [address] [place] [phone] Jo Ann Diego, DO [address] [place] [address] [facility] Start: 03-18-2024 End: 03-18-2024 Clinical Support 03/18/2024 3:00 PM EST Clinical Support [facility] [address] [place] [phone] Jo Ann Diego, DO [address] [place] [address] Arrived [facility] Comment on above: Arrived Start: 01-28-2024 End: 01-28-2024 Patient encounter procedure 01/28/2024 10:30 AM EST Office Visit [facility] [address] [place] [phone] Jo nAn Diego, DO [address] [place] [address] [facility] Comprehensive metabo lic 1999 panel - Serum or Plasma [facility] MG Breast - bilatera l Screening [facility] Urine culture [facility] US Eye+Orbit - bilateral IOL Bio metry - OU - Both Eyes (CPT 09370) Ophthalmology Routine Age-related nuclear cataract of both eyes Ordered: 04/15/2024 [facility] Work Phone: Comment on above: Ordered: 04/15/2024 [facility] Immunizations Immunization Date Immunization Notes Care Provider Fa cility 11-05-2019 influenza virus vaccine, split virus (incl. purified surface antigen) Kirby Bernal Other [employer] [employer] Other 11-05-2019 influenza virus vaccine, unspecified formulation [facility] 12-05-2017 influenza virus vaccine, split virus (incl. purified surface antigen) Kirby Bernal Other [employer] [facility] [employer] Other 12-05-2017 influenza virus vaccine, unspecified formulation [facility] 05-24-2015 pneumococcal conjuga te vaccine, 13 valent Kirby Bernal Other [facility] 11-05-2012 tetanus and diphther ia toxoids, adsorbed, preservative free, for adult use (5 Lf of tetanus toxoid and 2 Lf of diphtheria toxoid) Kirby Bernal Other [facility] 05-09-2011 pneumococcal polysaccharide vaccine, 23 valent Kirby Bernal Other [facility] Payers Date Payer Category Payer Medicare (Managed Care) [employer] [place] [employer] [id number] 1958 Medicare [id number] 1941 Unknown [id number] 2.16.840.1.733314.3.579. 2.593 1941 Unknown [id number] 2.16.840.1.633417.3.579. 2.593 1941 Unknown [id number] 2.16.840.1.659651.3.579. 2.727 1941 Unknown [id number] 2.16.840.1.237717.3.579. 2.125 1941 Unknown [id number] 2.16.840.1.847453.3.579. 2.125 1941 Unknown [id number] 2.16.840.1.910372.3.579. 2.125 1941 Unknown [id number] 2.16.840.1.657016.3.579. 2.125 1941 Unknown [id number] 2.16.840.1.255066.3.579. 2.125 1941 Unknown [id number] 2.16.840.1.148115.3.579. 2.125 1941 Unknown [id number] 2.16.840.1.192003.3.579. 2.125 1941 Unknown [id number] 2.16.840.1.274335.3.579. 2.125 1941 Unknown [id number] 2.16.840.1.590297.3.579. 2.125 1941 Unknown [id number] 2.16.840.1.685887.3.579. 2.125 1941 Unknown [id number] 2.16.840.1.103559.3.579. 2.125 1941 Unknown [id number] 2.16.840.1.351497.3.579. 2.1259 Medicare Anthem MCR PFFS OP [id number] Social History Date Type Detail Facility Start: 08-21-2022 End: 10-05-2022 Tobacco smoking status Never smoked tobacco (finding) [facility] Tobacco smoking status Never [facility] Start: 10-07-2023 End: 08-11-2024 Sex Assigned At Female [facility] Start: 10-05-2022 Tobacco use and exposure Smokeless tobacco non-user [facility] Start: 10-07-2023 End: 08-11-2024 History of Social function [facility] Start: 1940 Sex assigned at Not on file [facility] Start: 1940 Sex Assigned At Female [facility] Tobacco smoking status NHIS Unknown if ever smoked [facility] Work Phone: Sex Female (finding) [facility] NEGATED: Highlighted rowStart: NINF History of tobacco use Passive smoker [facility] Functional Status Date Assessment Result Facility 08-21-2022 Functional Status N/A [facility] 08-21-2022 to 10-21-2024 Jo Ann [...] 1.25 MG/0.05ML Route: Intravitreal, Site: Right Eye [facility]: [address]-3, Lot: [id number], Expiration date: 01/19/2025 Post-op Post injection exam [...] pain, redness, decreased vision or concerns. [facility] 10-21-2024 Note Right Eye Quality was good. Scan locations included subfoveal. Progression has been stable. Findings include abnormal foveal contour, subretinal fluid. Left Eye Quality was good. Scan locations included subfoveal. Progression has been stable. Findings include abnormal foveal contour. [facility] 10-21-2024 History of Presen t illness [...] 1.25 MG/0.05ML Route: Intravitreal, Site: Right Eye [facility]: [address]-5, Lot: [id number], Expiration date: 01/19/2025 Post-op Post injection exam [...] or concerns. documented in this encounter [facility] 08-11-2024 History of Presen t illness Narrative Images from the original note were not included. Assessment/Plan Diagnoses and all orders for this visit: Pseudophakia - s/p CE OS (1mth): Patient should be close to off all post-op meds. Pt. received final refraction for this eye today. documented in this encounter [facility] 07-14-2024 Note Time Out 07/14/2024. 9:58 AM. Confirmed correct patient, procedure, site, and patient consented. Anesthesia Topical anesthesia was used. Anesthetic medications included Lidocaine 2%, Proparacaine 0.5%. Procedure Preparation included 5% betadine to ocular surface, eyelid speculum. A 30 gauge needle was used. Injection: 1.25 mg Bevacizumab 1.25 MG/0.05ML Route: Intravitreal, Site: Right Eye [facility]: [address]-7, Lot: [id number], Expiration date: 01/19/2025 Post-op Post injection exam [...] pain, redness, decreased vision or concerns. [facility] 07-14-2024 Note Right Eye Quality was good. Scan locations included subfoveal. Progression has been stable. Findings include pigment epithelial detachment. Left Eye Quality was good. Scan locations included subfoveal. Progression has been stable. Findings include normal observations. Notes Good scan with normal appearance [facility] 07-14-2024 History of Presen t illness [...] 1.25 MG/0.05ML Route: Intravitreal, Site: Right Eye [facility]: [address]-9, Lot: [id number], Expiration date: 01/19/2025 Post-op Post injection exam [...] or concerns. documented in this encounter [facility] 07-07-2024 History of Presen t illness Narrative Images from the original note were not included. Assessment/Plan Diagnoses and all orders for this visit: Pseudophakia - s/p CE OS (POD #1): Patient provided with post-op form. Instructed to continue drops as well as shield. Instructed to call immediately with increased pain, redness, decreased vision, questions or concerns. documented in this encounter [facility] 07-01-2024 History of Presen t illness [...] different lens options were explained including the ypn-gx-eeturb fees for any upgrades. Intraocular lens (IOL) [...] pitting edema. documented in this encounter [facility] 06-23-2024 History of Presen t illness Narrative Images from the original note were not included. Assessment/Plan Diagnoses and all orders for this visit: Pseudophakia - s/p CE OD (POD #1): Patient provided with post-op form. Instructed to continue drops as well as shield. Instructed to call immediately with increased pain, redness, decreased vision, questions or concerns. documented in this encounter [facility] 06-02-2024 Note Right Eye Quality was good. Scan locations included subfoveal. Progression has been stable. Findings include abnormal foveal contour. Left Eye Quality was good. Scan locations included subfoveal. Progression has been stable. Findings include abnormal foveal contour. [facility] 06-02-2024 History of Presen t illness [...] 1 drop before bedtime. 180 mL 3 Nnsdowaoomt-Kyaetjry-Cebszbwpb 1-0.5-0.075 % solution Administer 1 drop into [...] Normal Normal Refraction Wearing Rx Sphere Cylinder [place] Add Right +0.25 -2.50 096 +2.25 Left +0.50 -2.25 086 +2.25 Final Rx Sphere Cylinder [place] Dist [place] Add Right -0.25 -2.50 095 20/50 +2.25 Left [place] -2.25 085 20/30 +2.25 Expiration Date: 06/02/2025 [...] different lens options were explained including the cle-rv-zwjjtm fees for any upgrades. Intraocular lens (IOL) [...] current management. documented in this encounter [facility] 05-13-2024 Note Time Out 05/13/2024. 11:20 AM. Confirmed correct patient, procedure, site, and patient consented. Anesthesia Topical anesthesia was used. Anesthetic medications included Lidocaine 2%, Proparacaine 0.5%. Procedure Preparation included 5% betadine to ocular surface, eyelid speculum. A 30 gauge needle was used. Injection: 1.25 mg Bevacizumab 1.25 MG/0.05ML Route: Intravitreal, Site: Right Eye [facility]: [address]-2, Lot: [id number], Expiration date: 01/19/2025 Post-op Post injection exam [...] pain, redness, decreased vision or concerns. [facility] 05-13-2024 Note Right Eye Quality was good. Scan locations included subfoveal. Progression has been stable. Findings include normal observations. Left Eye Quality was good. Scan locations included subfoveal. Progression has been stable. Findings include normal observations. Notes Good scan with normal appearance [facility] 05-13-2024 History of Presen t illness [...] 1.25 MG/0.05ML Route: Intravitreal, Site: Right Eye [facility]: [address]-2, Lot: [id number], Expiration date: 01/19/2025 Post-op Post injection exam [...] or concerns. documented in this encounter [facility] 04-15-2024 Note Right Eye Quality was poor. Scan locations included subfoveal. Progression has been stable. Findings include abnormal foveal contour. Left Eye Quality was borderline. Scan locations included subfoveal. Progression has been stable. Findings include normal observations. Notes Good scan with normal appearance OS [facility] 04-15-2024 History of Presen t illness [...] last injection. documented in this encounter [facility] 03-18-2024 Note Time Out 03/18/2024. 3:58 PM. Confirmed correct patient, procedure, site, and patient consented. Anesthesia Topical anesthesia was used. Anesthetic medications included Lidocaine 2%, Proparacaine 0.5%. Procedure Preparation included 5% betadine to ocular surface, eyelid speculum. A 30 gauge needle was used. Injection: 1.25 mg Bevacizumab 1.25 MG/0.05ML Route: Intravitreal, Site: Right Eye [facility]: [address]-5, Lot: [id number], Expiration date: 05/14/2024 Post-op Post injection exam [...] pain, redness, decreased vision or concerns. [facility] 03-18-2024 Note Right Eye Quality was poor. Scan locations included subfoveal. Progression has been stable. Findings include normal observations. Left Eye Quality was borderline. Scan locations included subfoveal. Progression has been stable. Findings include normal observations. Notes Good scan with normal appearance [facility] 03-18-2024 History of Presen t illness [...] 1.25 MG/0.05ML Route: Intravitreal, Site: Right Eye [facility]: [address]-4, Lot: [id number], Expiration date: 05/14/2024 Post-op Post injection exam [...] after Avastin. documented in this encounter [facility] 02-14-2024 Note Time Out 01/28/2024. 11:00 AM. Confirmed correct patient, procedure, site, and patient consented. Anesthesia Topical anesthesia was used. Anesthetic medications included Lidocaine 2%, Proparacaine 0.5%. Procedure Preparation included 5% betadine to ocular surface, eyelid speculum. A 30 gauge needle was used. Injection: 1.25 mg Bevacizumab 1.25 MG/0.05ML Route: Intravitreal, Site: Right Eye [facility]: [address]-5, Lot: [id number], Expiration date: 03/22/2024 Post-op Post injection exam [...] pain, redness, decreased vision or concerns. [facility] 02-03-2024 Note Right Eye Quality was good. Scan locations included subfoveal. Progression has been stable. Findings include abnormal foveal contour, pigment epithelial detachment, subretinal fluid. Left Eye Quality was good. Scan locations included subfoveal. Progression has been stable. Findings include normal observations. Notes Good scan with normal appearance OS [facility] 01-28-2024 History of Presen t illness [...] 1.25 MG/0.05ML Route: Intravitreal, Site: Right Eye [facility]: [address]-8, Lot: [id number], Expiration date: 03/22/2024 Post-op Post injection exam [...] or concerns. documented in this encounter [facility] 12-17-2023 Note Right Eye Quality was good. Scan locations included subfoveal. Progression has been stable. Findings include abnormal foveal contour. Left Eye Quality was good. Scan locations included subfoveal. Progression has been stable. Findings include abnormal foveal contour. 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 documented in this encounter [facility] 12-07-2022 Evaluation note Encounter Date Diagnosis Assessment Notes Dec, Acute cystitis without hematuria (ICD-10 - N30.00) [email or web address] Other 09-05-2023 Evaluation note* Encounter Date Diagnosis [...] - R53.83) Check labs: TSH and H/H [email or web address] Other 06-20-2023 NoteChief Complaint consultation for bowel [...] Mother. Primary malignant neoplasm of female breast: Sister.[facility] Comment on above:Result Comment: Electronically Signed By: MAKENZIE PONCE, Pj Rahman\Date and Time Signed: 08/21/22 14:16 EDTEvaluation + Plan note No data available for this section [facility] Evaluation noteNo [employer] Other Evaluation note* Diagnosis Exudative age-related macular degeneration of right eye with active choroidal neovascularization (CMS/HCC)- Primary Age-related nuclear cataract of both eyes Keratoconjunctivitis sicca of both eyes not specified as Sjogren's documented in this encounter [facility] HealthcareEvaluation note* Diagnosis Onset Date Resolution Status Cervical spondylosis acute H/O malignant neoplasm of breast acute Hypercholesterolemia acute Hypertension acute IBS (irritable bowel syndrome) acute Medicare annual wellness visit, subsequent acute Rheumatoid arthritis acute Screening mammogram for breast cancer acute [facility] Work Phone: Evaluation note* Diagnosis Age-related nuclear [...] by other means documented in this encounter [facility] HealthcareEvaluation note* Diagnosis Pseudophakia- Primary Lens replaced by other means Age-related nuclear cataract of left eye documented in this encounter [facility] HealthcareEvaluation note* Diagnosis Exudative age-related macular degeneration of right eye with active choroidal neovascularization (CMS/HCC)- Primary documented in this encounter [facility] HealthcareEvaluation note* Diagnosis Pseudophakia- Primary Lens replaced by other means documented in this encounter [facility] HealthcareEvaluation note* Diagnosis Exudative age-related macular degeneration of right eye with active choroidal neovascularization (HCC)- Primary documented in this encounter [facility] HealthcareEvaluation noteNo assessment information availableGe[facility] Work Phone: Evaluation note* Diagnosis Onset Date Resolution Status Admit Date Cervical spondylosis acute Nov 10:38am H/O malignant neoplasm of breast acu te November 17, 2024 10:38am Hypercholesterolemia acute Nov 10:38am Hypertension acute November 172024 10:38am IBS (irritable bowel syndrome) acute November 17, 2024 10:38am Rheumatoid arthritis acute Nov 10:38am [facility] Work Phone: History general Narrative - Reported* [...] Colonoscopy 09/2022 Hospitalization History SEE SURGICAL HX [email or web address] Other Hospital Discharge instructions No data available for this section [facility] Progress note No data available for this section [facility] [place] Reason for referral (narrative)No reason for referral information availableGe[facility] Work Phone: Summary Purpose Family History Relationship [...] section and content) DATE CREATED AUTHOR 04/11/2020 [facility] DATE CREATED AUTHOR AUTHOR'S ORGANIZ ATION 10/25/2021 [facility] DATE CREATED AUTHOR AUTHOR'S ORGANIZ ATION 09/21/2022 [facility] DATE CREATED AUTHOR AUTHOR'S ORGANIZ ATION 10/22/2024 [facility] EPIC Patient Care team informatio n (unrecognized section and content) Team Status: Active Member Role Status Dates Kirby Bernal DO Primary Care Provider Active Team Status: Inactive Member Role Status Dates Kirby Bernal DO Primary Care Provider Active Start: November 11, 2024 End: November 11, 2024 Kirby Bernal DO Attending Provider Active Sta rt: November 11, 2024 End: November 11, 2024 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 Start Date End Date Kirby Bernal MD [address] [place] [phone] PCP - General Internal Medicine 08/28/23 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 Start Date End Date Kirby Bernal MD [address] [phone] PCP - General Internal Medicine 08/28/23 Team [...] December 27, 2023 End: December 27, 2023 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 Start Date End Date Kirby Bernal MD [address] [place] [address] PCP - General Internal Medicine 08/28/23 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 Start Date End Date Kirby Bernal MD [address] [place] [address] PCP - General Internal Medicine 08/28/23 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 Start Date End Date Kirby Bernal MD [address] [place] [phone] PCP - General Internal Medicine 08/28/23 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 Start Date End Date Kirby Bernal MD [address] [place] [address] PCP - General Internal Medicine 08/28/23 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 Start Date End Date Kirby Bernal MD [address] [place] [address] PCP - General Internal Medicine 08/28/23 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 Start Date End Date Kirby Bernal MD PCP - General Internal Medicine 08/28/23 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 Start Date End Date Kirby Bernal MD PCP - General Internal Medicine 08/28/23 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 Start Date End Date Kirby Bernal DO [address] [facility] [place] [phone] PCP - General Internal Medicine 08/28/23 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 Start Date End Date Kirby Bernal DO [address] [facility], [phone] PCP - General Internal Medicine 08/28/23 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 Start Date End Date Kirby Bernal DO [address] [facility], [phone] PCP - General Internal Medicine 08/28/23 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 Start Date End Date Kirby Bernal DO [address] [facility], [phone] PCP - General Internal Medicine 08/28/23 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 [employer] provides no warranty or guarantee of the accuracy or completeness of information in this document.
[2024-12-05 12:18] LABS: Glucose Urine UA NEGATIVE (NEGATIVE)
[2024-12-05 12:33] LABS: Cast Seen? NONE SEEN #/LPF (NONE SEEN); Crystals Seen? None Seen #/HPF (None Seen)
== END 2024-12-05 12:03 | disposition home or self-care (01) ==
LOC: LAB 12:02
PROVIDERS: PCP Internal Medicine; Visit Provider Internal Medicine
DX: R30.0 Dysuria (principal)
CPT/HCPCS: 81001; 87086

== ENCOUNTER 2025-01-11 08:58 | Outpatient (OUT) | payer MEDICARE, SELFPAY ==
--- OUTSIDE RECORDS SUMMARY | 2024-12-30 09:15 | XMS_ITS | Encounter Summary ---
Author Organization [facility] Address [address] [place] [address] Care Team Providers Care Recruiter Coordinator Name Role Phone Kirby Bernal DO Primary Care Provider [phone] Reason for Visit * ReasonCommentsMacular DegenerationRetinal Injection Encounter Details DateTypeDepartmentCare Team (Latest Contact Info)Zvrzslweuxz01/29/2025 10:15 AM EDTClinical Support [facility] [address] [place] [id number] Jc Diego DO [address] [place], [place] [id number] Macular Degeneration; Retinal Injection Social History Tobacco UseTypesPacks/DayYears UsedDateSmoking Tobacco: NeverPassive Smoke Exposure: NeverSmokeless Tobacco: NeverCommentsUnknownSex and Gender InformationValueDate RecordedSex Assigned at BirthNot on fileLegal SexFemale 05/16/2022 7:17 PM EDTGender IdentityNot on fileSexual OrientationNot on file documented as of this encounter Progress Notes * Jc Diego DO - 12/30/2024 10:15 AM EDT Images from the original note were not [...] has been stable. Findings include pigment epithelial detachment, subretinal fluid. Left Eye Quality was good. Scan locations included subfoveal. Progression has been stable. Findings include normal observations. Notes Good scan with normal appearance left eye (OS) Linked Images Intravitreal Injection, Pharmacologic Agent - OD - Right Eye Time Out 12/30/2024. 11:13 AM. Confirmed correct patient, procedure, site, and patient consented. Anesthesia Topical anesthesia was used. Anesthetic medications included Lidocaine 2%, Proparacaine 0.5%. Procedure Preparation included 5% betadine to ocular surface, eyelid speculum. A 30 gauge needle was used. Injection: 1.25 mg Bevacizumab 1.25 MG/0.05ML Route: Intravitreal, Site: Right Eye [facility]: [id number], Lot: [id number], Expiration date: 01/19/2025 Post-op Post injection exam [...] With intraocular surgery, there is potential for directretinal damage through retinal or RPE tear, or infection, with subsequent vision loss. Informative Intravitreal pamphlet provided as well as an OMIC consent. Of course, the treatment may fail to accomplish the overall therapeutic objectives, which is to stall or decrease the amount of retinal edema/ bleeding, and therefore stall or improve vision loss. Intravitreal Anti-VEGF: Consent was obtained and questions answered. Operative eye was identified, receiving topical proparacaine, 5% betadine, and 2% xylocaine jelly. A lid speculum was placed and the inferotemp. injection site received additional anesthetic with a proparacaine soaked cotton swab.Using calipers (set at 3.5mm for pseudo and 4mm for phakic), the inferotemp. limbus was measured, sclera marked and 2 additional drops of betadine placed. Avoiding any talking to avoid contamination,intravitreal injection was carried out without difficulty. Any residual amount of medication was discarded appropriately. The patient tolerated the procedure well and instructed to call with increased pain, redness, decreased vision or concerns. Assessment & Plan Exudative age-related macular degeneration of right eye with active choroidal neovascularization (HCC) documented in this encounter Plan of Treatment DateTypeDepartmentCare Team (Latest Contact Info)Tbvwqhmfndw12/10/2026 10:45 AM ESTClinical Support [facility] [address] [place] [address] Jc Diego, DO [address] [place] [address] documented as of this encounter Procedures Procedure NamePriorityDate/TimeAssociated DiagnosisCommentsINTRAVITREAL INJECTION, PHARMACOLOGIC AGENT - OD - RIGHT MZBWefrpos19/29/2025 11:13 AM EDT Exudative age-related macular degeneration of right eye with active choroidal neovascularization (HCC) OCT, RETINA - OU - BOTH DTXMOuohjsi32/29/2025 11:10 AM EDT Exudative age-related macular degeneration of right eye with active choroidal neovascularization (HCC) documented in this encounter Results * Intravitreal Injection, Pharmacologic Agent - OD - Right Eye (12/30/2024 11:13 AM EDT)Anatomical RegionLateralityModalityHeadOther Narrative 12/30/2024 11:13 AM EDT Time Out 12/30/2024. 11:13 AM. Confirmed correct patient, procedure, site, and patient consented. Anesthesia Topical anesthesia was used. Anesthetic medications included Lidocaine 2%, Proparacaine 0.5%. Procedure Preparation included 5% betadine to ocular surface, eyelid speculum. A 30 gauge needle was used. Injection: 1.25 mg Bevacizumab 1.25 MG/0.05ML ??Route: Intravitreal, Site: Right Eye ??[facility]: [id number], Lot: [id number], Expiration date: 01/19/2025 Post-op Post injection exam [...] Intravitreal injection with the prescribed antiVEGF agent. ?? With intraocular surgery, there is potential for direct retinal damage through retinal or RPE tear, or infection, with subsequent vision loss. ?? Informative Intravitreal pamphlet provided as well as an OMIC consent. ??Of course, the treatment may fail to accomplish the overall therapeutic objectives, which is to stall or decrease the amount of retinal edema / bleeding, and therefore stall or improve vision loss. Intravitreal Anti-VEGF: ??Consent was obtained and questions answered. ?? Operative eye was identified, receiving topical proparacaine, 5% betadine, and 2% xylocaine jelly. ??A lid speculum was placed and the inferotemp. injection site received additional anesthetic with a proparacaine soaked cotton swab. ??Using calipers (set at 3.5mm for pseudo and 4mm for phakic), the inferotemp. limbus was measured, sclera marked and 2 additional drops of betadine placed. ??Avoiding any talking to avoid contamination, intravitreal injection was carried out without difficulty. Any residual amount of medication was discarded appropriately. The patient tolerated the procedure well and instructed to call with increased pain, redness, decreased vision or concerns. ?? Authorizing ProviderResult [facility] Centerj[facility]reet [facility]cknight [facility] PROCEDURESFinal Result * OCT, Retina - OU - Both Eyes (12/30/2024 11:10 AM EDT)Anatomical Region LateralityModalityHeadOptical Coherence Tomography Narrative 12/30/2024 11:10 AM EDT Right Eye Quality was good. Scan locations included subfoveal. Progression has been stable. Findings include pigment epithelial detachment, subretinal fluid. Left Eye Quality was good. Scan locations included subfoveal. Progression has been stable. Findings include normal observations. Notes Good scan with normal appearance left eye (OS) Authorizing ProviderResult TypeBro[facility] TOMOGRAPHY Final Result documented in this encounter Visit Diagnoses Diagnosis Exudative age-related macular degeneration of right eye with active choroidal neovascularization (HCC)- Primary documented in this encounter Administered Medications Medication OrderMAR ActionAction DateDoseRateSite Bevacizumab solution prefilled syringe 1.25 mg 1.25 mg, Intravitreal, Once PRN Procedure, Starting on Sat12/30/24 at 1113, For 1 dose Indications:Exudative age-related macular degeneration of right eye with active choroidal neovascularization (HCC)Given12/30/2024 11:13 AM EDT1.25 mgRight Eye documented in this encounter Care Teams Team MemberRelationshipSpecialtyStart DateEnd Date Kirby Bernal DO [address] [place] [address] PCP - GeneralInternal Medicine08/28/23documented as of this encounter
--- OUTSIDE RECORDS SUMMARY | 2025-01-11 09:01 | XMS_ITS | Encounter Summary ---
Author Organization [facility] Address [address] [place] [address] Care Team Providers Care Pc Network Technician Name Role Phone Kirby Bernal DO Primary Care Provider [phone] Encounter Details DateTypeDepartmentCare Team (Latest Contact Info)Rjibavzkqkb86/29/2025Travel Social History Tobacco UseTypesPacks/DayYears UsedDateSmoking Tobacco: NeverPassive Smoke Exposure: NeverSmokeless Tobacco: NeverCommentsUnknownSex and Gender InformationValueDate RecordedSex Assigned at BirthNot on fileLegal SexFemale 05/16/2022 7:17 PM EDTGender IdentityNot on fileSexual OrientationNot on file documented as of this encounter Plan of Treatment DateTypeDepartmentCare Team (Latest Contact Info)Gbexqcgogix19/10/2026 10:45 AM ESTClinical Support [facility] [address] [place] [address] Jc Diego DO [address] [place] [address] documented as of this encounter Visit Diagnoses Not on filedocumented in this encounter Care Teams Team MemberRelationshipSpecialtyStart DateEnd Date Kirby Bernal DO [address] [place] [address] PCP - GeneralInternal Medicine08/28/23documented as of this encounter
--- OUTSIDE RECORDS SUMMARY | 2025-01-11 09:01 | XMS_ITS | Clinical Summary ---
Author Organization [facility] Address [address] [place] [address] Care Team Providers Care Fishing Rod Mechanic Name Role Phone Kirby Bernal DO Primary Care Provider [phone] Allergies Active AllergyReactionsCriticalityNoted DateCommentsSulfa AntibioticsHives,Rash Low06/30/2012 Medications MedicationSigDispense QuantityRefillsLast FilledStart DateEnd DateStatus atorvastatin (Lipitor) 40 MG tablet Take 40 mg by mouth.08/13/2022ctive lisinopril-hydroCHLOROthiazide 20-12.5 MG tablet Take by mouth.08/13/2022ctive ciprofloxacin (Cipro) 250 MG tablet 12/08/2022ctive carvedilol (Coreg) 6.25 MG tablet Every 12 hours11/20/2024tive metoprolol tartrate (Lopressor) 25 MG tablet Take 25 mg by mouth in the morning and 25 mg before bedtime.12/30/2024 Discontinued(Ineffective) Zbiyktkkfwc-Bifhecpj-Cajzptcsh 1-0.5-0.075 % solution Indications:Age-related nuclear cataract of both eyesAdminister 1 drop into affected eye(s) in the morning and 1 drop at noon and 1 drop in the evening and 1 drop before bedtime. 10 mL Discontinued(Therapy completed)Hospital, Clinic, or Other Facility Administered MedicationOrdered DoseRouteFrequencyStart DateEnd Date Status Bevacizumab solution prefilled syringe 1.25 mg Indications:Exudative age-related macular degeneration of right eye with active choroidal neovascularization (HCC)1.25 mgIZOnce PRN Eqkmpkthq89/29/2025 12/30/2024Ended Active Problems ProblemNoted DateDiagnosed DateAge-related nuclear cataract of left eye 07/01/20240619Hsocyxwguzvm66/22/2025Keratoconjunctivitis sicca of both eyes not specified as Sjogren's007/03/2023Exudative age-related macular degeneration of right eye with active choroidal vycnpsffrdbovwcwoa04/26/2023 Resolved Problems ProblemNoted DateDiagnosed DateResolved DateAge-related nuclear cataract of both eyes/ Encounters DateTypeDepartmentCare SsdhOuxbxljyenh11/29/2025 10:15 AM EDTClinical Support [facility] [address] [place] [address] Jc Diego, Macular Degeneration; Retinal Trvmjutae16/29/2025amboo flowsheet [facility] [address] [place] [address] Jc Diego, 12/30/20249998Tonsdn43/20/2025 9:30 AM EDTClinical Support [facility] [address] [place] [address] Jc Diego, Follow-up; Retinal Injection; Macular Vysiveqcednj99/20/2025amboo flowsheet [facility] [address] [place] [address] Jc Diego, 10/21/2024Travelfrom Last 3 Months Family History Medical HistoryRelationNameCommentsNo Known ProblemsFatherNo Known Problems MotherNo Known ProblemsSisterRelationNameStatusCommentsFatherMotherSister Social History Tobacco UseTypesPacks/DayYears UsedDateSmoking Tobacco: NeverPassive Smoke Exposure: NeverSmokeless Tobacco: Never Tobacco Cessation:Counseling Given: No CommentsUnknownSex and Gender InformationValueDate RecordedSex Assigned at BirthNot on fileLegal BorIwdims84/15/2023 7:17 PM EDTGender IdentityNot on fileSexual OrientationNot on file Plan of Treatment DateTypeDepartmentCare Team (Latest Contact Info)Yvsndrwxzwe62/10/2026 10:45 AM ESTClinical Support [facility] [address] [place] [address] Jc Diego, DO [address] [place] [address] Procedures Procedure NamePriorityDate/TimeAssociated DiagnosisCommentsINTRAVITREAL INJECTION, PHARMACOLOGIC AGENT - OD - RIGHT FXEXgzymka28/29/2025 11:13 AM EDT Exudative age-related macular degeneration of right eye with active choroidal neovascularization (HCC) OCT, RETINA - OU - BOTH XFVNJnfyckx29/29/2025 11:10 AM EDT Exudative age-related macular degeneration of right eye with active choroidal neovascularization (HCC) INTRAVITREAL INJECTION, PHARMACOLOGIC AGENT - OD - RIGHT OECJogozsj04/20/2025 10:22 AM EDT Exudative age-related macular degeneration of right eye with active choroidal neovascularization (HCC) OCT, RETINA - OU - BOTH SOIRFlpqsaw18/20/2025 10:19 AM EDT Exudative age-related macular degeneration of right eye with active choroidal neovascularization (HCC) from Last 3 Months Results * Intravitreal Injection, Pharmacologic Agent - [...] 1.25 MG/0.05ML ??Route: Intravitreal, Site: Right Eye ??[facility]: [id number], Lot: [id number], Expiration date: 01/19/2025 Post-op Post injection exam [...] decreased vision or concerns. ?? Authorizing ProviderResult [facility]Result [facility] Mcknight [place] PROCEDURESFinal Result * OCT, Retina - OU [...] normal appearance left eye (OS) Authorizing ProviderResult TypeResult [facility]jaspreet Mcknight evette [facility] TOMOGRAPHY Final Result * Intravitreal Injection, Pharmacologic Agent - OD - Right Eye (10/21/2024 10:22 AM EDT)Anatomical RegionLateralityModalityHeadOther Narrative 10/21/2024 10:22 AM EDT Time Out 10/21/2024. 10:22 AM. Confirmed correct patient, procedure, site, and patient consented. Anesthesia Topical anesthesia was used. Anesthetic medications included Lidocaine 2%, Proparacaine 0.5%. Procedure Preparation included 5% betadine to ocular surface, eyelid speculum. A 30 gauge needle was used. Injection: 1.25 mg Bevacizumab 1.25 MG/0.05ML ??Route: Intravitreal, Site: Right Eye ??[facility]: [id number], Lot: [id number], Expiration date: 01/19/2025 Post-op Post injection exam [...] decreased vision or concerns. ?? Authorizing ProviderResult TypeResult StatusJokhoi Diego [facility] PROCEDURESFinal Result * OCT, Retina - OU - Both Eyes (10/21/2024 10:19 AM EDT)Anatomical Region LateralityModalityHeadOptical Coherence Tomography Narrative 10/21/2024 10:19 AM EDT Right Eye Quality was good. Scan locations included subfoveal. Progression has been stable. Findings include abnormal foveal contour, subretinal fluid. Left Eye Quality was good. Scan locations included subfoveal. Progression has been stable. Findings include abnormal foveal contour. Authorizing ProviderResult TypeResult StatusJonatjaspreet Diego [facility]OP[facility] TOMOGRAPHY Edited Result - Final from Last 3 Months Insurance Care Teams Team MemberRelationshipSpecialtyStart DateEnd Date Kirby Bernal DO [address] [place] [address] PCP - GeneralInternal Medicine08/28/23
--- OUTSIDE RECORDS SUMMARY | 2025-01-11 09:01 | XMS_ITS ---
Author Organization [facility] Address [address] [place] [address] Care Team Providers Care Construction Stonemason Name Role Phone Kirby Bernal Primary Care Provider [phone] Active Problems ProblemNoted DateDiagnosed DateRA (rheumatoid arthritis)12/02/2013Joint ache 06/03/2013Hot vcgkikt6312/03/2012reast cancer Overview (07/01/2012): right; ER/IN+; HER2- Current Treatment and Therapy Plans No current plan information found. Past Treatment and Therapy Plans Plan NameStart DateDiscontinue DateTreatment MedicationsDiscontinue ReasonPlan ProviderCyclesTC - DOCETAXEL 75 CYCLOPHOSPHAMIDE 600 D1 - Q21D07/24/2012* cyclophosphamide iv piggyback (CYTOXAN) * DOCEtaxel iv piggyback (TaxoTERE) * pegfilgrastim (NEULASTA) Errol Mclean E4 of 4 cycles started
--- OUTSIDE RECORDS SUMMARY | 2025-01-11 09:01 | XMS_ITS | Encounter Summary ---
Author Organization [facility] Address [address] [place] [address] Care Team Providers Care Dental Office Receptionist Name Role Phone Kirby Bernal DO Primary Care Provider [phone] Encounter Details DateTypeDepartmentCare Team (Latest Contact Info)Injfinpepkz17/29/[address]25amboo flowsheet [facility] [address] [place] [address] Jc Diego DO [address] [place] [address] Social History Tobacco UseTypesPacks/DayYears UsedDateSmoking Tobacco: NeverPassive Smoke Exposure: NeverSmokeless Tobacco: NeverCommentsUnknownSex and Gender InformationValueDate RecordedSex Assigned at BirthNot on fileLegal SexFemale 05/16/2022 7:17 PM EDTGender IdentityNot on fileSexual OrientationNot on file documented as of this encounter Plan of Treatment DateTypeDepartmentCare Team (Latest Contact Info)Bhewyrxvqnj74/10/2026 10:45 AM ESTClinical Support [facility] [address] [place] [address] Jc Diego DO [address] [place] [address] documented as of this encounter Visit Diagnoses Not on filedocumented in this encounter Care Teams Team MemberRelationshipSpecialtyStart DateEnd Date Kirby Bernal DO [address] [place] [address] PCP - GeneralInternal Medicine08/28/23documented as of this encounter
--- OUTSIDE RECORDS SUMMARY | 2025-01-11 09:01 | XMS_ITS | Clinical Summary ---
Author Organization [facility] Address [address] [place] [address] Phone Care Team Providers Care Spinning Doffer Name Role Phone Unavailable Primary Care Provider Unavailabl e Social History Tobacco UseTypesPacks/DayYears UsedDateSmoking Tobacco: Never Assessed CommentsUnknownSex and Gender InformationValueDate RecordedSex Assigned at Not on fileLegal VpoQcjxpr61/06/2023 2:58 PM EDTGender IdentityNot on fileSexual OrientationNot on file Plan of Treatment Health MaintenanceDue DateLast DoneCommentsLipid Panel2DTaP/Tdap/Td Vaccines (1 - Tdap)07/24/1963Pneumococcal Vaccine (1 of 1 - PCV)07/24/1991Zoster Vaccines (1 of 2)07/24/1991RSV High Risk: (Elderly (60+) or Population) (1 - 1-dose 75+ series)2016Yearly Adult Krpxydom58/07/2022, 10/09/2021, 09/01/2020Influenza Vaccine (#1)5COVID-19 Vaccine ( - season)5Bone Density Scan51, 09/23/2020HIB VaccinesAged OutNo longer eligible based on patient's age to complete this topic HPV VaccinesAged OutNo longer eligible based on patient's age to complete this topicHepatitis A VaccinesAged OutNo longer eligible based on patient's age to complete this topicHepatitis B VaccinesAged OutNo longer eligible based on patient's age to complete this topicIPV VaccinesAged OutNo longer eligible based on patient's age to complete this topicMeningococcal VaccineAged OutNo longer eligible based on patient's age to complete this topicRotavirus VaccinesAged Out No longer eligible based on patient's age to complete this topic
--- OUTSIDE RECORDS SUMMARY | 2025-01-11 09:01 | XMS_ITS | Clinical Summary ---
Author Organization [facility] Address [address] [place] [address] Care Team Providers Care Custodial Services Manager Name Role Phone Kirby Bernal DO Primary Care Provider [phone] Allergies Active AllergyReactionsCriticalityNoted DateCommentsSulfa (Sulfonamide Antibiotics)Hives07/01/2012 Medications MedicationSigDispense QuantityRefillsLast FilledStart DateEnd DateStatus calcium, elemental, Tab Take 500 mg by mouth three times daily. ctive Cholecalciferol, Vitamin D3, (VITAMIN D) 1,000 unit cap Take 1 capsule by mouth once daily.ctive lisinopril-hydrochlorothiazide 20-12.5 mg per tablet Take 1 tablet by mouth once daily.ctive vit C/E/Zn/coppr/lutein/zeaxan (PRESERVISION AREDS 2 ORAL) Indications:Malignant neoplasm of right breast in female, estrogen receptor positive, unspecified site of breast (HCC)Take by mouth once daily.Active atorvastatin (LIPITOR) 40 mg tablet Indications:Malignant neoplasm of right breast in female, estrogen receptor positive, unspecified site of breast (HCC)Take 40 mg by mouth once daily. 06/12/2017Active Active Problems ProblemNoted DateDiagnosed DateRA (rheumatoid arthritis)12/02/2013Joint ache 06/03/2013Hot cdxigsf1212/03/2012reast cancer Overview (07/01/2012): right; ER/PA+; HER2- Immunizations ImmunizationAdministration DatesNext Dueinfluenza (aIIV3) vaccine, age 65+ yr, trivalent, PF (FLUAD)12/05/2017 Family History Medical HistoryRelationCommentsCancerMotherovarianBreast CancerSister 4Relation StatusCommentsFatherDeceasedMotherDeceased (Age 59)ovarian cancerSister 1Alive Sister 2AliveSister 3AliveSister 4 Social History Tobacco UseTypesPacks/DayYears UsedDateSmoking Tobacco: FormerSmokeless Tobacco: NeverAlcohol UseStandard Drinks/WeekCommentsYes0 (1 standard drink = 0.6 oz pure alcohol)occ.PHQ-2AnswerDate RecordedPHQ-2 aixdr986Area Deprivation Index AnswerDate RecordedNational Score (1-100), lower number is lower riskNot on file 02/10/2020State Score (1-10), lower number is lower riskNot on file02/10/2020 Data from: https://www.neighborhoodatlas.medicine.[facility].edu/. Last address used for calculationNot on file02/10/2020CommentsNoSex and Gender Information ValueDate RecordedSex Assigned at BirthNot on fileLegal TjoHbdoax74/26/2013 12:23 PM EDTGender IdentityNot on fileSexual OrientationNot on file Last Filed Vital Signs Vital SignReadingTime TakenCommentsBlood Lbhdbuoe822/7605 1:54 PM EDT Qlbmu6810/08/2019 1:54 PM CEVFcekxxvwtso36.7 ??C (98.1 ??F)07/09/2018 1:54 PM EDTRespiratory Sbis0540 1:54 PM EDTOxygen Bqyfsuxstj28%07/09/2018 1:54 PM EDTInhaled Oxygen Concentration--Sqtyea61.8 kg (145 lb)07/09/2018 1:54 PM EDT Xrnscn346.2 cm (5' 1.5 )07/09/2018 1:54 PM EDTBody Mass Index26.9607/09/2018 1:54 PM EDT Plan of Treatment Health MaintenanceDue DateLast DoneCommentsAnxiety Endbulanz86/22/1960Depression Umciqjofn08/22/1960DTaP,Tdap,Td Vaccine (1 - Tdap)1Diabetes Screening 1986Pneumococcal Vaccine: 50+ (1 of 1 - PCV)07/24/1991Shingrix Vaccine (1 of 2)07/24/1991Bone Density Nuvehmava13/22/2007RSV Vaccine (1 - 1-dose 75+ series)2016Advance Directive Utasdsvhvc64/01/2025ovid-19 Vaccine (2024- season)2024Influenza Vaccine (#1) Insurance Care Teams Team MemberRelationshipSpecialtyStart DateEnd Date Kirby Bernal DO PCP - GeneralInternal Medicine06/27/12
--- NOTE | 2025-01-11 09:02 | MM_ITS ---
Patient Name: MITCH LUNSFORD MR#: [id number] : 1940 Exam Date: 01/11/2025 Ordering Doctor: DR VELVET MEEHAN D.O. RADIOLOGY REPORT PROCEDURE: MM TOMOSYNTHESIS SCREENING BI COMPARISON: MM TOMOSYNTHESIS SCREENING BI, 01/09/2024. MG MAMM DIAGNOSTIC 3D GILBERT CAD, 10/20/2021. MG MAMM DIAGNOSTIC 3D GILBERT CAD, 09/23/2020. MAMMO POST BIOPSY UNILATERAL RIGHT, 06/20/2012. INDICATIONS: Screening Calculator Name NCI Breast Cancer Risk Assessment Tool 5 Year Breast Cancer Risk n/a% Lifetime Breast Cancer Risk n/a% Personal Breast Cancer Yes, 2013 right lumpectomy Personal Ovarian Cancer No Treatments radiation and chemotherapy Family Cancers Sister with breast cancer at age 63; Sister with breast cancer at age 70; Mother with ovarian cancer at age 59. LOCATION: [facility] BREAST COMPOSITION: There are scattered areas of fibroglandular density. FINDINGS: RIGHT BREAST: No significant suspicious finding. Benign-appearing calcifications are redemonstrated. LEFT BREAST: No significant suspicious finding. Benign-appearing calcifications are redemonstrated. DIAGNOSTIC CATEGORY 2--BENIGN FINDING. NO CHANGE FROM COMPARISON. RECOMMENDATIONS: ROUTINE MAMMOGRAM AND CLINICAL EVALUATION IN 12 MONTHS. Dictated by: Vishnu Braga MD on 01/11/2025 at 11:14 Approved by: Vishnu Braga MD on 01/11/2025 at 12:58
== END 2025-01-11 08:59 | disposition home or self-care (01) ==
LOC: RAD 08:58
PROVIDERS: PCP Internal Medicine; Visit Provider Internal Medicine
DX: Z12.31 Encounter for screening mammogram for malignant neoplasm of breast (principal); Z78.0 Asymptomatic menopausal state; Z85.3 Personal history of malignant neoplasm of breast; Z80.3 Family history of malignant neoplasm of breast; Z80.41 Family history of malignant neoplasm of ovary; M85.88 Other specified disorders of bone density and structure, other site
CPT/HCPCS: 77063; 77067; 77080